=== PATIENT | male | born 1990 | race Caucasian/White ===

== ENCOUNTER → 2019-12-31 13:29 | Outpatient (BNVA) | payer OTHER, SELFPAY | PROVIDERS: PCP Internal Medicine; Visit Provider Urology | DX: R31.0 Gross hematuria (principal); R36.1 Hematospermia | CPT/HCPCS: 99214 ==

== ENCOUNTER → 2020-05-21 13:02 | Outpatient (REF) | payer OTHER, SELFPAY ==
--- NOTE | 2020-05-21 13:05 | HM_ITS ---
TEST PERFORMED: Cardiac event monitoring. ENROLLMENT PERIOD: 05/21/2020 to 06/20/2020-30 days. REQUESTING PHYSICIAN: Dr. Jones. REASON FOR TEST: Unspecified cardiac arrhythmias. FINDINGS: In the above monitoring period of 30 days, the underlying rhythm was sinus. The ventricular rates ranged from 64 beats per minute to 187 beats per minute. One isolated PVC noted. Very rare atrial ectopy. During times of the patient's symptoms including palpitations, dizziness, racing, fluttering, and shortness of breath, the underlying rhythm was sinus tachycardia. CONCLUSION: Study is positive for sinus tachycardia and very rare atrial ectopy/premature ventricular contraction, but otherwise unremarkable. Ganesh Baker MD HS/MODL / [id number]
== END ==
LOC: HO.CARD 13:02
PROVIDERS: PCP Internal Medicine; Visit Provider Internal Medicine Cardiovascular Disease
DX: I49.9 Cardiac arrhythmia, unspecified (principal); R00.2 Palpitations
CPT/HCPCS: 93270; 93272

== ENCOUNTER 2020-06-18 14:22 | Emergency (ER) | payer OTHER, SELFPAY ==
[2020-06-18 14:27] VITALS: BP 144/87; PULSE 98; O2SAT 100
--- NOTE | 2020-06-18 14:30 | PC.NURSE ---
All sx resolved upon EMS arrival to ED
[2020-06-18 14:41] VITALS: BP 137/86; PULSE 99; RESP 18; TEMP 36.8; O2SAT 98; BMI 40.4
== END 2020-06-18 15:28 | disposition left against medical advice (07) ==
PROVIDERS: Emergency Provider Emergency Medicine
DX: R42 Dizziness and giddiness (principal)
CPT/HCPCS: 99281; 99282

== ENCOUNTER → 2020-06-29 10:57 | Outpatient (BNVA) | payer OTHER, SELFPAY | PROVIDERS: PCP Internal Medicine; Visit Provider Nurse Practitioner Family | DX: R00.2 Palpitations (principal); R00.0 Tachycardia, unspecified; R07.89 Other chest pain | CPT/HCPCS: 99212 ==

== ENCOUNTER → 2020-08-25 10:35 | Outpatient (REF) | payer OTHER, SELFPAY ==
--- NOTE | 2020-08-25 10:41 | CA_ITS ---
Transthoracic Echocardiogram Patient (Last, First, Middle): Leif Tompkins N Gender: Male Date of : 1990 Age: 30 Procedure Date: 08/25/2020 Procedure Type: Transthoracic Echocardiogram Location: OP Height: 180.34 cm Weight: 136.08 kg BSA: 2.51 m2 Heart Rate: bpm BP: 120 / 80 mmHg Projection Printer: MORGAN Referring MD: Clara Cano SEED EXPERT-Perri Speech Therapy Teacher: Jun Jones MD Symptoms: R00.2 - Palpitations Study Quality: Good ECG Rhythm: Sinus Conclusions: - Normal study Findings Left Ventricle Normal left ventricular size, thickness, and systolic function. The visually estimated ejection fraction is between 55-60%. Diastolic function is normal for age. Right Ventricle Normal right ventricular cavity size and systolic function. Atria Both atria are normal in size. There is no evidence of interatrial shunt. Aortic Valve Normal aortic valve structure and function. There is no aortic valve stenosis. There is no aortic valve regurgitation. Mitral Valve Normal mitral valve structure and function. There is no mitral valve regurgitation. There is no mitral valve stenosis. Pulmonic Valve The pulmonic valve is likely normal. There is trace pulmonic valve regurgitation. Tricuspid Valve Normal tricuspid valve structure. There is trace tricuspid valve regurgitation. The right ventricular systolic pressure is normal. The right ventricular systolic pressure is 13 mmHg. There is no evidence of pulmonary hypertension. Great Vessels All visible segments of the aorta are normal in size. The pulmonary artery was not well visualized. Venous The inferior vena cava is normal in size and collapses greater than 50% with inspiration. Pericardium/Pleural There is no evidence of pericardial effusion. Prior Study Comparison No significant change compared to prior study dated: 06/03/2016. Measurements 2D Linear Measurements IVSd: 1.09 0.6-0.9/0.6-1.0 cm LVIDd: 5.19 3.9-5.3/4.2-5.9 cm LVIDd Index: 2.07 2.4-3.2/2.2-3.1 cm/m2 LVIDs: 3.62 2.0-3.6 cm LVPWd: 0.88 0.7-1.1 cm Ao Root: 3.20 2.1-3.5 cm LA Diam: 3.50 2.7-3.8/3.0-4.0 cm LAIDs Index: 1.39 1.5-2.3 cm/m2 LV Mass: 236.51 67-162/88-224 g LV Mass Index: 94.23 43-95/49-115 g/m2 LVOT Diam: 2.50 3.0+(-)1.3 cm 2D Systolic Function EF 4C: 51.30 >55% EF 2C: 56.90 >55% Mitral Valve MV Pk E: 0.89 MV PK A: 0.51 MV Decel Time: 177.00 E/A: 1.70 E'Lateral: 14.90 E'Medial: 9.46 E/E' Med: 9.40 E/E' Lat: 6.00 PHT: 52.00 MVA PHT: 4.23 Decel Beaver: 5.01 Aortic Valve AoV Pk Franki: 1.15 AoV Pk Grad: 5.00 LVOT LVOT Pk Franki: 0.91 LVOT Mn Franki: 0.60 LVOT VTI: 0.19 LVOT Pk Grad: 3.00 LVOT Mn Grad: 2.00 LVOT Diam: 2.50 LVOT Area: 4.91 Diastolic Function MV Pk E: 0.89 MV Pk A: 0.51 E/A: 1.70 E'Medial: 9.46 E/E' Med: 9.40 E' Laterial: 14.90 E/E' Lat: 6.00 Tricuspid Valve TR Pk Franki: 1.62 TR Pk Grad: 10.00 RA Press: 3.00 RVSP: 13.00 Great Vessels Aorta Ao Root-2D: 3.20 2.0-3.7 cm Ao Asc: 3.10 2.1-3.4 cm Ao Arch: 2.70 Updated in Other Vendor System with Status of Final Jun Jones MD electronically signed on 08/25/2020 5:24:44 PM with status of Final
== END ==
LOC: HO.CARD 10:35
PROVIDERS: PCP Internal Medicine; Visit Provider Nurse Practitioner Family
DX: R00.2 Palpitations (principal)
CPT/HCPCS: 93306

== ENCOUNTER 2020-11-13 12:22 | Outpatient (REF) | payer OTHER, SELFPAY ==
[2020-11-13 13:40] LABS: MANUAL DIFF FLAG NO
[2020-11-13 13:51] LABS: Basophils Absolute Auto 0.1 X10*3/uL (0.0-0.2); Basophils Percent Auto 0.9 % (0-2); Eosinophils Absolute Auto 0.3 X10*3/uL (0.0-0.4); Eosinophils Percent Auto 4.2 % (0-4); Hematocrit 46.4 % (42-52); Hemoglobin 15.4 g/dl (14.0-18.0); Imm Gran Pct Auto 1.3 % (0.0-0.4); Lymphocytes Percent Auto 26.2 % (20-40); Mean Corpuscular HGB Conc 33.2 g/dl (31.0-36.0); Mean Corpuscular Hemoglobin 28.4 pg (27.0-33.0); Mean Corpuscular Volume 85.5 fL (80-98); Mean Platelet Volume 11.2 fL (9.4-12.4); Monocytes Absolute Auto 0.6 X10*3/uL (0.1-1.2); Monocytes Percent Auto 7.3 % (2-11); Neutrophils Absolute Auto 4.6 X10*3/uL (2.0-8.3); Neutrophils Percent Auto 60.1 % (45-73); Platelet Count 279 X10*3/uL (160-400); Red Blood Count 5.43 X10*6/uL (4.60-5.80); Red Cell Distribution Width 12.9 % (11.0-16.0); White Blood Count 7.7 X10*3/uL (4.8-10.8)
[2020-11-13 14:26] LABS: Alanine Aminotransferase 45 U/L (0-40); Albumin Level 4.4 g/dL (3.5-5.0); Alkaline Phosphatase 116 U/L (39-117); Anion Gap 13 (12-20); Aspartate Amino Transferase 27 U/L (5-37); Bilirubin Total 0.6 mg/dL (0.0-1.0); Blood Urea Nitrogen 11 mg/dL (9-16); C Reactive Protein 0.65 mg/dL (< or = 0.50); Calcium 9.4 mg/dL (8.4-10.2); Carbon Dioxide 25 mmol/L (22-29); Chloride 106 mmol/L (96-108); Cholesterol 220 mg/dL; Estimated Glomerular Filt Rate > 60; Glucose Fasting 81 mg/dL (60-99); HDL Cholesterol 46 mg/dL; LDL Cholesterol Calculated 153 mg/dl; Potassium 4.3 mmol/L (3.3-5.1); Sodium 140 mmol/L (135-145); Total Protein 7.5 g/dL (6.5-8.0); Triglycerides 107 mg/dL
[2020-11-13 14:47] LABS: Erythrocyte Sedimentation Rate 7 MM/HR (0-15)
[2020-11-13 14:49] LABS: Free T4 (Free Thyroxine) 1.04 ng/dL (0.71-1.85); Thyroid Stimulating Hormone 1.23 uIU/mL (0.32-4.0); Vitamin D 25-OH Total 19.9 ng/mL (>30)
[2020-11-15 00:17] LABS: Triiodothyronine T3 Free 3.5 pg/mL (2.3-4.2)
[2020-11-16 07:43] LABS: ~HepC Num1 0.17 S/CO (0.00-0.79); ~Hepatitis C Antibody Nonreactive (Nonreactive)
== END 2020-11-13 12:23 | disposition home or self-care (01) ==
LOC: HO.HMGCLDS 12:22
PROVIDERS: PCP Internal Medicine; Visit Provider Internal Medicine
DX: Z11.59 Encounter for screening for other viral diseases (principal); H65.01 Acute serous otitis media, right ear; J45.20 Mild intermittent asthma, uncomplicated; E66.01 Morbid (severe) obesity due to excess calories
CPT/HCPCS: 36415; 80053; 80061; 82306; 84439; 84443; 84481; 85025; 85652; 86140; 86803

== ENCOUNTER 2022-11-14 13:00 | Outpatient (AMB) | payer OTHER, SELFPAY ==
--- NOTE | 2022-11-14 13:05 | A.OFFVIS_ITS ---
Intake Vital Signs 11/14/22 13:06 Height 5 ft 11 in Weight 350 lb 1.505 oz BMI 48.8 BP 136/74 Blood Pressure Location Lt brachial Position Sitting Pulse 92 Pulse Source Monitor Intake Visit Reasons: recent echo [facility] ef 40%/CMP Intake Note: Follow up with EKG after recent echo at [facility]. Die Keeper Required: No Accompanied by: Self / Same As Patient Allergies diphtheria, pertussis, tetanus vacc [Diphther,Pertuss,Tetanus Vac] Allergy (Unknown, Verified 11/14/22 13:16) UNKNOWN erythromycin base [ERYTHROMYCIN BASE] Allergy (Unknown, Verified 11/14/22 13:16) UNKNOWN DPT vac Allergy (Unknown, Uncoded 11/14/22 13:16) rash Erythromycin Allergy (Unknown, Uncoded 11/14/22 13:16) rash Medication List - Last Reconciled 11/14/22 by Jun Jones MD albuterol sulfate 90 mcg/actuation (Ventolin HFA) 1 puff inhalation Q4H PRN omeprazole 20 mg PO DAILY HPI HPI Comments History of Present Illness Details Leif comes for follow-up as he was recently told that he had LV systolic dysfunction. Review the echocardiogram which shows [id number] LV systolic dysfunction, although this was a difficult study as per the patient was a very short study. He was advised definity but he declined at that point time. He has had no valvular complaints. He has not had any symptoms related to the LV systolic dysfunction. Was advised beta-misbah and then he came here for a 2nd opinion. He has about a year ago he ended up going to [facility] because he started having skipped heartbeats followed by strong heartbeat very frequently. He was then told that he had PVCs. He continues to have symptoms of rapid heart rate which happens either after eating a when he changes position quickly. After eating his episodes can last for few hours. These are bothersome to him but he has learned to live with them. He also gets symptoms of lightheadedness when he gets up suddenly. He said all softer sudden strenuous activity he notices heart rate going rapid for few hours. He was again advised beta-misbah but he has declined and wants to get a 2nd opinion about it. He denies any exertional chest pain. No actual syncopal episodes. Denies any clear orthopnea, PND. As per his girlfriend he snores a lot and occasion is been told that he stops breathing at nighttime. He also has daytime somnolence. [facility] Medical History Palpitation Sinus tachycardia Surgical History No pertinent past surgical history Family History Father No problems noted. Mother No problems noted. Social History Alcohol intake: current Alcohol intake frequency: a few times a month Patient Tobacco Use Status: Former Tobacco user Quit Date: 2014 Years Smoked: 10 +/- Review of Systems Const Denies weakness ENT Denies dizziness Card Denies chest pain, Denies chest pain with activity, Denies syncope, Denies rapid heart rate, Denies pedal edema, Denies edema, Denies leg edema, Denies lightheadedness, Denies palpitations, Denies dyspnea, Denies dyspnea on exertion and Denies orthopnea Resp Denies cough, Denies dyspnea and Denies dyspnea on exertion GI Denies hematochezia and Denies change in stool character Musc Denies abnormal gait, Denies muscle cramps, Denies muscle weakness, Denies numbness, Denies radiating pain into limb and Denies tingling Neuro Denies abnormal gait, Denies dizziness, Denies syncope, Denies numbness, Denies tingling and Denies weakness Endo Denies palpitations Physical Exam Vital Signs: Last Vital Signs Pulse 92 11/14/22 13:06 BP 136/74 11/14/22 13:06 BMI result Body Mass Index 48.8 Const General: cooperative, healthy appearing, comfortable and no acute distress Orientation/consciousness: patient oriented x3 Neck Neck: Yes normal visual inspection and Yes no JVD Carotids: normal carotid upstroke Resp Effort & Inspection: normal respiratory effort Auscultation: clear to auscultation bilaterally, no crackles, no rales, no rhonchi and no wheezes Cardio Jugular venous distension: no JVD Rate: regular rate Rhythm: regular rhythm Heart sounds: S1 normal heart sound present, S2 normal heart sound present, no gallops, no murmurs and no rubs Peripheral pulses: Peripheral pulses 2+ throughout GI Inspection: Yes normal to inspection Neuro General: patient oriented x3 Extrem General: Yes normal to inspection, No no pedal edema and No calf tenderness Office Procedures EKG Details: EKG shows normal sinus rhythm with minimal voltage criteria for LVH otherwise normal EKG at 92 beats per minute [id number], Complete Assessment & Plan Assessment & Plan (1) Left ventricular systolic dysfunction (LVSD): Code(s): I51.9 - Heart disease, unspecified Plan: Reported LV systolic dysfunction at an outside practice with was limited study due to his body habitus. Would like to confirm the diagnosis of cardiomyopathy. Will suggest a limited echocardiogram with definity to assess for LV systolic function. If he definitely has underlying LV systolic dysfunction would benefit for him beta-misbah therapy and this was discussed with him. However he also require further workup for cardiomyopathy including ischemic workup to rule out ischemic cardiomyopathy and/or high likelihood of obstructive sleep apnea will probably need sleep study as well in the future. Treatment based on the finding of the echocardiogram. This was discussed with him. Signs and symptoms of heart failure were discussed with him. (2) Palpitation: Code(s): R00.2 - Palpitations Plan: Symptoms of palpitations, he has 2 different forms of palpitations. He has isolated and strong heartbeat suggestive PVCs as well as rapid heart rate in the past which was felt to be inappropriate sinus tachycardia. This suggestion of autonomic dysfunction with postprandial as well as minimal exercise related prolonged sinus tachycardia. This could be a variant of postural orthostatic tachycardia syndrome. Will obtain a 14 day Holter monitor to assess for frequency of sinus tachycardia and correlated with the symptoms including symptoms of PVCs. If he does have LV systolic dysfunction he will definitely benefit from beta-misbah therapy. This was discussed with him. (3) Lightheadedness: Code(s): R42 - Dizziness and giddiness Plan: Intermittent episodes of positional lightheadedness which are most likely suggestive of orthostatic lightheadedness. Advised to increase water intake. Advised to avoid caffeine and alcohol intake. Increase fluid intake was recommended. Will suggest head-up tilt-table test to assess for autonomic function. Will follow up in the clinic after above-mentioned test. Thank you for allowing me to partake in his care Orders: Orders CA echo limited Today I51.9 - Heart disease, unspecified ECG 14 day holter monitor Today R00.2 - Palpitations ECG Tilt Table Test Today R42 - Dizziness and giddiness Coding Level of Care Code Est Pt Level 4 (43168) Diagnoses Left ventricular systolic dysfunction (LVSD) I51.9 Palpitation R00.2 Lightheadedness R42 CPT Codes EKG - CPT: 86237-[id number], Complete ([id number])
[2022-11-14 13:06] VITALS: BP 136/74; PULSE 92; BMI 48.8
== END 2022-11-14 13:50 | disposition home or self-care (01) ==
PROVIDERS: PCP Internal Medicine; Referring Provider Internal Medicine; Visit Provider Internal Medicine Cardiovascular Disease
DX: I51.9 Heart disease, unspecified (principal); R00.2 Palpitations; R42 Dizziness and giddiness
CPT/HCPCS: 93010; 99214

== ENCOUNTER → 2022-11-14 13:00 | Outpatient (BNVA) | payer OTHER, SELFPAY | PROVIDERS: PCP Internal Medicine; Referring Provider Internal Medicine; Visit Provider Internal Medicine Cardiovascular Disease | DX: I51.9 Heart disease, unspecified (principal); R00.2 Palpitations; R42 Dizziness and giddiness | CPT/HCPCS: 93005; 99212 ==

== ENCOUNTER → 2022-12-09 13:10 | Outpatient (REF) | payer OTHER, SELFPAY ==
--- NOTE | 2022-12-09 13:14 | CA_ITS ---
Transthoracic Echocardiogram Patient (Last, First, Middle): Leif Tompkins N Gender: Male Date of : 1990 Age: 32 Procedure Date: 12/09/2022 Procedure Type: Transthoracic Echocardiogram Location: OP Height: 180.34 cm Weight: 154.22 kg BSA: 2.64 m2 Heart Rate: bpm BP: 128 / [address] Judge: TO Referring MD: Jun Jones MD Symptoms: I51.9 - Heart disease, unspecified Study Quality: Fair/Contrast/Limited Conclusions: - Limited study. - Normal left ventricular size, thickness, systolic function, and wall motion. The visually estimated ejection fraction is between 55-60%. Findings Procedure Information Contrast agent, definity, is being given per protocol without apparent complications. Left Ventricle Normal left ventricular size, thickness, systolic function, and wall motion. The visually estimated ejection fraction is between 55-60%. Pericardium/Pleural There is no evidence of pericardial effusion. Prior Study Comparison No change compared to prior study dated: 06/03/2016. Measurements 2D Linear Measurements IVSd: 0.98 0.6-0.9/0.6-1.0 cm LVIDd: 5.24 3.9-5.3/4.2-5.9 cm LVIDd Index: 1.98 2.4-3.2/2.2-3.1 cm/m2 LVIDs: 3.76 2.0-3.6 cm LVPWd: 0.92 0.7-1.1 cm LV Mass: 229.40 67-162/88-224 g LV Mass Index: 86.89 43-95/49-115 g/m2 LVOT Diam: 2.40 3.0+(-)1.3 cm 2D Systolic Function EF 4C: 55.10 >55% EF 2C: 47.80 >55% EF BiP: 51.10 >55% LVOT LVOT Pk Franki: 0.67 LVOT Mn Franki: 0.43 LVOT VTI: 0.12 LVOT Pk Grad: 2.00 LVOT Mn Grad: 1.00 LVOT Diam: 2.40 LVOT Area: 4.52 Tricuspid Valve RA Press: 8.00 Updated in Other Vendor System with Status of Final James Loya MD electronically signed on 12/11/2022 5:02:27 PM with status of Final
== END ==
LOC: HO.CARD 13:10
PROVIDERS: PCP Internal Medicine; Visit Provider Internal Medicine Cardiovascular Disease
DX: R00.2 Palpitations (principal); I51.9 Heart disease, unspecified
CPT/HCPCS: 93246; 93308; Q9957

== ENCOUNTER → 2022-12-09 13:14 | Outpatient (BNV) | payer OTHER, SELFPAY | PROVIDERS: PCP Internal Medicine; Visit Provider Internal Medicine Cardiovascular Disease | DX: I51.9 Heart disease, unspecified (principal) | CPT/HCPCS: 93308 ==

== ENCOUNTER 2023-01-16 15:22 | Outpatient (AMB) | payer OTHER, SELFPAY ==
[2023-01-16 15:24] VITALS: BP 124/80; PULSE 92; BMI 47.1
--- NOTE | 2023-01-16 15:24 | A.OFFVIS_ITS ---
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 Recent echocardiogram shows normal LV ejection fraction 55-60% in consistent with absence of cardiomyopathy. He had a Holter monitor which did not show any significant arrhythmias. However he says during 2 weeks of wearing the monitor he did not have any significant symptoms. Since then he has had recurrent symptoms of skipped heartbeats. He has gone back to clinic in since hospital and was noted to have isolated PVCs. He is very symptomatic with head with symptoms of skipped heartbeats, diaphoresis, gets anxious and occasionally gets lightheaded. He started exercising as lost about 16 lb. He denies any syncopal episodes. [facility] Medical History (Updated 01/16/23 @ 15:55 by Jun Jones MD) Sinus tachycardia Palpitation Surgical History No pertinent past surgical history Family History Father No problems noted. Mother No problems noted. Social History Alcohol intake: current Alcohol intake frequency: a few times a month Patient Tobacco Use Status: Former Tobacco user Quit Date: 2014 Years Smoked: 10 +/- Review of Systems Const Denies chills, Denies fatigue, Denies fever(s), Denies frequent falls, Denies weakness, Denies weight gain and Denies weight loss ENT Denies dizziness Card Denies chest pain, Denies leg edema, Denies lightheadedness, Denies palpitations, Denies dyspnea, Denies dyspnea on exertion, Denies orthopnea and Denies other (loss of consciousness) Resp Denies cough, Denies dyspnea and Denies dyspnea on exertion GI Denies hematochezia and Denies change in stool character Musc Denies abnormal gait, Denies muscle weakness, Denies numbness, Denies radiating pain into limb and Denies tingling Neuro Denies abnormal gait, Denies dizziness, Denies frequent falls, Denies numbness, Denies tingling and Denies weakness Endo Denies fatigue and Denies palpitations Physical Exam Const General: cooperative, healthy appearing, comfortable and no acute distress Orientation/consciousness: patient oriented x3 Neck Neck: Yes normal visual inspection and Yes no JVD Carotids: normal carotid upstroke Resp Effort & Inspection: normal respiratory effort Auscultation: clear to auscultation bilaterally, no crackles, no rales, no rhonchi and no wheezes Cardio Jugular venous distension: no JVD Rate: regular rate Rhythm: regular rhythm Heart sounds: S1 normal heart sound present, S2 normal heart sound present, no gallops, no murmurs and no rubs Peripheral pulses: Peripheral pulses 2+ throughout GI Inspection: Yes normal to inspection Neuro General: patient oriented x3 Extrem General: Yes normal to inspection, No no pedal edema and No calf tenderness Assessment & Plan Assessment & Plan (1) PVC (premature ventricular contraction): Code(s): I49.3 - Ventricular premature depolarization Plan: Highly symptomatic PVCs with normal LV systolic function by recent echocardiogram with definity contrast. Benign prognosis with Isolated PVCs was discussed in details. Potential triggers were discussed. Advised stress mitigation strategies. Advised to avoid stimulants. Advised to continue to participate in heart healthy lifestyle with weight reduction. If he persists with symptomatic PVCs can try metoprolol therapy to suppress is arrhythmias. Will follow up in the clinic in 1 year's time, sooner p.r.n.. Thank you for allowing me to partake in his care Coding Level of Care Code Est Pt Level 3 (51780) Diagnoses PVC (premature ventricular contraction) I49.3
== END 2023-01-16 16:05 | disposition home or self-care (01) ==
PROVIDERS: PCP Internal Medicine; Visit Provider Internal Medicine Cardiovascular Disease
DX: I49.3 Ventricular premature depolarization (principal)
CPT/HCPCS: 99213

== ENCOUNTER → 2023-01-16 15:22 | Outpatient (BNVA) | payer OTHER, SELFPAY | PROVIDERS: PCP Internal Medicine; Visit Provider Internal Medicine Cardiovascular Disease | DX: I49.3 Ventricular premature depolarization (principal) | CPT/HCPCS: 99212 ==

== ENCOUNTER 2023-04-25 08:58 | Outpatient (REF) | payer OTHER, SELFPAY ==
--- NOTE | ~2023-04-25 | FL_ITS ---
EXAMINATION: XR FLUOROSCOPY UPPER GI WITH AIR CLINICAL INFORMATION: Dyspepsia COMPARISON: 11/14/2016 barium swallow. TECHNIQUE: Fluoroscopic air contrast upper GI examination was performed utilizing standard techniques with thin and thick barium and effervescent granules. Numerous spot images were obtained. FINDINGS: Lateral cine images of the oropharynx and hypopharynx demonstrate normal swallow mechanism with normal epiglottic inversion and soft palate elevation. No tracheal penetration, glottic or subglottic aspiration identified. No nasopharyngeal reflux present. Hypopharyngeal structures appear normal without evidence of mass or diverticulum. There was no significant cricopharyngeal achalasia. Dual and single contrast images of the esophagus demonstrate normal caliber, contour, and mucosal pattern. No evidence of stricture, mass, or ulcerations identified. Esophageal peristalsis was normal. No evidence of hiatus hernia identified. Gastroesophageal reflux is seen up to the midesophagus. Dual contrast and single contrast images of the stomach demonstrated somewhat poor coating of the lesser curvature and superior wall. Otherwise stomach demonstrates normal contour and mucosal pattern without evidence of mass, ulceration, or other abnormality. Contrast freely passed into the gastric antrum and duodenal bulb without delay. Single and air-contrast images of the duodenal bulb demonstrate no abnormality. The duodenal sweep has a normal appearance, course, and mucosal fold appearance. No malrotation. The imaged proximal jejunum has a normal fold pattern and caliber. FLUOROSCOPY TIME: 3 minutes 39 seconds Number of Spot Images: 7 Number of Cine: 9 DOSE AREA PRODUCT: 3607 uGy-m2 (microgray-meter squared) FL/FL upper GI w air w Ba Swallow IMPRESSION: 1. Moderate gastroesophageal reflux. 2. Otherwise normal examination. This procedure was performed by Joshua Delgado PA-C, and supervised by Dr. Woo
== END 2023-04-25 08:59 | disposition home or self-care (01) ==
LOC: HO.XRAY 08:58
PROVIDERS: PCP Internal Medicine; Visit Provider Internal Medicine
DX: R10.13 Epigastric pain (principal)
CPT/HCPCS: 74246

== ENCOUNTER → 2023-04-25 09:15 | Outpatient (BNV) | payer OTHER, SELFPAY | PROVIDERS: PCP Internal Medicine; Visit Provider Radiology Diagnostic Radiology | DX: K30 Functional dyspepsia (principal) | CPT/HCPCS: 74246 ==

== ENCOUNTER → 2023-10-04 13:37 | Outpatient (BNVA) | payer SELFPAY | PROVIDERS: PCP Internal Medicine; Visit Provider Nurse Practitioner | DX: R42 Dizziness and giddiness (principal) ==

== ENCOUNTER 2023-11-03 12:21 | Outpatient (REF) | payer MEDICAID, SELFPAY ==
[2023-11-03 16:00] LABS: MANUAL DIFF FLAG NO
[2023-11-03 16:10] LABS: Basophils Percent Auto 0.5 % (0-2); Eosinophils Absolute Auto 0.1 X10*3/uL (0.0-0.4); Eosinophils Percent Auto 0.8 % (0-4); Hematocrit 45.9 % (42.0-52.0); Hemoglobin 15.5 g/dl (14.0-18.0); Imm Gran Abs Auto 0.06 X10*3/uL (0.00-0.03); Imm Gran Pct Auto 0.8 % (0.0-0.4); Lymphocytes Absolute Auto 1.4 X10*3/uL (1.2-4.9); Lymphocytes Percent Auto 18.6 % (20-40); Mean Corpuscular HGB Conc 33.8 g/dl (31.0-36.0); Mean Corpuscular Hemoglobin 28.6 pg (27.0-33.0); Mean Corpuscular Volume 84.7 fL (80.0-98.0); Mean Platelet Volume 12.5 fL (9.4-12.4); Monocytes Absolute Auto 0.5 X10*3/uL (0.1-1.2); Monocytes Percent Auto 6.9 % (2-11); Neutrophils Absolute Auto 5.5 x10*3/uL (2.0-8.3); Neutrophils Percent Auto 72.4 % (45-73); Platelet Count 279 X10*3/uL (160-400); Red Blood Count 5.42 X10*6/uL (4.60-5.80); Red Cell Distribution Width 12.9 % (11.0-16.0); White Blood Count 7.6 X10*3/uL (4.8-10.8)
[2023-11-03 16:17] LABS: Appearance Urine Clear; Color Urine Yellow; Glucose Urine UA Negative (Negative); Leukocyte Esterase Urine Negative (Negative); Nitrite Urine Negative (Negative); Specific Gravity - Urine 1.015 (1.005-1.025); Urine Blood Negative (Negative); Urine Ketones Negative (Negative); Urine Protein Negative (Neg-Trace)
[2023-11-03 16:23] LABS: Bacteria Urine None Seen (None Seen); Hyaline Casts Urine 0-2 /LPF (0-2); RBC Urine 0-2 /HPF (0-2); Squamous Epithelial Cell Urine 0-2 /HPF (0-2); WBC Urine 0-5 /HPF (0-5)
[2023-11-03 16:45] LABS: Alanine Aminotransferase 37 U/L (0-40); Albumin Level 4.1 g/dL (3.5-5.0); Alkaline Phosphatase 116 U/L (39-117); Anion Gap 12 (12-20); Aspartate Amino Transferase 21 U/L (5-37); Bilirubin Direct 0.2 mg/dL (0.0-0.5); Bilirubin Total 0.4 mg/dL (0.0-1.0); Blood Urea Nitrogen 9 mg/dL (9-16); Calcium 9.3 mg/dL (8.4-10.2); Carbon Dioxide 23 mmol/L (22-29); Chloride 109 mmol/L (96-108); Cholesterol 194 mg/dL (<200); Estimated Glomerular Filt Rate > 60; Glucose Fasting 86 mg/dL (60-99); HDL Cholesterol 47 mg/dL (>40); LDL Cholesterol Calculated 132 mg/dL (<100); Potassium 4.1 mmol/L (3.3-5.1); Sodium 140 mmol/L (135-145); Total Protein 7.4 g/dL (6.5-8.0); Triglycerides 76 mg/dL (<150)
[2023-11-03 16:48] LABS: Thyroid Stimulating Hormone 1.32 uIU/mL (0.32-4.0)
[2023-11-03 17:17] LABS: Erythrocyte Sedimentation Rate 9 MM/HR (0-15)
== END 2023-11-03 12:22 | disposition home or self-care (01) ==
LOC: HO.HMGCLDS 12:21
PROVIDERS: PCP Internal Medicine; Visit Provider Internal Medicine
DX: F41.8 Other specified anxiety disorders (principal); E78.00 Pure hypercholesterolemia, unspecified; K21.9 Gastro-esophageal reflux disease without esophagitis
CPT/HCPCS: 36415; 80048; 80061; 80076; 81001; 84443; 85025; 85652; 86140

== ENCOUNTER 2024-01-10 13:02 | Outpatient (AMB) | payer OTHER, SELFPAY ==
--- NOTE | 2024-01-10 13:06 | A.OFFVIS_ITS ---
Vital Signs 01/10/24 13:07 Height 5 ft 11 in Weight 352 lb BMI 49.1 BP 142/97 H Blood Pressure Location Rt brachial Position Sitting Pulse 106 H Pulse Source Doppler Pulse Oximetry (%) 98 Oxygen Delivery Method Room Air Intake Visit Reasons: snoring/obesity Allergies diphtheria, pertussis, tetanus vacc [Diphther,Pertuss,Tetanus Vac] Allergy (Unknown, Verified 01/10/24 13:12) UNKNOWN erythromycin base [ERYTHROMYCIN BASE] Allergy (Unknown, Verified 01/10/24 13:12) UNKNOWN DPT vac Allergy (Unknown, Uncoded 11/14/22 13:16) rash Erythromycin Allergy (Unknown, Uncoded 11/14/22 13:16) rash HPI HPI snoring/obesity: Details: 33-year-old gentleman, former paroxysmally 50 pack-year smoker, quit 2014 referred for evaluation of unrestful sleep, daytime somnolence, and snoring. Patient states that he has had prior sleep apnea workup in 2017 which was negative, however the time his weight was significantly lower. He is interested in further sleep apnea workup. [facility] Medical History (Updated 01/10/24 @ 13:29 by Martínez Garcia MD) Sinus tachycardia Palpitation Surgical History No pertinent past surgical history Family History Father No problems noted. Mother No problems noted. Social History (Updated 01/10/24 @ 13:11 by Cassy Rehman Kyle) Alcohol intake: current Alcohol intake frequency: a few times a month Patient Tobacco Use Status: Former Tobacco user Tobacco use type: Cigarette Years Smoked: 10 +/- , started at age 15, quit 2014, 2PPD Review of Systems Const Reports daytime sleepiness, Reports fatigue and Reports snoring Card Reports dyspnea on exertion Resp Denies cough, Reports dyspnea on exertion, Reports snoring and Denies wheezing Endo Reports fatigue Aller/Immun Denies wheezing Physical Exam Vital Signs: Last Vital Signs Pulse 106 H 01/10/24 13:07 BP 142/97 H 01/10/24 13:07 Pulse Ox 98 01/10/24 13:07 Oxygen Delivery Method Room Air 01/10/24 13:07 BMI result Body Mass Index 49.1 Const General: no acute distress and alert Nutritional Appearance: obese Orientation/consciousness: Other orientation findings ( oriented) HEENT Head: Yes atraumatic Eyes General: appearance normal, both eyes and all related structures Sclerae: sclerae normal EOM: EOMs intact bilaterally Neck Neck: Yes supple Lymphatic: no lymphadenopathy noted Resp Effort & Inspection: normal respiratory effort and no use of accessory muscles Auscultation: clear to auscultation bilaterally Cardio Rate: regular rate Rhythm: regular rhythm Heart sounds: no gallops, no murmurs and no rubs Skin General skin exam: other ( warm) Extrem General: No clubbing, No cyanosis and No edema Assessment & Plan Assessment & Plan (1) MAYCOL (obstructive sleep apnea): Code(s): G47.33 - Obstructive sleep apnea (adult) (pediatric) Category: Medical Plan: Unrestful sleep, daytime sleepiness, snoring. Sleepiness Scale score of 16. Will obtain home sleep study. Orders: Orders RT home sleep study Today G47.33 - Obstructive sleep apnea (adult) (pediatric) Coding Level of Care Code New Pt Level 3 (34409) Diagnoses MAYCOL (obstructive sleep apnea) G47.33
[2024-01-10 13:07] VITALS: BP 142/97; PULSE 106; O2SAT 98; BMI 49.1
== END 2024-01-10 13:28 | disposition home or self-care (01) ==
PROVIDERS: PCP Internal Medicine; Visit Provider Internal Medicine Pulmonary Disease
DX: G47.33 Obstructive sleep apnea (adult) (pediatric) (principal)
CPT/HCPCS: 99203

== ENCOUNTER → 2024-01-10 13:02 | Outpatient (BNVA) | payer MEDICAID, SELFPAY | PROVIDERS: PCP Internal Medicine; Visit Provider Internal Medicine Pulmonary Disease | DX: G47.33 Obstructive sleep apnea (adult) (pediatric) (principal) | CPT/HCPCS: 99202 ==

== ENCOUNTER → 2024-02-14 16:00 | Outpatient (REF) | payer OTHER, SELFPAY | LOC: HO.SL 16:00 | PROVIDERS: PCP Internal Medicine; Visit Provider Internal Medicine Pulmonary Disease | DX: G47.33 Obstructive sleep apnea (adult) (pediatric) (principal) | CPT/HCPCS: 95806 ==

== ENCOUNTER → 2024-02-15 08:45 | Outpatient (BNV) | payer OTHER, SELFPAY | PROVIDERS: PCP Internal Medicine; Visit Provider Internal Medicine | DX: G47.33 Obstructive sleep apnea (adult) (pediatric) (principal) | CPT/HCPCS: 95806 ==

== ENCOUNTER 2024-02-25 17:02 | Emergency (ER) | payer OTHER, SELFPAY ==
--- NOTE | ~2024-02-25 | XR_ITS ---
EXAMINATION: XR CHEST CLINICAL INFORMATION: palpitations COMPARISON: 02/04/2017 TECHNIQUE: 2 views of the chest were obtained. FINDINGS: There is marked biconvex thoracolumbar scoliosis, otherwise, no significant abnormality is noted involving the heart, lungs, mediastinum, bony thorax or soft tissues. No interval change when compared to 2017 XR/XR chest 2V IMPRESSION: No acute intrathoracic disease. Marked scoliosis. Electronically signed by: Hudson Vasquez MD 02/25/2024 07:02 PM EMILY REIS
--- NOTE | 2024-02-25 17:04 | ECG_ITS ---
Test Reason : tachycardia Blood Pressure : / mmHG Vent. Rate : 137 BPM Atrial Rate : 137 BPM P-R Int : 124 ms QRS Dur : 078 ms QT Int : 288 ms P-R-T Axes : 033 000 017 degrees QTc Int : 434 ms Sinus tachycardia Otherwise normal ECG When compared with ECG of 23-AUG-2019 16:04, No significant change was found Referred By: Verna Albright Electronically Signed By:JAMMIE SARMIENTO MD
--- NOTE | 2024-02-25 17:09 | ED_ITS ---
HPI - Arrhythmia/Palpitations General Chief Complaint: Arrhythmia/Palpitations Stated Complaint: High heart rate Time Seen by Provider: 02/25/24 18:52 Source: patient, RN notes reviewed and old records reviewed Mode of arrival: ambulatory Limitations: no limitations History of Present Illness ED Provider: Therese MIRANDA narrative: 33-year-old male with past medical history significant for sinus tachycardia, asthma, obesity presents for evaluation of tachycardia. Patient follows with Cardiology, Dr. Jones due to tachycardia He is not currently on any medications for his tachycardia. He has previously tried metoprolol and labetalol and did not tolerate either of them. His doctor did not want to try propranolol due to his history of asthma The patient reports that he gets episodes of tachycardia fairly frequently but they usually last about 10 minutes before resolving. Today his heart rate was as high as 180 while he was dropping his daughter off His symptoms did not resolve prompting him to come to the ER today He denies any pain or shortness of breath Related Data Home Medications ?Medication ?Instructions ?Recorded ?Confirmed albuterol sulfate 90 mcg/actuation 1 puff inhalation Q4H PRN 11/14/22 11/14/22 aerosol inhaler (Ventolin HFA) omeprazole 20 mg capsule,delayed 20 mg PO DAILY 11/14/22 11/14/22 release Previous Rx's ?Medication ?Instructions ?Recorded labetalol 100 mg tablet 50 mg (1/2 x 100 mg) PO BID #30 10/04/23 tabs Allergies Allergy/AdvReac Type Severity Reaction Status Date / Time diphtheria, pertussis, Allergy Unknown UNKNOWN Verified 02/25/24 17:12 tetanus vacc [Diphther,Pertuss,Tetanus Vac] erythromycin base Allergy Unknown UNKNOWN Verified 02/25/24 17:12 [ERYTHROMYCIN BASE] DPT vac Allergy Unknown rash Uncoded 11/14/22 13:16 Erythromycin Allergy Unknown rash Uncoded 11/14/22 13:16 Review of Systems 2 Constitutional: Constitutional: Denies body ache(s), Denies chills, Denies fever(s) and Denies headache(s) Eyes: Eyes: Denies blurry vision ENT: Denies dysphagia, Denies vertigo, Denies dizziness and Denies headache(s) Cardiovascular: Cardiovascular: Denies chest pain, Reports rapid heart rate, Reports palpitations and Denies dyspnea Respiratory: Respiratory: Denies cough and Denies dyspnea Gastrointestinal: Gastrointestinal: Denies abdominal pain, Denies dysphagia and Denies vomiting Musculoskeletal: Musculoskeletal: Denies back pain Integumentary/Breasts: Skin/Breast: Denies rash Neurologic: Denies vertigo, Denies dizziness and Denies headache(s) Endocrine: Endocrine: Reports palpitations PMFSH Past Medical History Medical History (Updated 02/25/24 @ 19:26 by Joshua Saleh) Sinus tachycardia Palpitation Surgical History No pertinent past surgical history Family History Family History Father No problems noted. Mother No problems noted. Social History Social History (Updated 01/10/24 @ 13:11 by MATHIEU Carney) Alcohol intake: current Alcohol intake frequency: a few times a month Patient Tobacco Use Status: Former Tobacco user Tobacco use type: Cigarette Years Smoked: 10 +/- , started at age 15, quit 2015, 2PPD Advance Directives: No Advance Directives Information Provided: Yes Physical Exam 2 Vital Signs: Vital Signs: Last Vital Signs Temp 98.2 F 02/25/24 19:01 Pulse 113 H 02/25/24 19:01 Resp 19 02/25/24 19:01 BP 133/89 02/25/24 19:01 Pulse Ox 99 02/25/24 19:01 O2 Del Method Room Air 02/25/24 19:01 BMI result Body Mass Index 47.4 Const: General: healthy appearing, comfortable, no acute distress, alert and awake Nutritional Appearance: well nourished Orientation/consciousness: p atient oriented x3 HEENT: Head: Yes normocephalic and Yes atraumatic Eyes: Eyelids: Yes eyelids normal Conjunctivae: conjunctivae normal S clerae: sclerae normal Corneas: corneas normal Pupils: Equal, round and reactive pupils present EOM: EOMs intact bilaterally Neck: Neck: Yes full ROM Resp: Effort & Inspection: normal respiratory effort, able to speak in complete sentences and not labored Cardio: Rate: tachycardic Rhythm: abnormal rhythm and regular rhythm GI: Inspection: No distended Palpation (GI): Soft to palpation, not firm, nontender, no guarding and not rigid Skin: General skin exam: elasticity normal Neuro: General: patient oriented x3 Cranial nerves: Yes Equal, round and reactive pupils present and Yes Bilaterally intact EOM present Cognition (Neuro): normal cognition Course Course Course Narrative: This is a rapid medical exam. Deferred additional HPI, ROS, PE to primary provider. 33 yo male with history anxiety, scoliosis, asthma, PVCs here with complaints of dizziness/palpitations x several hours after eating. Patient reports he has been having these episodes over the last few weeks usually after eating. Will obtain labs, EKG, CXR, orthos In triage HR 130's BP stable -A. Pascucci COVERAGE SPECIALIST RN Medications Administered Discontinued Medications Generic Name Dose Route Start Last Admin Trade Name Freq PRN Reason Stop Dose Admin Sodium Chloride 1,000 mls @ 999 mls/hr 02/25/24 17:12 02/25/24 18:07 Ns IV 02/25/24 18:12 999 mls/hr .Q1H1M STA Administration Medical Decision Making Medical Decision Making [facility] Narrative: 33-year-old male presents for evaluation of tachycardia. He had a workup that included labs, EKG chest x-ray. His EKG was sinus tachycardia with a rate of 137. In his labs have no significant abnormalities, he had a TSH that was normal, a D-dimer was also negative. There was no obvious source of infection, I doubt sepsis as a cause of his tachycardia. His chest x-ray was clear. His heart rate improved with IV fluids and he reports that he has a cardiology appointment in 2 days on Monday. I will not make any medication adjustments at this time given that he sees cardiology in 2 days and is currently asymptomatic he reports that his symptoms have resolved after receiving IV fluids Differential Diagnosis Differential Diagnoses: The differential diagnosis associated with the presentation includes Sinus tachycardia PE Hyperthyroidism Dehydration Admission/Observation Consideration of admission/observation: Escalation of care including admission/observation considered Consider admission due to tachycardia as high as 150 however this resolved with IV fluid Lab Data [facility] Lab Attestation statement: I reviewed the patient's lab results. No leukocytosis or anemia. Normal platelet count. No electrolyte abnormalities. TSH within normal limits. D-dimer negative 02/25/24 17:39 02/25/24 17:39 Labs: Lab Results 02/25/24 Range/Units 17:39 WBC 10.7 (4.8-10.8) X10*3/uL RBC 5.39 (4.60-5.80) X10*6/uL Hgb 15.5 (14.0-18.0) g/dl Hct 45.9 (42.0-52.0) % MCV 85.2 (80.0-98.0) fL MCH 28.8 (27.0-33.0) pg MCHC 33.8 (31.0-36.0) g/dl RDW 12.5 (11.0-16.0) % Plt Count 294 (160-400) X10*3/uL MPV 11.3 (9.4-12.4) fL Immature Gran % (Auto) 0.8 H (0.0-0.4) % Neut % (Auto) 66.7 (45-73) % Lymph % (Auto) 22.5 (20-40) % [place] % (Auto) 8.3 (2-11) % Eos % (Auto) 0.9 (0-4) % Baso % (Auto) 0.8 (0-2) % Lymph # (Auto) 2.4 (1.2-4.9) X10*3/uL [place] # (Auto) 0.9 (0.1-1.2) X10*3/uL Eos # (Auto) 0.1 (0.0-0.4) X10*3/uL Baso # (Auto) 0.1 (0.0-0.2) X10*3/uL Abs Immat Gran (auto) 0.08 H (0.00-0.03) X10*3/uL Absolute Neuts (auto) 7.1 (2.0-8.3) x10*3/uL Absolute Nucleated RBC 0.000 (0.0-0.012) X10*3/uL Nucleated RBC % (auto) 0.0 (0.0-0.2) /100WBC PT 10.9 (10.9-12.4) SEC INR 0.9 (0.9-1.1) D-Dimer High Sensitivty < 150 NG/ML Sodium 139 (135-145) mmol/L Potassium 3.8 (3.3-5.1) mmol/L Chloride 104 (96-108) mmol/L Carbon Dioxide 25 (22-29) mmol/L Anion Gap 14 (12-20) BUN 10 (9-16) mg/dL Creatinine 0.85 (0.5-1.4) mg/dL Estim Creat Clear Calc 188.5 Estimated GFR > 60 Random Glucose 87 (60-115) mg/dL Calcium 9.4 (8.4-10.2) mg/dL Magnesium 2.1 (1.6-2.6) mg/dL Total Bilirubin 0.3 (0.0-1.0) mg/dL Direct Bilirubin 0.1 (0.0-0.5) mg/dL AST 29 (5-37) U/L ALT 51 H (0-40) U/L Alkaline Phosphatase 112 (39-117) U/L Troponin I High Sens < 2.7 (<3.5-35.0) ng/L Total Protein 7.8 (6.5-8.0) g/dL Albumin 4.3 (3.5-5.0) g/dL TSH 2.18 (0.32-4.0) uIU/mL Discharge Plan Discharge Clinical Impression: Sinus tachycardia Patient Disposition: Home, Self-Care Instructions: Tachycardia (ED) Additional Instructions: Your workup in the ER today was reassuring You do ave sinus tachycardia but all your other testing was unremarkable. Follow-up with cardiology on Monday as planned Return for new or worsening symptoms Prescriptions: No Action labetalol 100 mg tablet 50 mg PO BID Qty: 30 5RF albuterol sulfate [Ventolin HFA] 90 mcg/actuation HFA aerosol inhaler 1 puff inhalation Q4H PRN omeprazole 20 mg capsule,delayed release(DR/EC) 20 mg PO DAILY Referrals: Jun Jones MD [Physician] - (sinus tachycardia) Print Language: Divehi
[2024-02-25 17:10] VITALS: BP 139/99; PULSE 135; RESP 18; TEMP 36.5; O2SAT 100; BMI 47.4
[2024-02-25 17:44] LABS: MANUAL DIFF FLAG NO
[2024-02-25 17:46] LABS: Basophils Absolute Auto 0.1 X10*3/uL (0.0-0.2); Basophils Percent Auto 0.8 % (0-2); Eosinophils Absolute Auto 0.1 X10*3/uL (0.0-0.4); Eosinophils Percent Auto 0.9 % (0-4); Hematocrit 45.9 % (42.0-52.0); Hemoglobin 15.5 g/dl (14.0-18.0); Imm Gran Abs Auto 0.08 X10*3/uL (0.00-0.03); Imm Gran Pct Auto 0.8 % (0.0-0.4); Lymphocytes Absolute Auto 2.4 X10*3/uL (1.2-4.9); Lymphocytes Percent Auto 22.5 % (20-40); Mean Corpuscular HGB Conc 33.8 g/dl (31.0-36.0); Mean Corpuscular Hemoglobin 28.8 pg (27.0-33.0); Mean Corpuscular Volume 85.2 fL (80.0-98.0); Mean Platelet Volume 11.3 fL (9.4-12.4); Monocytes Absolute Auto 0.9 X10*3/uL (0.1-1.2); Monocytes Percent Auto 8.3 % (2-11); Neutrophils Absolute Auto 7.1 x10*3/uL (2.0-8.3); Neutrophils Percent Auto 66.7 % (45-73); Platelet Count 294 X10*3/uL (160-400); Red Blood Count 5.39 X10*6/uL (4.60-5.80); Red Cell Distribution Width 12.5 % (11.0-16.0); White Blood Count 10.7 X10*3/uL (4.8-10.8)
[2024-02-25 17:48] VITALS: BP 148/81; PULSE 123
[2024-02-25 17:50] VITALS: BP 150/97; PULSE 149
[2024-02-25 17:52] LABS: INTERNATIONAL NORM RATIO 0.9 (0.9-1.1); Prothrombin Time 10.9 SEC (10.9-12.4)
[2024-02-25 17:53] VITALS: BP 160/95; PULSE 148
[2024-02-25 18:02] LABS: Alanine Aminotransferase 51 U/L (0-40); Albumin Level 4.3 g/dL (3.5-5.0); Alkaline Phosphatase 112 U/L (39-117); Anion Gap 14 (12-20); Aspartate Amino Transferase 29 U/L (5-37); Bilirubin Direct 0.1 mg/dL (0.0-0.5); Bilirubin Total 0.3 mg/dL (0.0-1.0); Blood Urea Nitrogen 10 mg/dL (9-16); Calcium 9.4 mg/dL (8.4-10.2); Carbon Dioxide 25 mmol/L (22-29); Chloride 104 mmol/L (96-108); Creatinine Clr Calc Pharmacy 188.5; Estimated Glomerular Filt Rate > 60; Glucose Random 87 mg/dL (60-115); Magnesium 2.1 mg/dL (1.6-2.6); Potassium 3.8 mmol/L (3.3-5.1); Sodium 139 mmol/L (135-145); Total Protein 7.8 g/dL (6.5-8.0)
[2024-02-25] MEDS: 0.9 % Sodium Chloride 1,000 ML 999 ML IV (18:07)
[2024-02-25 18:10] LABS: Troponin-I High Sensitivity < 2.7 ng/L (<3.5-35.0)
[2024-02-25 18:23] LABS: TSH reflex Free T4 2.18 uIU/mL (0.32-4.0)
[2024-02-25 19:01] VITALS: BP 133/89; PULSE 113; RESP 19; TEMP 36.8; O2SAT 99
[2024-02-25 19:19] LABS: D Dimer High Sensitivity < 150 NG/ML
[2024-02-25 20:01] VITALS: BP 127/78; PULSE 103; RESP 18; TEMP 36.6; O2SAT 99
--- OUTSIDE RECORDS SUMMARY | 2024-02-28 12:10 | XMS_ITS ---
Author Organization Mahendra Delacruz DO, FACP Address [address] [place] [address] [phone] Care Team Providers Care Lead Miner Blasting Name Role Phone Mahendra Delacruz Primary Care Provider [phone] REASON FOR VISIT 2 month f/u MEDICATIONS Medication SIG (Take, Route, Frequency, Duration) Notes Start Date End Date Status Omeprazole 20 MG 1 capsule 30 minutes before morning meal Orally Once a day Active Amoxicillin 500 MG [address] ee times a day for 10 days 01/22/2024 Active Ventolin HFA 108 (90 Base) MCG/ACT 1 puff as needed Inhalation every 4 hrs 02/04/2022 Active Encounters Encounter Location Date Provider Diagnosis Mahendra Delacruz DO, FACP [address] [place] [address] [phone] 01/26/2024 Mahendra Delacruz PLAN OF TREATMENT Next Appt Details Provider Name:Mahendra elizabeth, 04/02/2024 11:00:00 AM, [address] [place] [address], [phone],
--- OUTSIDE RECORDS SUMMARY | 2024-02-28 12:10 | XMS_ITS ---
Author Organization [facility] Address [address] [place] [address] [phone] Care Team Providers Care [employer] Vice Principal Name Role Phone Mahendra Delacruz Primary Care Provider REASON FOR VISIT Trouble Exercising Encounters Encounter Location Date Provider Diagnosis [facility]ac[facility] DO, [facility] [address] [place] [address] [phone] 02/23/2024 Mahendra Delacruz PLAN OF TREATMENT Next Appt Details Provider Name:Mahendra elizabeth, 04/02/2024 11:00:00 AM, [address] [place] [address], [phone],
--- OUTSIDE RECORDS SUMMARY | 2024-02-28 12:10 | XMS_ITS ---
Author Organization Mahendra Delacruz DO [facility] Address [address] [place] [address] [phone] Care Team Providers Care Mineral Ore Processing Labourer Name Role Phone Mahendra Delacruz Primary Care Provider REASON FOR VISIT Message MEDICATIONS Medication SIG (Take, Route, Fr equency, Duration) Notes Start Date End Date Status Amoxicillin 500 MG [address] ee times a day for 10 days 01/22/2024 Active Encounters Encounter Location Date Provider Diagnosis Mahendra Delacruz DO, [address] [phone] 01/22/2024 Mahendra Delacruz PLAN OF TREATMENT Medication Medication Name Sig Start Date Stop Date Notes Amoxicillin 500 MG [address] ee times a day for 10 days 01/22/2024 Next Appt Details Provider Name:Mahendra elizabeth, 04/02/2024 11:00:00 AM, [address] [place] [address], [phone],
--- OUTSIDE RECORDS SUMMARY | 2024-02-28 12:10 | XMS_ITS | Patient Health Record ---
Author Organization Mahendra Delacruz DO, [facility] Address [address] [place] [phone] Care Team Providers Care City Engineer Name Role Phone Mahendra Delacruz Primary Care Provider ALLERGIES Allergen (clinical drug ingredient) Drug/Non Drug Allergy documented on EMR Reaction Allergy Type Onset Date Status citalopram Citalopram Hydrobromide nausea, diarrhea, headache Drug Allergy Active bupropion BuPROPion HCl headache Drug Allergy Act enrrique Tetanus-Diphtheria Toxoids Td questionable reaction Drug Allergy Active erythromycin Erythromycin questionable reaction Drug Allergy Active RESULTS Component Value Reference Range Notes FL upper GI w air w Ba Swall ow Reviewed date:04/26/2023 11:10:37 AM Interpretation:Abnormal Performing Lab: Notes/Report: [address] [address] Fluoroscopy Report Signed Patient: Leif Tompkins MR#: [id number] 27 : 1990 Acct:[id number] Age/Sex: 32 / M ADM Date: 04/25/23 Loc: [facility].[place] Attending Dr: Mahendra Delacruz DO Ordering Physician: Mahendra Delacruz DO Date of Service: 04/25/23 Procedure(s): FL upper GI w air w Ba Swallow Accession Number(s): [id number] cc: Mahendra Delacruz DO EXAMINATION: XR FLUOROSCOPY UPPER GI WITH AIR CLINICAL INFORMATION: Dyspepsia COMPARISON: 11/14/2016 barium swallow. TECHNIQUE: Fluoroscopic air contrast upper GI examination was performed utilizing standard techniques with thin and thick barium and effervescent granules. Numerous spot images were obtained. FINDINGS: Lateral cine images of the oropharynx and hypopharynx demonstrate normal swallow mechanism with normal epiglottic inversion and soft palate elevation. No tracheal penetration, glottic or subglottic aspiration identified. No nasopharyngeal reflux present. Hypopharyngeal structures appear normal without evidence of mass or diverticulum. There was no significant cricopharyngeal achalasia. Dual and single contrast images of the esophagus demonstrate normal caliber, contour, and mucosal pattern. No evidence of stricture, mass, or ulcerations identified. Esophageal peristalsis was normal. No evidence of hiatus hernia identified. Gastroesophageal reflux is seen up to the midesophagus. Dual contrast and single contrast images of the stomach demonstrated somewhat poor coating of the lesser curvature and superior wall. Otherwise stomach demonstrates normal contour and mucosal pattern without evidence of mass, ulceration, or other abnormality. Contrast freely passed into the gastric antrum and duodenal bulb without delay. Single and air-contrast images of the duodenal bulb demonstrate no abnormality. The duodenal sweep has a normal appearance, course, and mucosal fold appearance. No malrotation. The imaged proximal jejunum has a normal fold pattern and caliber. FLUOROSCOPY TIME: 3 minutes 39 seconds Number of Spot Images: 7 Number of Cine: 9 DOSE AREA PRODUCT: 3607 uGy-m2 (microgray-meter squared) FL/FL upper GI w air w Ba Swallow IMPRESSION: 1. Moderate gastroesophageal reflux. 2. Otherwise normal examination. This procedure was performed by Joshua Delgado PA-C, and supervised by Dr. Woo Dictated By: Beto Woo MD Signed By: <Electronically signed by Beto Woo MD in OV> 04/26/23 0818 DD/ 0945 TD/TT: Foot Piece Assembler: Urinalysis and Microscopic Reviewed date:11/03/2023 04:27:31 PM Interpretation:Negative Performing Lab:[facility], [address] [place] [phone] Notes/Report: Color Urine Yellow Appearance Urine Clear PH 7.0 5.0-9.0 Glucose Urine UA Negative Negative mg/dL Urine Blood Negative Negative Specific [place] - Urine 1.015 1.005-1.025 Urine Protein Negative Neg-Trace mg/dL Urine Ketones Negative Negative mg/dL Nitrite Urine Negative Negative Leukocyte Esterase Urine Negative Negative RBC Urine 0-2 0-2 /HPF WBC Urine 0-5 0-5 /HPF Squamous Epithelial Cell Urine 0-2 0-2 /HPF Bacteria Urine None Seen None Seen Hyaline Casts Urine 0-2 0-2 /LPF Liver Panel Reviewed date:11/03/2023 11:28:01 PM Interpretation:Normal Performing Lab:[facility], [address] [place] [phone] Notes/Report: Bilirubin Total 0.4 0.0-1.0 mg/dL Bilirubin Direct 0.2 0.0-0.5 mg/dL Aspartate Amino Transferase 21 5-37 U/L Alanine Aminotransferase 37 0-40 U/L Total Protein 7.4 6.5-8.0 g/dL Albumin Level 4.1 3.5-5.0 g/dL Alkaline Phosphatase 116 39-117 U/L Basic Metabolic Panel Fastin g Reviewed date:11/03/2023 11:28:01 PM Interpretation:Normal Performing Lab:[facility], [address] [place] [phone] Notes/Report: Sodium 140 135-145 mmol/L Potassium 4.1 3.3-5.1 mmol/L Chloride 109 96-108 mmol/L Carbon Dioxide 23 22-29 mmol/L Anion Gap 12 12-20 Blood Urea Nitrogen 9 9-16 mg/dL Creatinine 0.82 0.5-1.4 mg/dL Estimated Glomerular Filt Rate > 60 NOTE: For -Algerian individuals, multiply the result by 1.210. Chronic Kidney Disease: Estimated GFR < 60 mL/min/1.73m2 Severe Kidney Disease: Estimated GFR < 15 mL/min/1.73m2 Glucose Fasting 86 60-99 mg/dL Calcium 9.3 8.4-10.2 mg/dL C Reactive Protein Reviewed date:11/03/2023 11:28:01 PM Interpretation:Abnormal Performing Lab:[facility], [address] [place] [phone] Notes/Report: C Reactive Protein 0.70 < or = 0.50 mg/dL Lipid Panel Reviewed date:11/03/2023 11:28:01 PM Interpretation:Abnormal Performing Lab:[address] [address] Notes/Report: Triglycerides 76 <150 mg/dL Desirable Triglyceride: less than 150 mg/dL Borderline High Triglyceride 150-199 mg/dL High Triglyceride: 200-499 mg/dL Very High Triglyceride: greater than or equal to 5OO mg/dL Cholesterol 194 <200 mg/dL Desirable Cholesterol: less than 200 mg/dL Borderline High Cholesterol: 200-239 mg/dL High Cholesterol: greater than 239 mg/dL LDL Cholesterol Calculated 132 <100 mg/dL Desirable LDL: less than 100 mg/dL Near Optimal/Above Optimal LDL: 110-129 mg/dL Borderline High LDL: 130-159 mg/dL High LDL: 160-189 mg/dL Very High LDL: greater than or equal to 190 mg/dL HDL Cholesterol 47 >40 mg/dL Desirable HDL: greater than 40 mg/dL Note: This HDL assay may give artificially low results in patients with liver disease. Complete Blood Count Auto Di ff Reviewed date:11/03/2023 04:18:50 PM Interpretation:Normal Performing Lab:[facility], [address] [place] [phone] Notes/Report: White Blood Count 7.6 4.8-10.8 X10*3/uL Red Blood Count 5.42 4.60-5.80 X10*6/uL Hemoglobin 15.5 14.0-18.0 g/dl Hematocrit 45.9 42.0-52.0 % Mean Corpuscular Volume 84.7 80.0-98.0 fL Mean Corpuscular Hemoglobin 28.6 27.0-33.0 pg Mean Corpuscular HGB Conc 33.8 31.0-36.0 g/dl Red Cell Distribution Width 12.9 11.0-16.0 % Platelet Count 279 160-400 X10*3/uL Mean Platelet Volume 12.5 9.4-12.4 fL Neutrophils Percent Auto 72.4 45-73 % Imm Gran Pct Auto 0.8 0.0-0.4 % Lymphocytes Percent Auto 18.6 20-40 % Monocytes Percent Auto 6.9 2-11 % Eosinophils Percent Auto 0.8 0-4 % Basophils Percent Auto 0.5 0-2 % NRBC Pct Auto 0.0 0.0-0.2 /100WBC Neutrophils Absolute Auto 5.5 2.0-8.3 x10*3/u L Imm Gran Abs Auto 0.06 0.00-0.03 X10*3/uL Lymphocytes Absolute Auto 1.4 1.2-4.9 X10*3/u L Monocytes Absolute Auto 0.5 0.1-1.2 X10*3/uL Eosinophils Absolute Auto 0.1 0.0-0.4 X10*3/u L Basophils Absolute Auto 0.0 0.0-0.2 X10*3/uL NRBC Abs Auto 0.000 0.0-0.012 X10*3/uL Erythrocyte Sedimentation Ra te Reviewed date:11/03/2023 11:28:01 PM Interpretation:Normal Performing Lab:[facility], [address] [place] [phone] Notes/Report: Erythrocyte Sedimentation Rate 9 0-15 MM/HR Patients with polycythemia and many hemoglobin abnormalities may have depressed sed rates whereas patients with anemia may have elevated sed rates. Thyroid Stimulating Hormone Reviewed date:11/03/2023 11:28:01 PM Interpretation:Normal Performing Lab:[facility], [address] [place] [phone] Notes/Report: Thyroid Stimulating Hormone 1.32 0.32-4.0 uIU/ mL TSH 3rd Generation ([facility]) Complete Blood Count Auto Di ff Reviewed date:02/25/2024 06:42:03 PM Interpretation:Normal Performing Lab:[facility], [address] [place] [phone] Notes/Report: White Blood Count 10.7 4.8-10.8 X10*3/uL Red Blood Count 5.39 4.60-5.80 X10*6/uL Hemoglobin 15.5 14.0-18.0 g/dl Hematocrit 45.9 42.0-52.0 % Mean Corpuscular Volume 85.2 80.0-98.0 fL Mean Corpuscular Hemoglobin 28.8 27.0-33.0 pg Mean Corpuscular HGB Conc 33.8 31.0-36.0 g/dl Red Cell Distribution Width 12.5 11.0-16.0 % Platelet Count 294 160-400 X10*3/uL Mean Platelet Volume 11.3 9.4-12.4 fL Neutrophils Percent Auto 66.7 45-73 % Imm Gran Pct Auto 0.8 0.0-0.4 % Lymphocytes Percent Auto 22.5 20-40 % Monocytes Percent Auto 8.3 2-11 % Eosinophils Percent Auto 0.9 0-4 % Basophils Percent Auto 0.8 0-2 % NRBC Pct Auto 0.0 0.0-0.2 /100WBC Neutrophils Absolute Auto 7.1 2.0-8.3 x10*3/u L Imm Gran Abs Auto 0.08 0.00-0.03 X10*3/uL Lymphocytes Absolute Auto 2.4 1.2-4.9 X10*3/u L Monocytes Absolute Auto 0.9 0.1-1.2 X10*3/uL Eosinophils Absolute Auto 0.1 0.0-0.4 X10*3/u L Basophils Absolute Auto 0.1 0.0-0.2 X10*3/uL NRBC Abs Auto 0.000 0.0-0.012 X10*3/uL Prothrombin Time INR Reviewed date:02/25/2024 06:42:03 PM Interpretation:Normal Performing Lab:[address] [phone] Notes/Report: Prothrombin Time 10.9 10.9-12.4 SEC INTERNATIONAL NORM RATIO 0.9 0.9-1.1 INTERNATIONAL NORMALIZED RATIO (INR) REFERENCE RANGES Reference Range For patients not on anticoagulant therapy: 0.9 - 1.1 INR ranges for oral anticoagulant therapy: For prevention and treatment of venous thrombosis and pulmonary embolism: 2.0 - 3.0 For acute myocardial infarction with aspirin therapy: 2.0 - 3.0 For acute myocardial infarction without aspirin therapy: 3.0 - 4.0 For patients with mechanical prosthetic heart valves: 2.5 - 3.5 Liver Panel Reviewed date:02/25/2024 06:42:53 PM Interpretation:Abnormal Performing Lab:[facility], [address] [place] [phone] Notes/Report: Bilirubin Total 0.3 0.0-1.0 mg/dL Bilirubin Direct 0.1 0.0-0.5 mg/dL Aspartate Amino Transferase 29 5-37 U/L Alanine Aminotransferase 51 0-40 U/L Total Protein 7.8 6.5-8.0 g/dL Albumin Level 4.3 3.5-5.0 g/dL Alkaline Phosphatase 112 39-117 U/L Basic Metabolic Panel Reviewed date:02/25/2024 06:42:03 PM Interpretation:Normal Performing Lab:[address] [address] Notes/Report: Sodium 139 135-145 mmol/L Potassium 3.8 3.3-5.1 mmol/L Chloride 104 96-108 mmol/L Carbon Dioxide 25 22-29 mmol/L Anion Gap 14 12-20 Blood Urea Nitrogen 10 9-16 mg/dL Creatinine 0.85 0.5-1.4 mg/dL Creatinine Clr Calc Pharmacy 188.5 eGFR (calculated from the MDRD study equation) and eCrCl (calculated from the Cockcroft-Gault equation) are based on different parameters and may not yield comparable results. If eCrCl result is absurd, please check patient's height/weight. Estimated Glomerular Filt Rate > 60 Chronic Kidney Disease: Estimated GFR < 60 mL/min/1.73m2 Severe Kidney Disease: Estimated GFR < 15 mL/min/1.73m2 Glucose Random 87 60-115 mg/dL Calcium 9.4 8.4-10.2 mg/dL Magnesium Reviewed date:02/25/2024 06:42:03 PM Interpretation:Normal Performing Lab:[address] [phone] Notes/Report: Magnesium 2.1 1.6-2.6 mg/dL Troponin-I High Sensitivity Reviewed date:02/25/2024 06:42:03 PM Interpretation:Normal Performing Lab:[address] [address] Notes/Report: Troponin-I High Sensitivity < 2.7 <3.5-35.0 ng/ L [facility] high sensitivity Troponin-I results should be used in conjunction with other diagnostic information such as ECG, clinical observations and information, and patient symptoms to aid in the diagnosis of WI. TSH reflex Free T4 Reviewed date:02/25/2024 06:42:03 PM Interpretation:Normal Performing Lab:[address] [address] Notes/Report: TSH reflex Free T4 2.18 0.32-4.0 uIU/mL D Dimer High Sensitivity Reviewed date:02/25/2024 07:51:44 PM Interpretation:Normal Performing Lab:[address] [address] Notes/Report: D Dimer High Sensitivity < 150 D-DIMER HS REFERENCE RANGE Note: Our assay reports D-Dimer Units (D-DU). The cut-off value for venous thromboembolic (VTE) disease is 230 ng/mL. This value has a very high negative predictive value when the patient has a low to moderate clinical probability of VTE. The upper limit of normal is 243 ng/mL. XR chest 2V Reviewed date:02/25/2024 07:52:35 PM Interpretation:Nonacute Performing Lab: Notes/Report: [address] [address] XRay Report Signed Patient: Leif Tompkins MR#: [id number] [birth year] : 1990 Acct:[id number] Age/Sex: 33 / M ADM Date: 02/25/24 Loc: .ED Attending Dr: Ordering Physician: Verna Albright NP Date of Service: 02/25/24 Procedure(s): XR chest 2V Accession Number(s): [id number] cc: Mahendra Delacruz DO; Verna Albright NP EXAMINATION: XR CHEST CLINICAL INFORMATION: palpitations COMPARISON: 02/04/2017 TECHNIQUE: 2 views of the chest were obtained. FINDINGS: There is marked biconvex thoracolumbar scoliosis, otherwise, no significant abnormality is noted involving the heart, lungs, mediastinum, bony thorax or soft tissues. No interval change when compared to 2017 XR/XR chest 2V IMPRESSION: No acute intrathoracic disease. Marked scoliosis. Electronically signed by: Hudson Vasquez MD 02/25/2024 07:02 PM [facility] Dictated By: Hudson Vasquez MD Signed By: <Electronically signed by Hudson Vasquez MD in OV> 02/25/24 1902 DD/ 1816 TD/TT: 02/25/24 1821 Foot Piece Assembler: KAI REASON FOR REFERRAL Reason GERD Abdominal bloat ing Diagnosis 1 Gastroesophageal ref lux disease, esophagitis presence not specified (K21.9) Referral Organization Mahendra Hughes, FACP Referring Provider First Name Mahendra Referring Provider Last Name Nubia Referring Provider Speciality Internal M edicine Referred Provider Mahendra Montoya Referred Provider Specialty Gastroentero logy General Notes Noy Tsai 024 03:19:06 PM EST > PLEASE REVIEW FOR EXPEDITED APPOINTMENT. THANKS VERY MUCH!, Noy Tsai 05/05/2023 03:48:39 PM EST > referral faxed; patient notified. Referral Priority Routine Referral Appointment Date 08/25/2023 Reason Morbid obesity/snori ng/apneic episodes Diagnosis 1 Morbid obesity (E66. 01) Referral Organization Mahendra Hughes FACOpal Referring Provider First Name Mahendra Referring Provider Last Name Nubia Referring Provider Speciality Internal M edicine Referred Provider Martínez Garcia Referred Provider Specialty Pulmonary Di seases General Notes Fara Sailnas 02:23:35 PM EDT > Referral sent prior to scheduling that office will call patient. Referral Priority Routine Referral Appointment Date 01/10/2024 MEDICATIONS Medication SIG (Take, Route, Frequency, Duration) Notes Start Date End Date Status Omeprazole 20 MG 1 capsule 30 minutes before morning meal Orally Once a day Active Ventolin HFA 108 (90 Base) MCG/ACT INHALE ONE PUFF BY MOUTH EVERY 4 HOURS NEEDED for 30 Active Amoxicillin 500 MG [address] ee times a day for 10 days 01/22/2024 Active IMMUNIZATIONS Vaccine Route Administration Date Status Comme nts Hepatitis B (11-19) Unknown 08/01/1995 Administered DT Unknown 03/03/1992 Administered DT Unknown 1991 Administered Varicella Unknown 06/28/1995 Administered Hib 4 dose schedule Unknown 1991 Administered DT Unknown 1991 Administered MMR Unknown 06/28/1995 Administered Hepatitis B (11-19) Unknown 06/28/1995 Administered Hib 4 dose schedule Unknown 1991 Administered Hib 4 dose schedule Unknown 03/03/1992 Administered Hib 4 dose schedule Unknown 09/29/1992 Administered DT Unknown 07/05/1996 Administered DT Unknown 02/09/1993 Administered MMR Unknown 09/29/1992 Administered Hepatitis B (-) Unknown 01/03/1996 Administered Influenza Unknown 03/03/2015 Refused Influenza Quad Unknown 11/29/2016 Refused SOCIAL HISTORY Tobacco Use: Social History Observation Description Date Details (start date - stop date) Former Smoker NA - NA Sex Assigned At : Social History Observation Description Sex Assigned At Unknown Tobacco Use/Smoking Question Answer Notes Patient is a former smoker How long has it been since y ou last smoked? 5-10 years Additional Findings: Tobacco Non-User Fo rmer smoker, currently using no form of tobacco Alcohol Screen Question Answer Notes Did you have a drink contain ing alcohol in the past year? Yes How often did you have a dri nk containing alcohol in the past year? 2 to 4 times a month (2 points) How many drinks did you have on a typical day when you were drinking in the past year? 1 or 2 drinks (0 point) How often did you have 6 or more drinks on one occasion in the past year? Never (0 point) Points 2 Interpretation Negative PROBLEMS Problem Type ICD Code Onset Dates Problem Status W/U Status Risk SNOMED Code Notes Problem Vitamin D deficiency (E55.9) Active confirmed 40140206 Problem Sternal pain (R07.89) Active confirmed 392490325 Problem Candidal esophagitis (B37.81) Active confirmed 00323961 Problem Chronic tension-type headache, not intractable (G44.229) Active confirmed 104561261 Problem Acute prostatitis (N41.0) Active confirmed 50897510 Problem Gross hematuria (R31.0) Active confirmed 810394630 Problem Mild intermittent asthma without complication (J45.20) Active confirmed 532967612 Problem Mild persistent asth ma without complication (J45.30) Active confirmed 295580407 Problem Laceration (T14.8) Active confirmed 312 087661 Problem Obstructive sleep ap cely (G47.33) Active confirmed 13761605 Problem Anxiety associated w ith depression (F41.8) Active confirmed 996498214 Problem Posterior vitreous detachment of both eyes (H43.813) Active confirmed 401515975 Problem Gastroesophageal ref lux disease, esophagitis presence not specified (K21.9) Active confirmed 627289457 Problem Seasonal allergic rhinitis due to pollen (J30.1) Active confirmed 41607878 Problem Hypercholesterolemia (E78.00) Active confirmed 19821484 Problem Chest pain, unspecif ied type (R07.9) Active confirmed 53789964 Problem Near syncope (R55) Active confirmed 427 688066 Problem Morbid obesity (E66.01) Active confirmed 193600165 Problem PVCs (premature ventricular contractions) (I49.3) Active confirmed 48369302 VITAL SIGNS Blood pressure diastolic 74 mm Hg 11/21/2023 Height 69.25 in 11/21/2023 Blood pressure systolic 136 mm Hg 11/21/2023 Weight 347 lbs 11/21/2023 BMI 50.87 kg/m2 11/21/2023 Encounters Encounter Location Date Provider Diagnosis Mahendra Delacruz DO, [address] [id number] 08/02/2023 Mahendra Delacruz DO, [address] [id number] 11/15/2023 Mahendra Delacruz DO, [address] [id number] 11/21/2023 Mahendra Delacruz Morbid obesity E66.0 1 and Gastroesophageal reflux disease, esophagitis presence not specified K21.9 Mahendra Delacruz DO, [address] [id number] 03/10/2023 Mahendra Delacruz DO, [address] [id number] 06/12/2023 Mahendra Delacruz DO, [address] [id number] 07/31/2023 Mahendra Delacruz DO, [address] [id number] 09/26/2023 Mahendra Delacruz Gastroesophageal ref lux disease, esophagitis presence not specified K21.9 Mahendra Delacruz DO, [address] [id number] 10/30/2023 Mahendra Delacruz Anxiety associated w ith depression F41.8 ; Hypercholesterolemia E78.00 and Gastroesophageal reflux disease, esophagitis presence not specified K21.9 Mahendra Delacruz DO, [address] [id number] 01/22/2024 Mahendra Delacruz DO, [address] [id number] 03/24/2023 Mahendra Delacruz Dyspepsia R10.13 Mahendra Delacruz DO, [address] [id number] 05/05/2023 Mahendra Delacruz Gastroesophageal ref lux disease, esophagitis presence not specified K21.9 Mahendra Delacruz DO, [address] [id number] 01/26/2024 Mahendra Delacruz DO, [address] [id number] 02/23/2024 Mahendra Delacruz ASSESSMENTS Encounter Date Diagnosis Assessment Notes Treatment Notes Treatment Clinical Notes 11/21/2023 Gastroesophageal ref lux disease, esophagitis presence not specified (ICD-10 - K21.9) 11/21/2023 Morbid obesity (ICD- 10 - E66.01) 09/26/2023 Gastroesophageal ref lux disease, esophagitis presence not specified (ICD-10 - K21.9) 10/30/2023 Anxiety associated w ith depression (ICD-10 - F41.8) 10/30/2023 Hypercholesterolemia (ICD-10 - E78.00) 03/24/2023 Dyspepsia (ICD-10 - R10.13) 05/05/2023 Gastroesophageal ref lux disease, esophagitis presence not specified (ICD-10 - K21.9) 10/30/2023 Gastroesophageal ref lux disease, esophagitis presence not specified (ICD-10 - K21.9) PLAN OF TREATMENT Pending Test Test Name Order Date VITAMIN D 25-OH TOTAL 10/22/2021 Next Appt Details Provider Name:Mahendra elizabeth, 04/02/2024 11:00:00 AM, [address] [place] [address], [place], [place], [phone], Insurance Providers Payer Name Payer Address Payer Phone Subscriber Number Group Number Insured Name Patient Relationship to Insured Coverage Start Date Coverage End Date [facility] [employer]/ANATOLIY EGAN [address] [address] [place] [address] [id number] Leif Tompkins Self - patient is the insured [facility] [address] [place], [place] [id number] Leif Tompkins Self - patient is the insured MEDICAL (GENERAL) HISTORY Medical History History ICD Code anxiety depression scoliosis Chest pain, unspecified type Mild persistent asthma without complicat ion Seasonal allergic rhinitis due to pollen J30.1 Candidal esophagitis Non-recurrent acute serous otitis media of right ear H65.01 PVCs (premature ventricular contractions ) I49.3 Surgical History Surgery Date(Month/Year) myringotomy AU
--- OUTSIDE RECORDS SUMMARY | 2024-02-28 12:11 | XMS_ITS | Patient Health Record ---
Author Organization [facility] Address [address] [place] [phone] Care Team Providers Care Maintenance Worker Swimming Pool Name Role Phone Mahendra Delacruz DO Primary Care Provider Unavail able Mahendra Montoya Unavailable [phone] REASON FOR REFERRAL No Information SOCIAL HISTORY Sex Assigned At : Social History Observation Description Sex Assigned At Unknown Encounters Encounter Location Date Provider Diagnosis [facility] [address] [place] [phone] 08/25/2023 Mahendra Montoya [facility] [address] [place] [phone] 07/25/2023 Mahendra Montoya [facility] [address] [place] [phone] 07/25/2023 Mahendra Montoya PLAN OF TREATMENT No Information
--- OUTSIDE RECORDS SUMMARY | 2024-02-28 12:11 | XMS_ITS ---
Author Organization [facility] Address [address] [place] [phone] Care Team Providers Care Cardiovascular Sonographer Name Role Phone Mahendra Delacruz DO Primary Care Provider Unavail able Mahendra Montoya Unavailable [phone] REASON FOR VISIT Patient presents today for GERD,BLOATING Encounters Encounter Location Date Provider Diagnosis [facility] [address] [place] [phone] 08/25/2023 Mahendra Montoya PLAN OF TREATMENT No Information
--- OUTSIDE RECORDS SUMMARY | 2024-02-28 12:11 | XMS_ITS ---
Author Organization [facility] Address [address] [place] [address] Care Team Providers Care Window Air Conditioner Installer Name Role Phone Mahendra Delacruz DO Primary Care Provider Unavail able Mahendra Montoya Unavailable [phone] REASON FOR VISIT new insurance? Encounters Encounter Location Date Provider Diagnosis [facility] [address] [place] [phone] 07/25/2023 Mahendra Montoya PLAN OF TREATMENT No Information
--- OUTSIDE RECORDS SUMMARY | 2024-02-28 12:11 | XMS_ITS ---
Author Organization [facility] Address [address] [place] [phone] Care Team Providers Care Research Biologist Name Role Phone Mahendra Delacruz DO Primary Care Provider Unavail able Mahendra Montoya Unavailable [phone] REASON FOR VISIT cancel appt Encounters Encounter Location Date Provider Diagnosis [facility] [address] [place] [phone] 07/25/2023 Mahendra Montoya PLAN OF TREATMENT No Information
== END 2024-02-25 20:04 | disposition home or self-care (01) ==
PROVIDERS: Nurse Practitioner Family; Physician Assistant; Emergency Provider Emergency Medicine; PCP Internal Medicine
DX: R00.0 Tachycardia, unspecified (principal); I49.9 Cardiac arrhythmia, unspecified; R00.2 Palpitations; Z87.891 Personal history of nicotine dependence; Z79.899 Other long term (current) drug therapy
CPT/HCPCS: 36415; 71046; 80048; 80076; 83735; 84443; 84484; 85025; 85379; 85610; 93005; 96360; 96361; 99284

== ENCOUNTER → 2024-02-25 17:04 | Outpatient (BNV) | payer OTHER, SELFPAY | PROVIDERS: Emergency Provider Emergency Medicine; PCP Internal Medicine; Visit Provider Internal Medicine Cardiovascular Disease | DX: R00.0 Tachycardia, unspecified (principal) | CPT/HCPCS: 93010 ==

== ENCOUNTER 2024-02-27 10:35 | Outpatient (AMB) | payer OTHER, SELFPAY ==
--- NOTE | 2024-02-27 10:39 | AM.OFFVISNUR ---
Intake Visit Reasons: ekg, rapid HR Allergies diphtheria, pertussis, tetanus vacc [Diphther,Pertuss,Tetanus Vac] Allergy (Unknown, Verified 02/25/24 17:12) UNKNOWN erythromycin base [ERYTHROMYCIN BASE] Allergy (Unknown, Verified 02/25/24 17:12) UNKNOWN DPT vac Allergy (Unknown, Uncoded 11/14/22 13:16) rash Erythromycin Allergy (Unknown, Uncoded 11/14/22 13:16) rash Nursing Note pt is here for nurse visit with ekg pt complains of frequent palpitations ekg reviewed by provider ordering 2 day holter monitor Office Procedures EKG [id number], Complete
== END 2024-02-27 10:55 | disposition home or self-care (01) ==
PROVIDERS: PCP Internal Medicine; Visit Provider Internal Medicine Cardiovascular Disease
DX: R00.0 Tachycardia, unspecified (principal)
CPT/HCPCS: 93010

== ENCOUNTER → 2024-02-27 10:35 | Outpatient (BNVA) | payer OTHER, SELFPAY | PROVIDERS: PCP Internal Medicine; Visit Provider Internal Medicine Cardiovascular Disease | DX: R00.2 Palpitations (principal) | CPT/HCPCS: 93005 ==

== ENCOUNTER → 2024-03-04 11:26 | Outpatient (REF) | payer OTHER, SELFPAY | LOC: HO.CARD 11:26 | PROVIDERS: PCP Internal Medicine; Visit Provider Internal Medicine Cardiovascular Disease | DX: I49.3 Ventricular premature depolarization (principal); R00.2 Palpitations | CPT/HCPCS: 93225 ==

== ENCOUNTER → 2024-03-04 11:29 | Outpatient (BNV) | payer OTHER, SELFPAY | PROVIDERS: PCP Internal Medicine; Visit Provider Internal Medicine Cardiovascular Disease | DX: R00.0 Tachycardia, unspecified (principal) | CPT/HCPCS: 93227 ==

== ENCOUNTER 2024-04-18 13:11 | Outpatient (AMB) | payer OTHER, SELFPAY ==
[2024-04-18 13:17] VITALS: BP 142/92; PULSE 93; O2SAT 96; BMI 48.7
--- NOTE | 2024-04-18 13:17 | MHC.OFFVIS ---
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 Patient states that he has had prior sleep apnea workup in 2017 which was negative, however the time his weight was significantly lower. He is interested in further sleep apnea workup. After the last office visit patient had sleep study that showed sleep apnea with AHI of 25. He has not received his CPAP machine yet. Patient does have underlying asthma for which he is albuterol MDI, he can not tolerate inhaled or systemic steroids secondary to them causing significant tachycardia with resting rate up to 130s-140s. [facility] Medical History (Updated 04/18/24 @ 13:40 by Martínez Garcia MD) Sinus tachycardia Palpitation Surgical History No pertinent past surgical history Family History Father No problems noted. Mother No problems noted. Social History Alcohol intake: current Alcohol intake frequency: a few times a month Patient Tobacco Use Status: Former Tobacco user Tobacco use type: Cigarette Years Smoked: 10 +/- , started at age 15, quit 2014, 2PPD Review of Systems Const Denies daytime sleepiness, Denies excessive sweating, Denies fatigue, Denies fever(s), Denies lethargy, Denies malaise, Denies night sweats, Denies snoring and Denies weight loss Eyes Denies blurry vision and Denies itchy eyes ENT Denies nasal congestion, Denies post nasal drip, Denies sinus pain, Denies sinus pressure and Denies other ( Thrush) Card Denies chest pain, Denies pedal edema, Denies dyspnea, Denies orthopnea and Denies paroxysmal nocturnal dyspnea Resp Denies cough, Denies hemoptysis, Denies excessive phlegm production, Denies dyspnea, Denies snoring and Denies wheezing GI Denies abdominal pain and Denies heartburn Musc Denies myalgias, Denies arthralgias and Denies joint swelling Skin/Breast Denies rash Neuro Denies memory loss and Denies seizure-like activity Psych Denies abnormal sleep pattern, Denies anxiety and Denies memory loss Endo Denies excessive sweating, Denies fatigue and Denies heat intolerance Neel/Lymph Denies easy bruising Aller/Immun Denies itchy eyes, Denies seasonal rhinorrhea and Denies wheezing Physical Exam Vital Signs: Last Vital Signs Pulse 93 04/18/24 13:17 BP 142/92 H 04/18/24 13:17 Pulse Ox 96 04/18/24 13:17 Oxygen Delivery Method Room Air 04/18/24 13:17 BMI result Body Mass Index 48.7 Const General: no acute distress and alert Nutritional Appearance: not obese Orientation/consciousness: Other orientation findings ( oriented) HEENT Head: Yes atraumatic Eyes General: appearance normal, both eyes and all related structures Sclerae: sclerae normal EOM: EOMs intact bilaterally Neck Neck: Yes supple Lymphatic: no lymphadenopathy noted Resp Effort & Inspection: normal respiratory effort and no use of accessory muscles Auscultation: rales bilateral Cardio Rate: regular rate Rhythm: regular rhythm Heart sounds: no gallops, no murmurs and no rubs Skin General skin exam: other ( warm) Extrem General: No clubbing, No cyanosis and No edema Assessment & Plan Assessment & Plan (1) MAYCOL (obstructive sleep apnea): Code(s): G47.33 - Obstructive sleep apnea (adult) (pediatric) Category: Medical Plan: Results of sleep study reviewed, underlying moderate obstructive sleep apnea with AHI of 25. APAP of 6-16 cm of water ordered. (2) Asthma: Code(s): J45.909 - Unspecified asthma, uncomplicated Category: Medical Plan: Patient unable to tolerate systemic or inhaled glucocorticoid secondary to significant tachycardia. Continue as needed albuterol MDI. Coding Level of Care Code Est Pt Level 4 (77935) Diagnoses MAYCOL (obstructive sleep apnea) G47.33 Asthma J45.909
--- OUTSIDE RECORDS SUMMARY | 2024-04-18 17:01 | XMS_ITS ---
Author Organization Mahendra Delacruz DO, FACP Address [address] [place] [phone] Care Team Providers Care Servicer Travel Trailers Name Role Phone Mahnedra Delacruz Primary Care Provider [phone] Encounters Encounter Location Date Provider Diagnosis Mahendra Delacruz DO, [facility] [address] [place] [phone] 04/02/2024 Mahendra Delacruz PLAN OF TREATMENT No Information
--- OUTSIDE RECORDS SUMMARY | 2024-04-18 17:01 | XMS_ITS ---
Author Organization [facility] Address [address] [place] [phone] Care Team Providers Care Mason Tender Restoration Labor Name Role Phone Nubia (RETIRED) Mahendra REY Primary Care Provid er Unavailable Mahendra Montoya Unavailable [phone] REASON FOR VISIT new insurance? Encounters Encounter Location Date Provider Diagnosis [facility] [address] [place] [phone] 07/25/2023 Mahendra Montoya PLAN OF TREATMENT No Information
--- OUTSIDE RECORDS SUMMARY | 2024-04-18 17:01 | XMS_ITS | Patient Health Record ---
Author Organization [facility] Address [address] [place] [address] Care Team Providers Care Chain Mortiser Operator Name Role Phone Nubia (RETIRED) Mahendra REY Primary Care Provid er Unavailable Mahendra Montoya Unavailable [phone] REASON FOR REFERRAL No Information SOCIAL HISTORY Sex Assigned At : Social History Observation Description Sex Assigned At Unknown Encounters Encounter Location Date Provider Diagnosis [facility] [address] [place] [phone] 08/25/2023 Mahendra Montoya [facility] [address] [place] [phone] 07/25/2023 Mahendra Montoya [facility] [address] [place] [phone] 07/25/2023 Mahendra Montoya PLAN OF TREATMENT No Information
--- OUTSIDE RECORDS SUMMARY | 2024-04-18 17:01 | XMS_ITS ---
Author Organization Mahendra Delacruz DO, FACP Address [address] [place] [phone] Care Team Providers Care Book Jacket Cover Machine Operator Name Role Phone Mahendra Delacruz Primary Care Provider REASON FOR VISIT Trouble Exercising Encounters Encounter Location Date Provider Diagnosis Mahendra Delacruz DO, FACP [address] [place] [phone] 02/23/2024 Mahendra Delacruz PLAN OF TREATMENT No Information
--- OUTSIDE RECORDS SUMMARY | 2024-04-18 17:01 | XMS_ITS ---
Author Organization [facility] Address [address] [place] [phone] Care Team Providers Care Oriental Medicine Practitioner Name Role Phone Nubia (RETIRED) Mahendra REY Primary Care Provid er Unavailable Mahendra Montoya Unavailable [phone] REASON FOR VISIT cancel appt Encounters Encounter Location Date Provider Diagnosis [facility] [address] [place] [phone] 07/25/2023 Mahendra Montoya PLAN OF TREATMENT No Information
--- OUTSIDE RECORDS SUMMARY | 2024-04-18 17:02 | XMS_ITS ---
Author Organization Mahendra Delacruz DO, FACP Address [address] [place] [phone] Care Team Providers Care Rubber Goods Assembler Name Role Phone Mahendra Delacruz Primary Care Provider REASON FOR VISIT 2 month f/u MEDICATIONS [...] Date Provider Diagnosis Mahendra Delacruz DO, FACP [address] [place] [phone] 01/26/2024 Mahendra Delacruz PLAN OF TREATMENT No Information
--- OUTSIDE RECORDS SUMMARY | 2024-04-18 17:02 | XMS_ITS ---
Author Organization [facility] Address [address] [place] [phone] Care Team Providers Care Forensic Psychiatrist Name Role Phone Nubia (RETIRED) Mahendra RYE Primary Care Provid er Unavailable Mahendra Montoya Unavailable [phone] REASON FOR VISIT Patient presents today for GERD,BLOATING Encounters Encounter Location Date Provider Diagnosis [facility] [address] [place] [phone] 08/25/2023 Mahendra Montoya PLAN OF TREATMENT No Information
== END 2024-04-18 13:41 | disposition home or self-care (01) ==
PROVIDERS: PCP Internal Medicine; Visit Provider Internal Medicine Pulmonary Disease
DX: G47.33 Obstructive sleep apnea (adult) (pediatric) (principal); J45.909 Unspecified asthma, uncomplicated
CPT/HCPCS: 99214

== ENCOUNTER → 2024-04-18 13:11 | Outpatient (BNVA) | payer OTHER, SELFPAY | PROVIDERS: PCP Internal Medicine; Visit Provider Internal Medicine Pulmonary Disease | DX: I49.3 Ventricular premature depolarization (principal); J45.909 Unspecified asthma, uncomplicated; R00.2 Palpitations; G47.33 Obstructive sleep apnea (adult) (pediatric); R00.0 Tachycardia, unspecified; Z87.891 Personal history of nicotine dependence | CPT/HCPCS: 93005; 99212 ==

== ENCOUNTER 2024-04-18 14:12 | Outpatient (AMB) | payer OTHER, SELFPAY ==
[2024-04-18 14:32] VITALS: BP 130/90; PULSE 121; BMI 47.4
--- NOTE | 2024-04-18 14:32 | A.OFFVIS_ITS ---
Vital Signs 04/18/24 14:32 Height 5 ft 11 in Weight 340 lb BMI 47.4 BP 130/90 H Blood Pressure Location Lt brachial Position Sitting Pulse 121 H Pulse Source Monitor Intake Visit Reasons: follow-up holterc/o mult skipped beats increased Ticker Installer Required: No Accompanied by: Self / Same As Patient Allergies diphtheria, pertussis, tetanus vacc [Diphther,Pertuss,Tetanus Vac] Allergy (Unknown, Verified 04/18/24 13:20) UNKNOWN erythromycin base [ERYTHROMYCIN BASE] Allergy (Unknown, Verified 04/18/24 13:20) UNKNOWN DPT vac Allergy (Unknown, Uncoded 04/18/24 13:20) rash Erythromycin Allergy (Unknown, Uncoded 04/18/24 13:20) rash Medication List - Last Reconciled 04/18/24 by Daniel Cervantes NP albuterol sulfate 90 mcg/actuation (Ventolin HFA) 1 puff inhalation Q4H PRN albuterol sulfate 90 mcg/actuation 1 inh inhalation QID PRN dextromethorphan-guaifenesin 5-50 mg/5 mL (Robitussin Cough-Chest Congestion DM) 20 mL PO Q6H omeprazole 20 mg PO DAILY 90 days HPI Comments Details: This is a 33-year-old male patient presenting for a follow-up visit. He has a history of asthma, PVCs, sinus tachycardia, obesity, and obstructive sleep apnea. The patient was previously seen in the office for palpitations and underwent multiple Holter monitors, which showed isolated PVCs with mostly sinus rhythm and sinus tachycardia. Recently he has reported worsening symptoms of palpitations, prompting a new Holter monitor to be ordered. The patient describes being able to recognize when his heart rate is high, but notes that this sensation of his heart skipping or missed beats feels different now. He states that sometimes he feels like there is a fluttering feeling during these episodes. He reports that these episodes are more intense. States that they are not associated with squeezing chest pain sometimes before sometimes after the sensation, and he feels the need to jump out of his seat when they do occur. These episodes he notes can happen during exertion as well as at rest. He has observed that they occur both when his heart rate is in the normal range of 70s and when it is elevated in the 120s. The patient otherwise denies any associated symptoms of exertional chest pain, shortness of breath, dizziness, orthopnea, PND, leg edema, presyncope, or syncope. PFSH Medical History Sinus tachycardia Palpitation Surgical History No pertinent past surgical history Family History Father No problems noted. Mother No problems noted. Social History Alcohol intake: current Alcohol intake frequency: a few times a month Patient Tobacco Use Status: Former Tobacco user Tobacco use type: Cigarette Years Smoked: 10 +/- , started at age 15, quit 2014, 2PPD Review of Systems Const Denies chills, Denies fatigue, Denies fever(s), Denies frequent falls, Denies weakness, Denies weight gain and Denies weight loss ENT Denies dizziness Card Denies chest pain, Denies leg edema, Denies lightheadedness, Denies palpitations, Denies dyspnea and Denies dyspnea on exertion Resp Denies cough, Denies dyspnea and Denies dyspnea on exertion GI Denies hematochezia Musc Denies abnormal gait, Denies muscle weakness, Denies numbness, Denies radiating pain into limb and Denies tingling Neuro Denies abnormal gait, Denies dizziness, Denies frequent falls, Denies numbness, Denies tingling and Denies weakness Endo Denies fatigue and Denies palpitations Physical Exam Vital Signs: Last Vital Signs Pulse 121 H 04/18/24 14:32 BP 130/90 H 04/18/24 14:32 BMI result Body Mass Index 47.4 Const General: cooperative, healthy appearing, comfortable and no acute distress Orientation/consciousness: patient oriented x3 HEENT Head: Yes normal to inspection Neck Neck: Yes normal visual inspection, Yes trachea midline and Yes supple Chest Chest palpation & inspection: normal inspection of the chest Resp Effort & Inspection: normal respiratory effort Auscultation: clear to auscultation bilaterally, no crackles, no rales, no rhonchi and no wheezes Cardio Jugular venous distension: no JVD Palpation: normal PMI Rate: regular rate Rhythm: regular rhythm Heart sounds: S1 normal heart sound present, S2 normal heart sound present, no click, no gallops, no murmurs and no rubs Peripheral pulses: Peripheral pulses 2+ throughout GI Inspection: Yes normal to inspection Palpation (GI): Soft to palpation Auscultation: normal bowel sounds Skin General skin exam: no rashes or lesions noted Neuro General: patient oriented x3 Extrem General: Yes normal to inspection, No no pedal edema and No calf tenderness Psych Appearance: grossly normal Mental Status: mental status grossly normal Speech and movement: Normal speech and movement present Office Procedures EKG Details: EKG today showed underlying sinus tachycardia, rate 121 beats per minute, possible inferior infarct, [place], [place]. [id number]-[id number], Complete Assessment & Plan Assessment & Plan (1) PVC (premature ventricular contraction): Code(s): I49.3 - Ventricular premature depolarization Category: Medical (2) Palpitation: Code(s): R00.2 - Palpitations Category: Medical (3) Sinus tachycardia: Code(s): R00.0 - Tachycardia, unspecified Category: Medical (4) MAYCOL (obstructive sleep apnea): Code(s): G47.33 - Obstructive sleep apnea (adult) (pediatric) Category: Medical Plan 03/04/2024- Holter showed baseline normal sinus rhythm, frequent sinus tachycardia burden of 26 %. Patient reports that while wearing the Holter monitor, he did not experience intense sensation of missed or fluttering heartbeats that he described today. He expresses fear of engaging in any physical activity due to the sensations. Told him this symptoms could be related to PACs or PVCs. To further assess for potential life-threatening arrhythmias, we will order another Holter for 14 days. The patient was previously trialed on labetalol and metoprolol but experienced adverse reactions including diaphoresis and elevated heart rate into 150s, which led to discontinuation of these medications immediately. Given his history of asthma, we will try verapamil as an alternative treatment. Additionally, we will proceed with a stress test to assess for ischemic changes and order an echocardiogram to evaluate for any structural abnormalities. Patient unable to complete a tilt-table test due to his weight. Patient had his pulmonology visit today her he was prescribed his CPAP machine. Emphasized on the importance of being compliant with the CPAP therapy. Emphasized importance of weight loss and encouraged patient to stay hydrated. Avoid caffeinated beverages and limit regular Gatorade consumption. Advised to on stress medication techniques, recommended the use of compression stockings, and emphasized the need for regular exercise aiming for 20-30 minutes per session 3 to 4 times a week. Follow-up after completion of these tests. In the interim, patient will call us with any concerns. This note was generated using voice recognition software. While every effort has been made to ensure accuracy and proper benefits manager, there may be occasional errors that could affect the content or meaning of the described symptoms. Orders: Orders ECG 14 day holter monitor Today R00.2 - Palpitations CA echo transthoracic complete Today R00.2 - Palpitations CA stress test Today R00.2 - Palpitations AMB EKG-In Office Today R00.2 - Palpitations Medications: New verapamil ER 120 mg PO DAILY 90 caps 1RF Coding Level of Care Code Est Pt Level 4 (56429) Diagnoses PVC (premature ventricular contraction) I49.3 Palpitation R00.2 Sinus tachycardia R00.0 MAYCOL (obstructive sleep apnea) G47.33 CPT Codes EKG - CPT: 49926-[id number], Complete ([id number]) Time Spent (min) 34 Comment Time spent in reviewing the chart, test results, assessment, counseling and documentation.
--- OUTSIDE RECORDS SUMMARY | 2024-04-18 17:59 | XMS_ITS | Patient Health Record ---
Author Organization Mahendra Delacruz DO, [facility] Address [address] [place] [phone] Care Team Providers Care Medical File Clerk Name Role Phone Mahendra Delacruz Primary Care [...] date:04/26/2023 11:10:37 AM Interpretation:Abnormal Performing Lab: Notes/Report: [address] [address] Fluoroscopy Report Signed Patient: Leif Tompkins MR#: [id number] [birth year] : 1990 Acct:[id number] Age/Sex: 32 / M ADM Date: 04/25/23 Loc: HO.[facility] Attending Dr: Mahendra Delacruz DO Ordering Physician: Mahendra Delacruz DO Date of Service: 04/25/23 Procedure(s): FL upper GI w air w Ba Swallow Accession Number(s): [id number] cc: Mahendra Delacruz DO EXAMINATION: XR FLUOROSCOPY [...] in OV> 04/26/23 0818 DD/ 0945 TD/TT: Brim Presser: Urinalysis and Microscopic Reviewed date:11/03/2023 04:27:31 PM Interpretation:Negative Performing Lab:[facility], [address] [place] [phone] Notes/Report: Color Urine Yellow Appearance Urine Clear PH 7.0 5.0-9.0 Glucose Urine UA Negative Negative mg/dL Urine Blood Negative Negative Specific [employer] - Urine 1.015 1.005-1.025 Urine Protein Negative Neg-Trace mg/dL Urine Ketones Negative Negative mg/dL Nitrite Urine Negative Negative Leukocyte Esterase Urine Negative Negative RBC Urine 0-2 0-2 /HPF WBC Urine 0-5 0-5 /HPF Squamous Epithelial Cell Urine 0-2 0-2 /HPF Bacteria Urine None Seen None Seen Hyaline Casts Urine 0-2 0-2 /LPF Liver Panel Reviewed date:11/03/2023 11:28:01 PM Interpretation:Normal Performing Lab:[facility], [address] [place] [phone] Notes/Report: Bilirubin Total 0.4 0.0-1.0 mg/dL Bilirubin Direct 0.2 0.0-0.5 mg/dL Aspartate Amino Transferase 21 5-37 U/L Alanine Aminotransferase 37 0-40 U/L Total Protein 7.4 6.5-8.0 g/dL Albumin Level 4.1 3.5-5.0 g/dL Alkaline Phosphatase 116 39-117 U/L Basic Metabolic Panel Fastin g Reviewed date:11/03/2023 11:28:01 PM Interpretation:Normal Performing Lab:[facility], [address] [place] [phone] Notes/Report: Sodium 140 135-145 mmol/L Potassium 4.1 3.3-5.1 mmol/L Chloride 109 96-108 mmol/L Carbon Dioxide 23 22-29 mmol/L Anion Gap 12 12-20 Blood Urea Nitrogen 9 9-16 mg/dL Creatinine 0.82 0.5-1.4 mg/dL Estimated Glomerular Filt Rate > 60 NOTE: For -[place] Zealander individuals, multiply the result by 1.210. Chronic Kidney Disease: Estimated GFR < 60 mL/min/1.73m2 Severe Kidney Disease: Estimated GFR < 15 mL/min/1.73m2 Glucose Fasting 86 60-99 mg/dL Calcium 9.3 8.4-10.2 mg/dL C Reactive Protein Reviewed date:11/03/2023 11:28:01 PM Interpretation:Abnormal Performing Lab:[facility], [address] [place] [phone] Notes/Report: C Reactive Protein 0.70 < or = 0.50 mg/dL Lipid Panel Reviewed date:11/03/2023 11:28:01 PM Interpretation:Abnormal Performing Lab:[address] [address] Notes/Report: Triglycerides 76 <150 mg/dL Desirable Triglyceride: [...] ff Reviewed date:11/03/2023 04:18:50 PM Interpretation:Normal Performing Lab:[facility], [address] [place] [phone] Notes/Report: White Blood Count 7.6 4.8-10.8 X10*3/uL [...] te Reviewed date:11/03/2023 11:28:01 PM Interpretation:Normal Performing Lab:[facility], [address] [place] [phone] Notes/Report: Erythrocyte Sedimentation Rate 9 0-15 MM/HR Patients with polycythemia and many hemoglobin abnormalities may have depressed sed rates whereas patients with anemia may have elevated sed rates. Thyroid Stimulating Hormone Reviewed date:11/03/2023 11:28:01 PM Interpretation:Normal Performing Lab:[facility], [address] [place] [phone] Notes/Report: Thyroid Stimulating Hormone 1.32 0.32-4.0 uIU/ mL TSH 3rd Generation ([facility] [facility]) Complete Blood Count Auto Di ff Reviewed date:02/25/2024 06:42:03 PM Interpretation:Normal Performing Lab:[facility], [address] [place] [phone] Notes/Report: White Blood Count 10.7 4.8-10.8 X10*3/uL [...] INR Reviewed date:02/25/2024 06:42:03 PM Interpretation:Normal Performing Lab:[address] [phone] Notes/Report: Prothrombin Time 10.9 10.9-12.4 [employer] [...] Panel Reviewed date:02/25/2024 06:42:53 PM Interpretation:Abnormal Performing Lab:[facility], [address] [place] [phone] Notes/Report: Bilirubin Total 0.3 0.0-1.0 mg/dL Bilirubin Direct 0.1 0.0-0.5 mg/dL Aspartate Amino Transferase 29 5-37 U/L Alanine Aminotransferase 51 0-40 U/L Total Protein 7.8 6.5-8.0 g/dL Albumin Level 4.3 3.5-5.0 g/dL Alkaline Phosphatase 112 39-117 U/L Basic Metabolic Panel Reviewed date:02/25/2024 06:42:03 PM Interpretation:Normal Performing Lab:[address] [address] Notes/Report: Sodium 139 135-145 mmol/L Potassium 3.8 [...] Magnesium Reviewed date:02/25/2024 06:42:03 PM Interpretation:Normal Performing Lab:[address] [address] Notes/Report: Magnesium 2.1 1.6-2.6 mg/dL Troponin-I High Sensitivity Reviewed date:02/25/2024 06:42:03 PM Interpretation:Normal Performing Lab:[address] [address] Notes/Report: Troponin-I High Sensitivity < 2.7 <3.5-35.0 ng/ L [employer] high sensitivity Troponin-I results should be used in conjunction with other diagnostic information such as ECG, clinical observations and information, and patient symptoms to aid in the diagnosis of MD. TSH reflex Free T4 Reviewed date:02/25/2024 06:42:03 PM Interpretation:Normal Performing Lab:[address] [address] Notes/Report: TSH reflex Free T4 2.18 0.32-4.0 uIU/mL D Dimer High Sensitivity Reviewed date:02/25/2024 07:51:44 PM Interpretation:Normal Performing Lab:[address] [address] Notes/Report: D Dimer High Sensitivity < 150 [...] date:02/25/2024 07:52:35 PM Interpretation:Nonacute Performing Lab: Notes/Report: [address] [address] XRay Report Signed Patient: Leif Tompkins MR#: [id number] [birth year] : 1990 Acct:[id number] Age/Sex: 33 / M ADM Date: 02/25/24 Loc: .ED Attending Dr: Ordering Physician: Verna Albright NP Date of Service: 02/25/24 Procedure(s): XR chest 2V Accession Number(s): [id number] cc: Mahendra Delacruz DO; Verna Albright NP [...] by: Hudson Vasquez MD 02/25/2024 07:02 PM [facility] Dictated By: Hudson Vasquez MD Signed By: <Electronically signed by Hudson Vasquez MD in OV> 02/25/24 1902 DD/ 1816 TD/TT: 02/25/24 1821 Brim Presser: KAI REASON FOR REFERRAL Reason GERD Abdominal [...] Specialty Pulmonary Di seases General Notes Fara Salinas 02:23:35 PM EDT > Referral sent prior [...] Problem Vitamin D deficiency (E55.9) Active confirmed 79397321 Problem Sternal pain (R07.89) Active confirmed 148554683 Problem Candidal esophagitis (B37.81) Active confirmed 91877376 Problem Chronic tension-type headache, not intractable (G44.229) Active confirmed 292459268 Problem Acute prostatitis (N41.0) Active confirmed 71947243 Problem Gross hematuria (R31.0) Active confirmed 287530452 Problem Mild intermittent asthma without complication (J45.20) Active confirmed 814858686 Problem Mild persistent asth ma without complication (J45.30) Active confirmed 052020367 Problem Laceration (T14.8) Active confirmed 312 638611 Problem Obstructive sleep ap cely (G47.33) Active confirmed 06772783 Problem Anxiety associated w ith depression (F41.8) Active confirmed 565211010 Problem Posterior vitreous detachment of both eyes (H43.813) Active confirmed 345111700 Problem Gastroesophageal ref lux disease, esophagitis presence not specified (K21.9) Active confirmed 188397591 Problem Seasonal allergic rhinitis due to pollen (J30.1) Active confirmed 59525828 Problem Hypercholesterolemia (E78.00) Active confirmed 68840743 Problem Chest pain, unspecif ied type (R07.9) Active confirmed 41695997 Problem Near syncope (R55) Active confirmed 427 134302 Problem Morbid obesity (E66.01) Active confirmed 850755325 Problem PVCs (premature ventricular contractions) (I49.3) Active confirmed 03751324 VITAL SIGNS Blood pressure diastolic 74 mm Hg 11/21/2023 Height 69.25 in 11/21/2023 Blood pressure systolic 136 mm Hg 11/21/2023 Weight 347 lbs 11/21/2023 BMI 50.87 kg/m2 11/21/2023 Encounters Encounter Location Date Provider Diagnosis Mahendra Delacruz DO, [address] [phone] 08/02/2023 Mahendra Delacruz DO, [address] [id number] 11/15/2023 Mahendra Delacruz DO, [address] [id number] 11/21/2023 Mahendra Delacruz Morbid obesity E66.0 1 and Gastroesophageal reflux disease, esophagitis presence not specified K21.9 Mahendra Delacruz DO, [address] [id number] 04/02/2024 Mahendra Delacruz DO, [address] [id number] 06/12/2023 Mahendra Delacruz DO, [address] [phone] 07/31/2023 Mahendra Delacruz DO, [address] [phone] 09/26/2023 Mahendra Delacruz Gastroesophageal ref lux disease, esophagitis presence not specified K21.9 Mahendra Delacruz DO, [address] [id number] 10/30/2023 Mahendra Delacruz Anxiety associated w ith depression F41.8 ; Hypercholesterolemia E78.00 and Gastroesophageal reflux disease, esophagitis presence not specified K21.9 Mahendra Delacruz DO, [address] [id number] 01/22/2024 Mahendra Delacruz DO, [address] [id number] 05/05/2023 Mahendra Delacruz Gastroesophageal ref lux disease, esophagitis presence not specified K21.9 Mahendra Delacruz DO, [address] [id number] 01/26/2024 Mahendra Delacruz DO, [address] [id number] 02/23/2024 Mahendra Delacruz ASSESSMENTS Encounter Date Diagnosis Assessment Notes Treatment Notes Treatment Clinical Notes 11/21/2023 Gastroesophageal ref lux disease, esophagitis presence not specified (ICD-10 - K21.9) 11/21/2023 Morbid obesity (ICD- 10 - E66.01) 09/26/2023 Gastroesophageal ref lux disease, esophagitis presence not specified (ICD-10 - K21.9) 10/30/2023 Anxiety associated w ith depression (ICD-10 - F41.8) 10/30/2023 Hypercholesterolemia (ICD-10 - E78.00) 05/05/2023 Gastroesophageal ref lux disease, esophagitis presence not specified (ICD-10 - K21.9) 10/30/2023 Gastroesophageal ref lux disease, esophagitis presence not specified (ICD-10 - K21.9) PLAN OF TREATMENT Pending Test Test Name Order Date VITAMIN D 25-OH TOTAL 10/22/2021 Insurance Providers Payer Name Payer Address Payer Phone Subscriber Number Group Number Insured Name Patient Relationship to Insured Coverage Start Date Coverage End Date [facility] [address] [address] [place] [address] [id number] Leif Tompkins Self - patient is the insured [facility] [address] [place], [place] [phone] [id number] Leif Tompkins Self - patient is the [...]
== END 2024-04-18 15:18 | disposition home or self-care (01) ==
PROVIDERS: PCP Internal Medicine
DX: I49.3 Ventricular premature depolarization (principal); R00.2 Palpitations; R00.0 Tachycardia, unspecified; G47.33 Obstructive sleep apnea (adult) (pediatric)
CPT/HCPCS: 93010; 99214

== ENCOUNTER 2024-05-14 11:33 | Outpatient (AMB) | payer OTHER, SELFPAY ==
--- NOTE | 2024-05-14 11:34 | A.OFFPC_ITS ---
Vital Signs 05/14/24 11:46 Height 5 ft 9.75 in Weight 347 lb BMI 50.1 BP 140/72 H Blood Pressure Location Lt brachial Pulse 84 Pulse Source Pulse Oximeter Temp 97.4 F Pulse Oximetry (%) 99 Intake Visit Reasons: follow up Intake Note: would like to discuss heart but is seeing cardiology, for the last month every time he stands up he gets a pressure in the back of the head, also has fluid leaking out of right ear, anxiety Allergies diphtheria, pertussis, tetanus vacc [Diphther,Pertuss,Tetanus Vac] Allergy (Unknown, Verified 05/14/24 17:02) UNKNOWN erythromycin base [ERYTHROMYCIN BASE] Allergy (Unknown, Verified 05/14/24 17:02) UNKNOWN DPT vac Allergy (Unknown, Uncoded 05/14/24 17:02) rash Erythromycin Allergy (Unknown, Uncoded 05/14/24 17:02) rash Medication List - Last Reconciled 05/14/24 by Ricki Staples MD albuterol sulfate 90 mcg/actuation 1 inh inhalation QID PRN albuterol sulfate 90 mcg/actuation (Ventolin HFA) 1 puff inhalation Q4H PRN omeprazole 20 mg PO DAILY 90 days verapamil ER 120 mg PO DAILY PFSH Medical History Sinus tachycardia Palpitation Surgical History No pertinent past surgical history Family History Father No problems noted. Mother No problems noted. Social History Alcohol intake: current Alcohol intake frequency: a few times a month Patient Tobacco Use Status: Former Tobacco user Tobacco use type: Cigarette Years Smoked: 10 +/- , started at age 15, quit 2014, 2PPD Physical exam (Primary Care) Vital Signs: Last Vital Signs Temp 97.4 F 05/14/24 11:46 Pulse 84 05/14/24 11:46 BP 140/72 H 05/14/24 11:46 Pulse Ox 99 05/14/24 11:46 BMI result Body Mass Index 50.1 Tobacco/Smoking Status: Tobacco use Status Patient Tobacco Use Status Former Tobacco user 05/14/24 11:35 Tobacco use type Cigarette 05/14/24 11:35 Coding Level of Care Code New Pt Level 4 (95551) Complex EM visit Add On G2211 Diagnoses PVC (premature ventricular contraction) I49.3 Assessment & Plan Assessment & Plan (1) PVC (premature ventricular contraction): Code(s): I49.3 - Ventricular premature depolarization Category: Medical Plan: Patient has a scheduled stress test and echocardiogram. [facility] History of Present Illness The patient is a 33 year old male presenting with concerns stemming primarily from cardiac arrhythmia. The patient originally scheduled the follow-up with Dr. Delacruz due to ongoing issues which now will be managed under my care, alongside my associate. The patient reports having been diagnosed with arrhythmia and is currently under the care of a cardiology team at [facility]. He has not started taking the prescribed verapamil, preferring to complete a stress test and echocardiogram before beginning medication to assess his condition without pharmaceutical influence. The stress test was delayed due to a severe cold, described as a respiratory infection that is still resolving. The tests are now rescheduled for the upcoming week. Additionally, the history includes complaints of a chronic and unaddressed right ear tympanic membrane rupture with increased secretion in recent weeks, notably described as weird fluid with copious exudate requiring manual removal. Episodes of positional headaches, described as pressure-like when standing, that partially resolve while sitting or lying down were also reported. These are not related to orthostatic hypotension as his blood pressure has remained stable on previous tests. The patient has started using a CPAP machine for sleep apnea recently but is still acclimating, leading to limited nightly use. His sleep disruptions are compounded by anxiety triggered by his health conditions, impacting his quality of life. Despite the anxiety, he denies depression and attributes these experiences to health-related fears which have intensified over the past year as his cardiac symptoms worsened. 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 - Recently started an exercise regimen, including walking and has lost 10 pounds. - Implements intermittent fasting and has improved nutritional habits, focusing on more healthful eating such as salads, grilled chicken, and vegetables. Review of Systems - Cardiovascular: Reports episodes of heart palpitations, exacerbated while lying on the left side. - Neurological: Reports pressure headaches upon standing. - Ear, Nose, Throat: Reports a ruptured tympanic membrane with fluid discharge from the right ear. Physical Exam General: Appearance normal, both eyes and all related structures Nutritional Appearance: Well nourished Orientation/consciousness: Patient oriented x3 Limitations: No limitations Head: Normal to inspection Neck: Normal visual inspection Chest: Normal palpation of entire chest wall Respiratory: Abnormal respiratory effort noted due to ongoing respiratory issues Neurology: Patient oriented x3 Results Plan - Begin verapamil for arrhythmia post stress test and echocardiogram. - Continue to manage health anxiety with lifestyle modifications; consider further psychological evaluation if symptoms persist. - Conduct re-assessment and potential surgical consult for right tympanic membrane rupture if symptoms continue. - Encourage continued use and adjustment to CPAP for sleep apnea management. - Advise completion of rescheduled stress test and echocardiogram to evaluate cardiac condition thoroughly. Patient was informed and verbally consented to the use of an ambient scribe for clinic note documentation during this visit. Discussion Notes I reassured the patient that preliminary reports suggest the heart is likely to be fine and encouraged proceeding with the verapamil post-testing. We agreed to monitor the tympanic membrane condition and continue current conservative management unless changes dictate the need for intervention. I stressed the importance of the scheduled cardiac diagnostics to put the patient?s concerns at ease. The patient?s efforts to improve diet and exercise, as well as adaptation to the CPAP machine, were acknowledged and encouraged as contributory steps to mitigating symptoms and improving health outcomes. Patient Instructions - Start taking verapamil after completing the stress test and echocardiogram. - Note any changes in ear symptoms and report back as necessary. - Continue CPAP usage and report any significant difficulties adjusting. - Maintain current dietary and exercise routines to support overall health and weight management. - Attend the upcoming stress test and echocardiogram appointments. - Be aware of severe headache persistence or any new symptoms, and seek care if needed.
[2024-05-14 11:46] VITALS: BP 140/72; PULSE 84; TEMP 36.3; O2SAT 99; BMI 50.1
--- OUTSIDE RECORDS SUMMARY | 2024-05-14 14:11 | XMS_ITS ---
Author Organization Mahendra Delacruz DO, FACP Address [address] [place] [phone] Care Team Providers Care Baker Pie Name Role Phone Mahendra Delacruz Primary Care Provider Encounters Encounter Location Date Provider Diagnosis Mahendra Delacruz DO, FACP [address] [place] [phone] 04/02/2024 Mahendra Delacruz PLAN OF TREATMENT No Information
--- OUTSIDE RECORDS SUMMARY | 2024-05-14 14:11 | XMS_ITS ---
Author Organization Mahendra Delacruz DO, FACP Address [address] [place] [phone] Care Team Providers Care Layout Artist Name Role Phone Mahendra Delacruz Primary Care Provider [phone] REASON FOR VISIT Trouble Exercising Encounters Encounter Location Date Provider Diagnosis Mahendra Delacruz DO, FACP [address] [place] [phone] 02/23/2024 Mahendra Delacruz PLAN OF TREATMENT No Information
--- OUTSIDE RECORDS SUMMARY | 2024-05-14 14:11 | XMS_ITS ---
Author Organization Mahendra Delacruz DO, FACP Address [address] [place] [phone] Care Team Providers Care Sales And Leasing Agent Name Role Phone Mahendra Delacruz Primary Care [...] Date Provider Diagnosis Mahendra Delacruz DO, FACP [address] [place] [phone] 01/26/2024 Mahendra Delacruz PLAN OF TREATMENT No Information
== END 2024-05-14 12:03 | disposition home or self-care (01) ==
LOC: HO.HMCSH 11:33
PROVIDERS: PCP Internal Medicine; Visit Provider Internal Medicine
DX: I49.3 Ventricular premature depolarization (principal)

== ENCOUNTER → 2024-05-14 11:33 | Outpatient (BNVA) | payer OTHER, SELFPAY | PROVIDERS: PCP Internal Medicine; Visit Provider Internal Medicine | DX: I49.3 Ventricular premature depolarization (principal) | CPT/HCPCS: 99202 ==

== ENCOUNTER → 2024-05-21 09:04 | Outpatient (REF) | payer OTHER, SELFPAY ==
--- NOTE | 2024-05-21 09:08 | CA_ITS ---
Transthoracic Echocardiogram Patient (Last, First, Middle): Leif Tompkins N Gender: Male Date of : 1990 Age: 33 Procedure Date: 05/21/2024 Procedure Type: Transthoracic Echocardiogram Location: OP Height: 180. cm Weight: 154.22 kg BSA: 2.64 m2 Heart Rate: 90 bpm BP: 122 / 85 mmHg Postal Carrier: YONATHAN Rudd MD: Daniel Cervantes COMPRESS TRUCKER Shoe Reconditioner: Jun Jones MD Symptoms: R00.2 - Palpitations Study Quality: Fair ECG Rhythm: Sinus Conclusions: - 1. Low normal LV ejection fraction 50-55% 2. Normal cardiac valvular Dopplers 3. Normal RV systolic pressure 4. No gross pericardial effusion Findings Left Ventricle Normal left ventricular cavity size. There is normal left ventricular wall thickness. The left ventricular systolic function is low normal. The visually estimated ejection fraction is between 50-55%. Spectral Doppler is indicative of a normal filling pattern. Peak GLS is -14.8%, which is moderately reduced. Right Ventricle Normal right ventricular cavity size and systolic function. Atria The left atrium is normal in size. There is no evidence of interatrial shunt. The right atrium is normal in size. Aortic Valve The aortic valve structure and function is likely normal. There is no aortic valve stenosis. There is no aortic valve regurgitation. Mitral Valve Normal mitral valve structure and function. There is trace mitral valve regurgitation. There is no mitral valve stenosis. Pulmonic Valve The pulmonic valve is likely normal. Tricuspid Valve Likely normal tricuspid valve structure and function. There is trace tricuspid valve regurgitation. Tricuspid regurgitation envelope is inadequate for calculation of right ventricular systolic pressure. Normal right atrial pressure. There is no evidence of pulmonary hypertension. Great Vessels All visible segments of the aorta are normal in size. The pulmonary artery was not well visualized. Venous The inferior vena cava is normal in size and collapses greater than 50% with inspiration. Pericardium/Pleural There is no evidence of pericardial effusion. Measurements 2D Linear Measurements IVSd: 1.09 0.6-0.9/0.6-1.0 cm LVIDd: 4.64 3.9-5.3/4.2-5.9 cm LVIDd Index: 1.76 2.4-3.2/2.2-3.1 cm/m2 LVIDs: 3.54 2.0-3.6 cm LVPWd: 1.11 0.7-1.1 cm LA Diam: 3.50 2.7-3.8/3.0-4.0 cm LAIDs Index: 1.33 1.5-2.3 cm/m2 LV Mass: 228.92 67-162/88-224 g LV Mass Index: 86.71 43-95/49-115 g/m2 LVOT Diam: 2.60 3.0+(-)1.3 cm 2D Systolic Function EF 4C: 51.40 >55% EF 2C: 56.10 >55% EF BiP: 52.20 >55% Mitral Valve MV Pk E: 0.76 MV PK A: 0.68 MV Decel Time: 261.00 E/A: 1.10 E'Lateral: 14.70 E'Medial: 8.81 E/E' Med: 8.60 E/E' Lat: 5.20 PHT: 76.00 MVA PHT: 2.89 Decel Erie: 2.91 Aortic Valve AoV Pk Franki: 1.13 AoV Mn Franki: 0.81 AoV VTI: 0.21 AoV Pk Grad: 5.00 Aov Mn Grad: 3.00 LEOBARDO Cont.VTI: 3.95 LVOT LVOT Pk Franki: 0.83 LVOT Mn Franki: 0.59 LVOT VTI: 0.16 LVOT Pk Grad: 3.00 LVOT Mn Grad: 2.00 LVOT Diam: 2.60 LVOT Area: 5.31 Diastolic Function MV Pk E: 0.76 MV Pk A: 0.68 E/A: 1.10 E'Medial: 8.81 E/E' Med: 8.60 E' Laterial: 14.70 E/E' Lat: 5.20 Right Ventricle TAPSE (mm): 18.80 TVS' Franki: 10.20 Tricuspid Valve RA Press: 3.00 Great Vessels Aorta Sinus of Valsalva: 3.70 2.0-3.5 cm Ao Asc: 3.50 2.1-3.4 cm Ao Arch: 2.70 Pulmonary Valve PV Pk Franki: 1.00 Peak PV Grad: 4.00 Updated in Other Vendor System with Status of Final Jun Jones MD electronically signed on 05/22/2024 3:23:18 PM with status of Final
--- NOTE | 2024-05-21 09:08 | CA_ITS ---
Acquisition Time: 2024-05-21 10:45:00 Total Exercise Time: 00:01:26 Test Indications: cp Medications: see h&p Protocol: TATI Max HR: 139 BPM 73% of Pred: 188 BPM Max BP: 148/94 mmHG Max Work Load: 3.5 METS Exercise Stress Test with exercise 1 min 26 secs of Tati Protocol, achieving 70% MPHR, requesting to stop due to SOB (has been sick with cold for the past 2 months, limiting with exercise), without any arrythmias, with normotensive response to exercise. Nondiagnostic EKG for ischemia due to suboptimal HR. In recovery, breathing returned to baseline. Test reviewed with Dr. Jones. May need to reschedule again for an ETT once recovered from cold. If worsening symptoms, then will get a nuclear study. Referred By: Daniel Cervantes Electronically Signed By: Daniel Cervantes
--- OUTSIDE RECORDS SUMMARY | 2024-05-21 10:00 | XMS_ITS ---
Author Organization [facility] Address [address] [place] [phone] Care Team Providers Care Air Brake Man Name Role Phone Nubia (RETIRED) Mahendra REY Primary Care Provid er Unavailable Mahendra Montoya Unavailable [phone] REASON FOR VISIT new insurance? Encounters Encounter Location Date Provider Diagnosis [facility] [address] [place] [phone] 07/25/2023 Mhaendra Montoya PLAN OF TREATMENT No Information
--- OUTSIDE RECORDS SUMMARY | 2024-05-21 10:00 | XMS_ITS | Patient Health Record ---
Author Organization [facility] Address [address] [place] [address] Care Team Providers Care Barkeeper Name Role Phone Nubia (RETIRED) Mahendra REY Primary Care Provid er Unavailable Mahendra Montoya Unavailable [phone] REASON FOR REFERRAL No Information SOCIAL HISTORY Sex Assigned At : Social History Observation Description Sex Assigned At Unknown Encounters Encounter Location Date Provider Diagnosis [facility] [address] [place] [phone] 08/25/2023 Mahendra Montoya [facility] [address] [place] [phone] 07/25/2023 Mahendra Montoya [facility] [address] [place] [address] 07/25/2023 Mahendra Montoya PLAN OF TREATMENT No Information
--- OUTSIDE RECORDS SUMMARY | 2024-05-21 10:00 | XMS_ITS ---
Author Organization [facility] Address [address] [place] [phone] Care Team Providers Care Garden Equipment Mechanic Name Role Phone Nubia (RETIRED) Mahendra REY Primary Care Provid er Unavailable Mahendra Montoya Unavailable [phone] REASON FOR VISIT cancel appt Encounters Encounter Location Date Provider Diagnosis [facility] [address] [place] [phone] 07/25/2023 Mahendra Montoya PLAN OF TREATMENT No Information
--- OUTSIDE RECORDS SUMMARY | 2024-05-21 10:00 | XMS_ITS ---
Author Organization [facility] Address [address] [place] [phone] Care Team Providers Care Call Specialist Name Role Phone Nubia (RETIRED) Mahendra ERY Primary Care Provid er Unavailable Mahendra Montoya Unavailable [phone] REASON FOR VISIT Patient presents today for GERD,BLOATING Encounters Encounter Location Date Provider Diagnosis [facility] [address] [place] [phone] 08/25/2023 Mahendra Montoya PLAN OF TREATMENT No Information
== END ==
LOC: HO.CARD 09:04
DX: R00.2 Palpitations (principal); G47.33 Obstructive sleep apnea (adult) (pediatric)
CPT/HCPCS: 93017; 93246; 93306; 99212

== ENCOUNTER → 2024-05-21 09:08 | Outpatient (BNV) | payer OTHER, SELFPAY | DX: R94.31 Abnormal electrocardiogram [ECG] [EKG] (principal) | CPT/HCPCS: 93016; 93018; 93320; 93350; 93356 ==

== ENCOUNTER 2024-05-21 13:00 | Outpatient (AMB) | payer OTHER, SELFPAY ==
--- NOTE | 2024-05-21 13:03 | A.OFFVIS_ITS ---
Vital Signs 05/21/24 13:04 Height 5 ft 9.75 in Weight 349 lb BMI 50.4 BP 144/97 H Blood Pressure Location Rt brachial Position Sitting Pulse 100 Pulse Source Doppler Pulse Oximetry (%) 99 Oxygen Delivery Method Room Air Intake Visit Reasons: Snoring Allergies diphtheria, pertussis, tetanus vacc [Diphther,Pertuss,Tetanus Vac] Allergy (Unknown, Verified 05/21/24 13:11) UNKNOWN erythromycin base [ERYTHROMYCIN BASE] Allergy (Unknown, Verified 05/21/24 13:11) UNKNOWN DPT vac Allergy (Unknown, Uncoded 05/14/24 17:02) rash Erythromycin Allergy (Unknown, Uncoded 05/14/24 17:02) rash HPI HPI Snoring: Details: 33-year-old gentleman, former approximately 50 pack-year smoker, quit 2014 followed for moderate obstructive sleep apnea and asthma. Patient had received his CPAP machine has been trying to use it, however has been having difficulty secondary to bronchitic symptoms over the last month. Patient continues on albuterol MDI as needed for his underlying asthma. He is intolerant of inhaled or systemic glucocorticoids. [facility] Medical History Sinus tachycardia Palpitation Surgical History No pertinent past surgical history Family History Father No problems noted. Mother No problems noted. Social History Alcohol intake: current Alcohol intake frequency: a few times a month Patient Tobacco Use Status: Former Tobacco user Tobacco use type: Cigarette Years Smoked: 10 +/- , started at age 15, quit 2014, 2PPD Review of Systems Const Denies daytime sleepiness, Denies excessive sweating, Denies fatigue, Denies fever(s), Denies lethargy, Denies malaise, Denies night sweats, Denies snoring and Denies weight loss Eyes Denies blurry vision and Denies itchy eyes ENT Denies nasal congestion, Denies post nasal drip, Denies sinus pain, Denies sinus pressure and Denies other ( Thrush) Card Denies chest pain, Denies pedal edema, Denies dyspnea, Denies orthopnea and Denies paroxysmal nocturnal dyspnea Resp Reports cough, Denies hemoptysis, Reports excessive phlegm production, Denies dyspnea, Denies snoring and Denies wheezing GI Denies abdominal pain and Denies heartburn Musc Denies myalgias, Denies arthralgias and Denies joint swelling Skin/Breast Denies rash Neuro Denies memory loss and Denies seizure-like activity Psych Denies abnormal sleep pattern, Denies anxiety and Denies memory loss Endo Denies excessive sweating, Denies fatigue and Denies heat intolerance Neel/Lymph Denies easy bruising Aller/Immun Denies itchy eyes, Denies seasonal rhinorrhea and Denies wheezing Physical Exam Vital Signs: Last Vital Signs Pulse 100 05/21/24 13:04 BP 144/97 H 05/21/24 13:04 Pulse Ox 99 05/21/24 13:04 Oxygen Delivery Method Room Air 05/21/24 13:04 BMI result Body Mass Index 50.4 Const General: no acute distress and alert Nutritional Appearance: obese Orientation/consciousness: Other orientation findings ( oriented) HEENT Head: Yes atraumatic Eyes General: appearance normal, both eyes and all related structures Sclerae: sclerae normal EOM: EOMs intact bilaterally Neck Neck: Yes supple Lymphatic: no lymphadenopathy noted Resp Effort & Inspection: normal respiratory effort and no use of accessory muscles Auscultation: clear to auscultation bilaterally Cardio Rate: regular rate Rhythm: regular rhythm Heart sounds: no gallops, no murmurs and no rubs Skin General skin exam: other ( warm) Extrem General: No clubbing, No cyanosis and No edema Assessment & Plan Assessment & Plan (1) Asthma: Code(s): J45.909 - Unspecified asthma, uncomplicated Category: Medical Plan: Reasonably well controlled on current regimen of as needed albuterol MDI. Continue current regimen. (2) MAYCOL (obstructive sleep apnea): Code(s): G47.33 - Obstructive sleep apnea (adult) (pediatric) Category: Medical Plan: Patient currently suboptimally compliant secondary to underlying bronchitic symptoms and inability to tolerate mask at night for the last several weeks. Will treat bronchitic symptoms with a course of Levaquin. Medications: New levofloxacin 750 mg PO DAILY 7 tabs 0RF Coding Level of Care Code Est Pt Level 4 (42461) Diagnoses Asthma J45.909 MAYCOL (obstructive sleep apnea) G47.33
[2024-05-21 13:04] VITALS: BP 144/97; PULSE 100; O2SAT 99; BMI 50.4
== END 2024-05-21 13:20 | disposition home or self-care (01) ==
PROVIDERS: PCP Internal Medicine; Visit Provider Internal Medicine Pulmonary Disease
DX: J45.909 Unspecified asthma, uncomplicated (principal); G47.33 Obstructive sleep apnea (adult) (pediatric)
CPT/HCPCS: 99214

== ENCOUNTER 2024-06-18 11:26 | Outpatient (AMB) | payer OTHER, SELFPAY ==
--- NOTE | 2024-06-18 11:13 | A.OFFPC_ITS ---
Vital Signs 06/18/24 11:20 Height 5 ft 9.75 in Weight 349 lb BMI 50.4 BP 162/82 H Blood Pressure Location Rt brachial Pulse 83 Temp 98.6 F Pulse Oximetry (%) 97 Intake Visit Reasons: Ear discharge, headaches Intake Note: mole on right side of face that keeps growing, leaving for [place] was wondering if he could get some ativan Allergies diphtheria, pertussis, tetanus vacc [Diphther,Pertuss,Tetanus Vac] Allergy (Unknown, Verified 06/18/24 15:05) UNKNOWN erythromycin base [ERYTHROMYCIN BASE] Allergy (Unknown, Verified 06/18/24 15:05) UNKNOWN DPT vac Allergy (Unknown, Uncoded 06/18/24 15:05) rash Erythromycin Allergy (Unknown, Uncoded 06/18/24 15:05) rash Medication List - Last Reconciled 06/18/24 by Urvashi Milan PA-C albuterol sulfate 90 mcg/actuation (Ventolin HFA) 1 puff inhalation Q4H PRN aspirin (Adult Aspirin Regimen) 81 mg PO DAILY lisinopril 10 mg PO DAILY lorazepam (Ativan) 1 mg PO DAILY PRN omeprazole 20 mg PO DAILY 90 days rosuvastatin (Crestor) 10 mg PO DAILY PFSH Medical History (Updated 06/18/24 @ 15:10 by Urvashi Milan PA-C) Morbid obesity with BMI of 50.0-59.9, adult Atypical mole Perforated right tympanic membrane on examination Frequent headaches Hypertension Sinus tachycardia Palpitation Surgical History No pertinent past surgical history Family History Father No problems noted. Mother No problems noted. Social History Alcohol intake: current Alcohol intake frequency: a few times a month Patient Tobacco Use Status: Former Tobacco user Tobacco use type: Cigarette Years Smoked: 10 +/- , started at age 15, quit 2014, 2PPD Questionnaire PHQ-9 Over the last 2 weeks, how often have you been bothered by any of the following problems? 1. Little interest or pleasure in doing things: not at all 2. Feeling down, depressed, or hopeless: not at all 3. Trouble falling or staying asleep, or sleeping too much: not at all 4. Feeling tired or having little energy: not at all 5. Poor appetite or overeating: not at all 6. Feeling bad about yourself - or that you are a failure or have let yourself or your family down: not at all 7. Trouble concentrating on things, such as reading the newspaper or watching television: not at all 8. Moving or speaking so slowly that other people could have noticed. Or the opposite - being so fidgety or restless that you have been moving around a lot more than usual: not at all 9. Thoughts that you would be better off or of hurting yourself in some way: not at all Total score: 0 Depression Screening Interpretation: Negative Depression Screening Done: Yes 76569 - PHQ-9 Billing: Yes Source: Developed by Drs. Mahendra Laughlin, Sheryl Montalvo, Lizandro Su and colleagues, with an educational sonali from [employer]. Thrive Questionnaire Date Thrive assessed: 06/18/24 I am a: Patient What is your living situation today?: I have a steady place to live Within the past 12 months, did the food you bought not last and you didn't have the money to get more?: Never true Within the past 12 months, did you worry whether your food would run out before you got money to buy more?: Never true Do you have trouble paying for medicines?: No Do you have trouble getting transportation to medical appointments?: No Do you have trouble paying your heating and electricity bill?: No Do you have trouble taking care of your child, family member or friend?: No Do you have trouble with day-to-day activities such as bathing, preparing meals, shopping, managing finances, etc.?: No Are you currently unemployed and looking for a job?: No Are you interested in more education?: No THRIVE Score: 0 AUDIT C Alcohol Use Questionnaire (AUDIT-C) 1. How often do you have a drink containing alcohol?: Monthly or less 2. How many drinks containing alcohol do you have on a typical day when you are drinking?: 1 or 2 3. How often do you have six or more drinks on one occasion?: Never Total Score: 1 Score Reviewed/Action Taken: No RICH-7 AMB Questionnaire RICH-7 Date RICH - 7 assessed: 06/18/24 Feeling nervous, anxious, or on edge: 1 = Several days Not being able to stop or control worryin = Several days Worrying too much about different things: 0 = Not at all Trouble relaxin = Not at all Being so restless that it is hard to sit still: 0 = Not at all Becoming easily annoyed or irritable: 0 = Not at all Feeling afraid as if something awful might happen: 0 = Not at all Total RICH-7 score (0-4 normal; 5-9 mild; 10-14 moderate; 15-21 severe): 2 Source: Developed by Drs. Mahendra Laughlin, Sheryl Montalvo, Lizandro Su and colleagues, with an educational sonali from [employer]. RICH-7 Assessment Billing RICH-7 Assessment Tool: RICH-7 Assessment 19784 Physical exam (Primary Care) Vital Signs: Last Vital Signs Temp 98.6 F 06/18/24 11:20 Pulse 83 06/18/24 11:20 BP 162/82 H 06/18/24 11:20 Pulse Ox 97 06/18/24 11:20 Care Plan Goal for BP management: <130/80 BMI result Body Mass Index 50.4 BMI Assessment/Plan discussion: High BMI High, discussed plan: lifestyle, weight reduction, dietary, physical activity and alcohol moderation Tobacco/Smoking Status: Tobacco use Status Patient Tobacco Use Status Former Tobacco user 06/18/24 11:14 Tobacco use type Cigarette 06/18/24 11:14 PHQ-9: PHQ-9 Score PHQ-9: Total score 0 06/18/24 14:53 Depression Screening Interpretation: Negative Thrive Assessment: Date of Thrive Assessment Date Thrive assessed 06/18/24 06/18/24 11:26 Coding Level of Care Code Est Pt Level 4 (01660) Complex EM visit Add On G2211 Diagnoses Hypertension I10 Frequent headaches R51.9 Perforated right tympanic membrane on examination H72.91 Atypical mole D22.9 MAYCOL (obstructive sleep apnea) G47.33 Morbid obesity with BMI of 50.0-59.9, adult E66.01; Z68.43 Additional Codes PHQ-9 - 03333 - PHQ-9 Billing: Yes ([id number]) RICH-7 Assessment Billing - RICH-7 Assessment Tool: RICH-7 Assessment 09401 ([id number]) Assessment & Plan Assessment & Plan (1) Hypertension: Code(s): I10 - Essential (primary) hypertension Category: Medical Plan: Initiate Lisinopril and encourage lifestyle modifications. Monitor blood pressure. Return in 1 month for blood pressure recheck. (2) Frequent headaches: Code(s): R51.9 - Headache, unspecified Category: Medical Plan: Address related hypertension, assess ear issues, and continue symptomatic management. Then reassess. (3) Perforated right tympanic membrane on examination: Code(s): H72.91 - Unspecified perforation of tympanic membrane, right ear Category: Medical Plan: ENT consultation for assessment and potential intervention. (4) Atypical mole: Code(s): D22.9 - Melanocytic nevi, unspecified Category: Medical Plan: Dermatology referral for mole evaluation and potential biopsy. (5) MAYCOL (obstructive sleep apnea): Code(s): G47.33 - Obstructive sleep apnea (adult) (pediatric) Category: Medical Plan: Continue CPAP use, address high blood pressure to see if symptoms improve. (6) Morbid obesity with BMI of 50.0-59.9, adult: Code(s): E66.01 - Morbid (severe) obesity due to excess calories; Z68.43 - Body mass index [BMI] 50.0-59.9, adult Category: Medical Plan: Patient to improve his diet and exercise regimen. Condition is chronic and stable continue to monitor. Plan Plan Patient was informed and verbally consented to the use of an ambient scribe for clinic note documentation during this visit. 1. Obstructive Sleep Apnea Continue CPAP use, address high blood pressure to see if symptoms improve. 2. Enlarging Facial Mole Dermatology referral for mole evaluation and potential biopsy. 3. Essential Hypertension Initiate Lisinopril and encourage lifestyle modifications. Monitor blood pressure. 4. Dizziness and giddiness ENT referral, monitor symptoms and consider vestibular exercises. 5. Chronic Headaches Address related hypertension, assess ear issues, and continue symptomatic management. 6. Ruptured Tympanic Membrane ENT consultation for assessment and potential intervention. 7. Chronic Ear Drainage Manage hygiene, ENT evaluation for persistent drainage. Discussion Notes I discussed with the patient the diagnosis of essential hypertension and the need for antihypertensive treatment with Lisinopril. Benefits and risks were addressed, including the most common side effects. I emphasized the importance of adhering to the medication and lifestyle changes to decrease future cardiovascular risks. The rationale for referring the patient to ENT for further evaluation of chronic ear drainage related to a perforated tympanic membrane and vertigo was thoroughly explained. Additionally, the patient understood the necessity for a dermatological evaluation of an enlarging mole for potential malignancy. Anticipatory guidance was given including arranging for follow-up to assess the response to hypertension treatment and further diagnostic testing outcomes, including a CT scan to rule out other potential causes of headaches. Orders: Orders C Reactive Protein Today Z00.00 - Encounter for general adult medical examination without abnormal findings Complete Blood Count Auto Diff Today Z00.00 - Encounter for general adult medical examination without abnormal findings Lipid Panel Today Z00.00 - Encounter for general adult medical examination without abnormal findings Liver Panel Today Z00.00 - Encounter for general adult medical examination without abnormal findings Hemoglobin A1c Today Z00.00 - Encounter for general adult medical examination without abnormal findings Magnesium Today Z00.00 - Encounter for general adult medical examination without abnormal findings TSH reflex Free T4 Today Z00.00 - Encounter for general adult medical examination without abnormal findings CT head/brain wo IV con Today I10 - Essential (primary) hypertension, R51.9 - Headache, unspecified Comprehensive [place]. Panel Fast Today Z00.00 - Encounter for general adult medical examination without abnormal findings Erythrocyte Sedimentation Rate Today Z00.00 - Encounter for general adult medical examination without abnormal findings PSA,Total (Free>4and<10) Today Z00.00 - Encounter for general adult medical examination without abnormal findings Vitamin D 25-OH Total Today Z00.00 - Encounter for general adult medical examination without abnormal findings Vitamin B12 and Folate Today Z00.00 - Encounter for general adult medical examination without abnormal findings Referrals Ear/Nose/Throat Referral H72.91 - Unspecified perforation of tympanic membrane, right ear, R51.9 - Headache, unspecified Dermatology Referral D22.9 - Melanocytic nevi, unspecified Medications: New lisinopril 10 mg PO DAILY 30 tabs 0RF I10 - Essential (primary) hypertension rosuvastatin (Crestor) 10 mg PO DAILY 90 tabs 1RF aspirin (Adult Aspirin Regimen) 81 mg PO DAILY 90 tabs 1RF lorazepam (Ativan) 1 mg PO DAILY PRN 5 tabs 0RF anxiety Patient Instructions: Patient Instructions - Take Lisinopril as prescribed, monitor blood pressure regularly. - Use CPAP machine consistently every night for sleep apnea. - Adhere to a healthy diet and continue daily walking for lifestyle improvement. - Monitor headaches and report any changes. - Await ENT scheduling to assess ear condition and its role in symptoms. - Schedule and attend dermatology appointment for mole evaluation. - Seek emergency medical care if any headache persists or there is severely elevated blood pressure. Scribe Plan - Not visible on output: History of Present Illness The patient is a 33-year-old male presenting with persistent headaches, vertigo, and ear drainage. The dull, all-day headaches, which become throbbing when standing, have worsened over time. This was initially attributed to sleep apnea, yet the introduction of CPAP therapy has not alleviated the condition. The patient continues to experience vertigo and worsening symptoms, described as feelings of dizziness and lightheadedness. In addition, ear drainage has been observed, notably worsened with headaches. Reports high blood pressure and unease with medication due to previous intolerance related to beta blockers for tachycardia management. The patient mentions a ruptured eardrum causing drainage for several years, with recent significant changes. Also mentioned is a mole on the face that has grown noticeably. Social History - Exercise: Recently began walking 0.5 miles daily. - Past Smoking History: Quit smoking approximately 10 years ago. - Alcohol Use: Denies current alcohol consumption. Review of Systems - Nervous System: Reports dizziness, vertigo, and persistent headaches with worsening symptoms over time. - Sensory: Reports no changes in vision. - Respiratory: Denies current cough or wheeze, but has asthma diagnosis. - Cardiovascular: Denies chest pain but mentions consistently high blood pressure readings. - Neurological: Reports lightheadedness upon standing. - Dermatological: Reports notable increase in size of facial mole over the past year. - Otological: Reports chronic ear drainage, especially when headaches occur. Physical Exam Appearance: Alert. Oriented X3. No acute distress. Head: Normal external exam. Normocephalic. Atraumatic. Reports frequent headaches and dizziness. Eyes: Pupils are equal, round, and reactive to light. Extraocular movements intact. Conjunctiva and sclera normal. Eyelids normal. Ears: External auditory canal normal. Tympanic membranes normal. Reports ear leakage and chronic perforation in the right ear. Throat: Pharynx normal. Uvula midline. Moist mucous membranes. Neck: Normal inspection. Neck supple. Full range of motion. No adenopathy. Thyroid Normal. No meningeal signs. No neck mass noted. Cardiovascular: Normal heart rate and rhythm. Heart sound normal. No murmurs noted. Pulses normal throughout. Blood pressure recorded at 162/82. Respiratory: No respiratory distress. Painless inspiration. Breath sounds normal. No wheezes/rales/rhonchi noted. Chest nontender. No accessory muscle usage noted or decreased air movement noted. Abdomen: Soft and nontender. Bowel sounds normal in all 4 quadrants. No distention noted. No organomegaly noted. No visible injury noted. Back: No costovertebral angle tenderness. Full range of motion noted. Skin: Skin warm and dry. Normal skin color. Normal skin turgor. No rashes/lesions/lacerations noted. Reports a mole on the face that has grown significantly. Extremities: No lower extremity edema. Extremities exhibit normal range of motion. Extremities nontender. Neuro: Oriented X 3. No motor deficit. No sensory deficit. Reflexes normal. Reports vertigo and lightheadedness upon standing. Results - Labs: Previous high cholesterol readings noted, otherwise no recent labs discussed. - Tests: None recently completed, but a referral for a CT scan discussed. - Screening: Previous echocardiograms noted with ejection fraction 50-55%.
[2024-06-18 11:20] VITALS: BP 162/82; PULSE 83; TEMP 37; O2SAT 97; BMI 50.4
--- OUTSIDE RECORDS SUMMARY | 2024-06-18 13:54 | XMS_ITS ---
Author Organization [facility] Address [address] [place] [address] Care Team Providers Care Crane Assembler Name Role Phone Nubia (RETIRED) Mahendra REY Primary Care Provid er Unavailable Mahendra Montoya Unavailable [phone] REASON FOR VISIT new insurance? Encounters Encounter Location Date Provider Diagnosis [facility] [address] [place] [phone] 07/25/2023 Mahendra Montoya Plan Of Treatment No Information Progress Notes * BARAK LEESDOB:1990 (33 yo M)Acc No.[id number]:07/25/2023 Patient:?BARAK LEES :1990???Age:33 Y???Sex:Male Address: [address], [place], [address] * true * Date:? Generated for Tawanna payne/Teddy/eTransmitting on:?06/18/2024 01:53 PM EDT
--- OUTSIDE RECORDS SUMMARY | 2024-06-18 13:54 | XMS_ITS ---
Author Organization [facility] Address [address] [place] [phone] Care Team Providers Care Cafe Worker Name Role Phone Nubia (RETIRED) Mahendra REY Primary Care Provid er Unavailable Mahendra Montoya Unavailable [phone] REASON FOR VISIT Patient presents today for GERD,BLOATING Encounters Encounter Location Date Provider Diagnosis [facility] [address] [place] [phone] 08/25/2023 Mahendra Montoya Plan Of Treatment No Information Progress Notes * MARQUEZBARAK RUSSODOB:1990 (33 yo M)Acc No.[id number]:08/25/2023 Progress Notes Patient:?BARAK LEES Provider:?Mahendra Montoya MD :1990???Age:33 Y???Sex:Male [place] e:08/25/2023 Address:[facility] [place] [id number] Pcp:Mahendra Delacruz (RETIRE D), DO Subjective: * Chief Complaints: * ???1. Patient presents today for GERD,BLOATING. * Medical History:? Objective: * Vitals:? Assessment: Plan: * Treatment: * * The named appointment provid er may or may not be the originator of this progress note, and it is not deemed complete until electronically signed by the appointment provider. Sign off status: Pending * Provider:?Mahendra Montoya MD Date:? 024 Generated for Tawanna payne/Teddy/eTransmitting on:?06/18/2024 01:54 PM EDT
--- OUTSIDE RECORDS SUMMARY | 2024-06-18 13:54 | XMS_ITS | Patient Health Record ---
Author Organization [facility] Address [address] [place] [phone] Care Team Providers Care Yarn Bleaching Machine Operator Name Role Phone Nubia (RETIRED) Mahendra REY Primary Care Provid er Unavailable Mahendra Montoya Unavailable [phone] Reason For Referral No Information Encounters Encounter Location Date Provider Diagnosis [facility] [address] [place] [phone] 07/25/2023 Mahendra Montoya [facility] [address] [place] [phone] 07/25/2023 Mahendra Montoya Plan Of Treatment No Information
--- OUTSIDE RECORDS SUMMARY | 2024-06-18 13:54 | XMS_ITS ---
Author Organization [facility] Address [address] [place] [phone] Care Team Providers Care Maintenance Shop Laborer Name Role Phone Nubia (RETIRED) Mahendra REY Primary Care Provid er Unavailable Mahendra Montoya Unavailable [phone] REASON FOR VISIT cancel appt Encounters Encounter Location Date Provider Diagnosis [facility] [address] [place] [phone] 07/25/2023 Mahendra Montoya Plan Of Treatment No Information Progress Notes * BARAK LEESDOB:1990 (33 yo M)Acc No.[id number]:07/25/2023 Patient:?BARAK LEES :1990???Age:33 Y???Sex:Male Address: [address], [place], [address] * true * Date:? Generated for Tawanna payne/Teddy/eTransmitting on:?06/18/2024 01:53 PM EDT
== END 2024-06-18 12:03 | disposition home or self-care (01) ==
LOC: HO.HMCSH 11:26
PROVIDERS: PCP Internal Medicine; Visit Provider Physician Assistant Medical
DX: I10 Essential (primary) hypertension (principal); R51.9 Headache, unspecified; H72.91 Unspecified perforation of tympanic membrane, right ear; D22.9 Melanocytic nevi, unspecified; G47.33 Obstructive sleep apnea (adult) (pediatric); E66.01 Morbid (severe) obesity due to excess calories; Z68.43 Body mass index [BMI] 50.0-59.9, adult

== ENCOUNTER → 2024-06-18 11:26 | Outpatient (BNVA) | payer OTHER, SELFPAY | PROVIDERS: PCP Internal Medicine; Visit Provider Physician Assistant Medical | DX: I10 Essential (primary) hypertension (principal); R51.9 Headache, unspecified; H72.91 Unspecified perforation of tympanic membrane, right ear; D22.9 Melanocytic nevi, unspecified; G47.33 Obstructive sleep apnea (adult) (pediatric); E66.01 Morbid (severe) obesity due to excess calories; Z68.43 Body mass index [BMI] 50.0-59.9, adult; Z71.3 Dietary counseling and surveillance | CPT/HCPCS: 96127; 99212 ==

== ENCOUNTER 2024-07-02 15:35 | Outpatient (REF) | payer OTHER, SELFPAY ==
--- NOTE | ~2024-07-02 | CT_ITS ---
CLINICAL HISTORY: I10 - Essential (primary) hypertension CT head without contrast Comparison: None Findings: No intra-axial mass, midline shift, hydrocephalus, or acute hemorrhage. No significant atrophy-like change or white matter disease. Right mastoid and middle ear effusion, nonspecific. No erosive changes. This may be further evaluated clinically as well with the ENT consult. The orbits are unremarkable. There is no acute fracture. IMPRESSION: 1. No acute intracranial findings. This document has been electronically signed by: Gino Oleary MD on 07/03/2024 19:59:46
== END 2024-07-02 15:36 | disposition home or self-care (01) ==
LOC: HO.CT 15:35
PROVIDERS: PCP Internal Medicine; Visit Provider Physician Assistant Medical
DX: I10 Essential (primary) hypertension (principal); R51.9 Headache, unspecified
CPT/HCPCS: 70450

== ENCOUNTER → 2024-07-02 15:36 | Outpatient (BNV) | payer OTHER, SELFPAY | PROVIDERS: PCP Internal Medicine; Visit Provider Radiology Diagnostic Radiology | DX: I10 Essential (primary) hypertension (principal) | CPT/HCPCS: 70450 ==

== ENCOUNTER 2024-07-09 13:00 | Outpatient (AMB) | payer OTHER, SELFPAY ==
[2024-07-09 13:24] VITALS: BP 130/80; PULSE 78; BMI 50.8
--- NOTE | 2024-07-09 13:24 | A.OFFVIS_ITS ---
Vital Signs 07/09/24 13:24 Height 5 ft 9 in Weight 343 lb 14.738 oz BMI 50.8 BP 130/80 Blood Pressure Location Lt brachial Position Sitting Pulse 78 Pulse Source Pulse Oximeter Intake Visit Reasons: follow up after testing Allergies diphtheria, pertussis, tetanus vacc [Diphther,Pertuss,Tetanus Vac] Allergy (Unknown, Verified 06/18/24 15:05) UNKNOWN erythromycin base [ERYTHROMYCIN BASE] Allergy (Unknown, Verified 06/18/24 15:05) UNKNOWN DPT vac Allergy (Unknown, Uncoded 06/18/24 15:05) rash Erythromycin Allergy (Unknown, Uncoded 06/18/24 15:05) rash Medication List - Last Reconciled 07/09/24 by Daniel Cervantes NP albuterol sulfate 90 mcg/actuation (Ventolin HFA) 1 puff inhalation Q4H PRN aspirin (Adult Aspirin Regimen) 81 mg PO DAILY lisinopril 10 mg PO DAILY lorazepam (Ativan) 1 mg PO DAILY PRN omeprazole 20 mg PO DAILY 90 days rosuvastatin (Crestor) 10 mg PO DAILY HPI Comments Details: This is a 34-year-old male patient presenting for a follow-up visit. His medical history includes asthma, PVC, sinus tachycardia, obesity, and sleep apnea. Patient has been evaluated in the office multiple times for palpitations and prior Holter monitoring that revealed PVCs with normal sinus rhythm and sinus tachycardia. He was recently seen for worsening palpitations and chest discomfort for which he underwent a stress test, echocardiogram, and Holter monitor. Since that time the patient has begun exercising regularly and using his CPAP machine consistently. He reports some improvement in his symptoms, noting that his palpitations are now less frequent. However, he continues to experience occasional episodes of squeezing chest pain with no pattern. Patient is otherwise denying any dizziness, fatigue, orthopnea, PND, leg edema, presyncope, or syncope. Patient reports that his primary care recently prescribed new medications and would like to review them before initiating them. [facility] Medical History Morbid obesity with BMI of 50.0-59.9, adult Atypical mole Perforated right tympanic membrane on examination Frequent headaches Hypertension Sinus tachycardia Palpitation Surgical History No pertinent past surgical history Family History Father No problems noted. Mother No problems noted. Social History Alcohol intake: current Alcohol intake frequency: a few times a month Patient Tobacco Use Status: Former Tobacco user Tobacco use type: Cigarette Years Smoked: 10 +/- , started at age 15, quit 2015, 2PPD Review of Systems Const Denies weakness ENT Denies dizziness Card Denies chest pain, Denies chest pain with activity, Denies syncope, Denies rapid heart rate, Denies pedal edema, Denies edema, Denies leg edema, Denies lightheadedness, Denies palpitations, Denies dyspnea, Denies dyspnea on exertion and Denies orthopnea Resp Denies cough, Denies dyspnea and Denies dyspnea on exertion GI Denies hematochezia and Denies change in stool character Musc Denies abnormal gait, Denies muscle cramps, Denies muscle weakness, Denies numbness, Denies radiating pain into limb and Denies tingling Neuro Denies abnormal gait, Denies dizziness, Denies syncope, Denies numbness, Denies tingling and Denies weakness Endo Denies palpitations Physical Exam Vital Signs: Last Vital Signs Pulse 78 07/09/24 13:24 BP 130/80 07/09/24 13:24 BMI result Body Mass Index 50.8 Const General: cooperative, healthy appearing, comfortable and no acute distress Orientation/consciousness: patient oriented x3 HEENT Head: Yes normal to inspection Neck Neck: Yes normal visual inspection, Yes trachea midline and Yes supple Chest Chest palpation & inspection: normal inspection of the chest Resp Effort & Inspection: normal respiratory effort Auscultation: clear to auscultation bilaterally, no crackles, no rales, no rhonchi and no wheezes Cardio Jugular venous distension: no JVD Palpation: normal PMI Rate: regular rate Rhythm: regular rhythm Heart sounds: S1 normal heart sound present, S2 normal heart sound present, no click, no gallops, no murmurs and no rubs Peripheral pulses: Peripheral pulses 2+ throughout GI Inspection: Yes normal to inspection Palpation (GI): Soft to palpation Auscultation: normal bowel sounds Skin General skin exam: no rashes or lesions noted Neuro General: patient oriented x3 Extrem General: Yes normal to inspection, No no pedal edema and No calf tenderness Psych Appearance: grossly normal Mental Status: mental status grossly normal Speech and movement: Normal speech and movement present Assessment & Plan Assessment & Plan (1) Atypical chest pain: Code(s): R07.89 - Other chest pain Category: Medical (2) Sinus tachycardia: Code(s): R00.0 - Tachycardia, unspecified Category: Medical (3) MAYCOL (obstructive sleep apnea): Code(s): G47.33 - Obstructive sleep apnea (adult) (pediatric) Category: Medical Plan 05/21/2024-echo study showed a low-normal EF between 50-55%, with no wall motion or valvular abnormality. 05/21/2024-patient underwent stress test which he was unable to complete due to shortness of breath. Patient attributes this to his recent viral illness which has been limiting his exercise. Given his ongoing squeezing chest pain, we will try to repeat another treadmill stress test. 05/21/2024-Holter study showed normal sinus rhythm with average heart rate at 88 beats per minute, with maximum heart rate 184 beats per minute. Previously for this, we plan to start on verapamil. However, patient never started this. Since there was some improvement in his symptoms, no med changes at this time. Patient states that recently when he went to his PCP's office visit, he had high blood pressure and was started on lisinopril. Patient states that his blood pressures has been with a normal limits at home and he checks this daily. His blood pressure today is within normal limits. Patient is hesitant on starting this. Have advised patient to start taking the medication if his blood pressures are over 130 over 80. Patient understands this. His recent LDL was elevated. Patient was started on Crestor and have recommended starting this. Have emphasized importance of CPAP therapy, heart healthy diet, regular exercise, losing weight, management of vascular risk factors, med compliance, and adequate hydration. We will follow-up in 1 year's time, sooner if needed. In the interim, patient will call us with any concerns or change in symptoms. This note was generated using voice recognition software. While every effort has been made to ensure accuracy and proper bisque kiln drawer, there may be occasional errors that could affect the content or meaning of the described symptoms. Orders: Orders CA stress test Today R07.89 - Other chest pain Coding Level of Care Code Est Pt Level 4 (05821) Complex EM visit Add On G2211 Diagnoses Atypical chest pain R07.89 Sinus tachycardia R00.0 MAYCOL (obstructive sleep apnea) G47.33 Time Spent (min) 34 Comment Time spent in reviewing the chart, test results, assessment, counseling and documentation.
== END 2024-07-09 14:21 | disposition home or self-care (01) ==
PROVIDERS: PCP Internal Medicine
DX: R07.89 Other chest pain (principal); R00.0 Tachycardia, unspecified; G47.33 Obstructive sleep apnea (adult) (pediatric)
CPT/HCPCS: 99214; G2211

== ENCOUNTER → 2024-07-09 13:00 | Outpatient (BNVA) | payer OTHER, SELFPAY | PROVIDERS: PCP Internal Medicine | DX: R07.89 Other chest pain (principal); R00.0 Tachycardia, unspecified; G47.33 Obstructive sleep apnea (adult) (pediatric) | CPT/HCPCS: 99212 ==

== ENCOUNTER → 2024-08-19 10:28 | Outpatient (REF) | payer OTHER, SELFPAY ==
--- NOTE | 2024-08-19 10:30 | CA_ITS ---
Acquisition Time: 2024-08-19 10:38:52 Total Exercise Time: 00:04:21 Test Indications: CP, ST, PVCS Medications: SEE H&P Protocol: TATI Max HR: 181 BPM 96% of Pred: 187 BPM Max BP: 160/100 mmHG Max Work Load: 4.6 METS Exercise stress test with exercise 4 mins 21 secs of Tati Protocol requesting to hold at Stage 1 due to SOB, achieving 95% MPHR, with reports of sevre SOB, without any arrythmias, with normotensive response to exercise. Without EKG changes meeting criteria for ischemia. In recovery, pt's breathing returned to baseline. Test reviewed with Dr. Baker. Referred By: Daniel Cervantes Electronically Signed By: Daniel Cervantes
== END ==
LOC: HO.CARD 10:28
PROVIDERS: PCP Internal Medicine
DX: R07.89 Other chest pain (principal)
CPT/HCPCS: 93017

== ENCOUNTER → 2024-08-19 10:30 | Outpatient (BNV) | payer OTHER, SELFPAY | PROVIDERS: PCP Internal Medicine | DX: R06.02 Shortness of breath (principal) | CPT/HCPCS: 93016; 93018 ==

== ENCOUNTER 2024-08-21 11:12 | Outpatient (AMB) | payer OTHER, SELFPAY ==
[2024-08-21 11:12] VITALS: BP 133/76; PULSE 82; RESP 16; TEMP 36.8; O2SAT 97; BMI 50.6
--- NOTE | 2024-08-21 11:12 | A.OFFPC_ITS ---
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 Required: No Accompanied by: Self / Same As Patient Allergies diphtheria, pertussis, tetanus vacc [Diphther,Pertuss,Tetanus Vac] Allergy (Unknown, Verified 08/21/24 13:17) UNKNOWN erythromycin base [ERYTHROMYCIN BASE] Allergy (Unknown, Verified 08/21/24 13:17) UNKNOWN DPT vac Allergy (Unknown, Uncoded 08/21/24 13:17) rash Erythromycin Allergy (Unknown, Uncoded 08/21/24 13:17) rash Medication List - Last Reconciled 08/21/24 by Urvashi Milan PA-C albuterol sulfate 90 mcg/actuation (Ventolin HFA) 1 puff inhalation Q4H PRN omeprazole 20 mg PO DAILY 90 days rosuvastatin (Crestor) 10 mg PO DAILY Tobacco use date assessed: 08/21/24 Dental Screening Dental Screen Date: 08/21/24 Did you have a dental visit in the last 12 months?: Yes Did you have a dental problem in the last 6 months where you did not have access to dental care?: No Was dental information given to patient?: Patient has dentist HPI follow up HPI Details The patient is a 34-year-old male presenting for follow-up on hypertension and assessment of new gastrointestinal and neurological symptoms. Hypertension was noted at a previous visit, and lisinopril was prescribed. However, home monitoring has shown blood pressure readings within the normal range, leading the patient to refrain from taking the medication. The patient mentions elevated readings during stressful occasions, but these are infrequent. The patient reports persistent headaches occurring upon standing, characterized by pressure in the back of the head, which resolves within a minute. This symptom occurs approximately 75% of the time upon standing. A prior head CT scan was normal. The patient suffers from GERD, which is being treated with omeprazole, and recently added concerns about episodes of tachycardia and severe abdominal bloating after meals within the past 1-1.5 months. Symptoms include a postprandial heart rate increase and considerable bloating, persisting for one to three hours post-ingestion. Regarding lifestyle modifications, the patient has recently adjusted dietary h abits to include healthier choices without symptom improvement. The patient denies new dietary triggers or significant stressors exacerbating GERD. Previous cardiac evaluations, such as a stress test and echocardiogram, were normal, although statin therapy was now deemed necessary for hyperlipidemia. Pending blood work and a planned abdominal ultrasound, alongside an H. pylori stool test, are expected to provide further information on the abdominal symptoms. Social History - Regular exercise: The patient has [place] exercising and dieting recently. - Nutrition/Diet: Patient eats salads, g rilled chicken, rice, and vegetables, with recent dietary adjustments not improving symptoms. - No history of familial colon cancer. - Denies any blood in stools. - Hydration: Drinks ample water daily. [facility] Medical History (Updated 08/21/24 @ 13:19 by Urvashi Milan PA-C) Obesity, morbid, BMI 50 or higher Hyperlipidemia LDL goal <100 GERD (gastroesophageal reflux disease) Abdominal discomfort Pressure in head Morbid obesity with BMI of 50.0-59.9, adult Atypical mole Perforated right tympanic membrane on examination Frequent headaches Hypertension Sinus tachycardia Palpitation Surgical History No pertinent past surgical history Family History Father No problems noted. Mother No problems noted. Social History Alcohol intake: current Alcohol intake frequency: a few times a month Patient Tobacco Use Status: Former Tobacco user Tobacco use type: Cigarette Years Smoked: 10 +/- , started at age 15, quit 2014, 2PPD service: No Current occupational status: employed Cognitive needs: No Hearing needs: No Vision needs: No Questionnaire PHQ-9 Over the last 2 weeks, how often have you been bothered by any of the following problems? 1. Little interest or pleasure in doing things: not at all 2. Feeling down, depressed, or hopeless: not at all 3. Trouble falling or staying asleep, or sleeping too much: not at all 4. Feeling tired or having little energy: not at all 5. Poor appetite or overeating: not at all 6. Feeling bad about yourself - or that you are a failure or have let yourself or your family down: not at all 7. Trouble concentrating on things, such as reading the newspaper or watching television: not at all 8. Moving or speaking so slowly that other people could have noticed. Or the opposite - being so fidgety or restless that you have been moving around a lot more than usual: not at all 9. Thoughts that you would be better off or of hurting yourself in some way: not at all Total score: 0 Depression Screening Interpretation: Negative Depression Screening Done: Yes 92245 - PHQ-9 Billing: Yes Source: Developed by Drs. Mahendra Laughlin, Sheryl Montalvo, Lizandro Su and colleagues, with an educational sonali from [employer]. Thrive Questionnaire Date Thrive assessed: 06/18/24 I am a: Patient What is your living situation today?: I have a steady place to live Within the past 12 months, did the food you bought not last and you didn't have the money to get more?: Never true Within the past 12 months, did you worry whether your food would run out before you got money to buy more?: Never true Do you have trouble paying for medicines?: No Do you have trouble getting transportation to medical appointments?: No Do you have trouble paying your heating and electricity bill?: No Do you have trouble taking care of your child, family member or friend?: No Do you have trouble with day-to-day activities such as bathing, preparing meals, shopping, managing finances, etc.?: No Are you currently unemployed and looking for a job?: No Are you interested in more education?: No THRIVE Score: 0 AUDIT C Alcohol Use Questionnaire (AUDIT-C) 1. How often do you have a drink containing alcohol?: Monthly or less 2. How many drinks containing alcohol do you have on a typical day when you are drinking?: 1 or 2 3. How often do you have six or more drinks on one occasion?: Never Total Score: 1 Score Reviewed/Action Taken: No RICH-7 AMB Questionnaire RICH-7 Date RICH - 7 assessed: 06/18/24 Feeling nervous, anxious, or on edge: 1 = Several days Not being able to stop or control worryin = Several days Worrying too much about different things: 0 = Not at all Trouble relaxin = Not at all Being so restless that it is hard to sit still: 0 = Not at all Becoming easily annoyed or irritable: 0 = Not at all Feeling afraid as if something awful might happen: 0 = Not at all Total RICH-7 score (0-4 normal; 5-9 mild; 10-14 moderate; 15-21 severe): 2 Source: Developed by Drs. Mahendra Laughlin, Sheryl Montalvo, Lizandro Su and colleagues, with an educational sonali from [employer]. RICH-7 Assessment Billing RICH-7 Assessment Tool: RICH-7 Assessment 41474 Review of Systems Const Details: - Cardiovascular: Reports postprandial tachycardia. - Gastrointestinal: Reports significant bloating and discomfort post meals, denies any blood in stools. - Neurological: Reports headaches associated with standing. - General: Reports good adherence to hydration. Physical exam (Primary Care) Vital Signs: Last Vital Signs Temp 98.2 F 08/21/24 11:12 Pulse 82 08/21/24 11:12 Resp 16 08/21/24 11:12 BP 133/76 08/21/24 11:12 Pulse Ox 97 08/21/24 11:12 Oxygen Delivery Method Room Air 08/21/24 11:12 Care Plan Goal for BP management: <140/90 at Goal BMI result Body Mass Index 50.6 BMI Assessment/Plan discussion: High BMI High, discussed plan: lifestyle, weight reduction, dietary, physical activity and alcohol moderation Tobacco/Smoking Status: Tobacco use Status Tobacco use date assessed 08/21/24 08/21/24 11:14 Patient Tobacco Use Status Former Tobacco user 08/21/24 11:14 Tobacco use type Cigarette 08/21/24 11:14 PHQ-9: PHQ-9 Score PHQ-9: Total score 0 08/21/24 11:22 Depression Screening Interpretation: Negative Thrive Assessment: Date of Thrive Assessment Date Thrive assessed 06/18/24 08/21/24 11:14 Const Other: Appearance: Alert. Oriented X3. No acute distress. Head: Normal external exam. Normocephalic. Atraumatic. Eyes: Pupils are equal, round, and reactive to light. Extraocular movements intact. Conjunctiva and sclera normal. Eyelids normal. Ears: External auditory canal normal. Tympanic membranes normal. Throat: Pharynx normal. Uvula midline. Moist mucous membranes. Neck: Normal inspection. Neck supple. Full range of motion. No adenopathy. Thyroid Normal. No meningeal signs. No neck mass noted. Cardiovascular: Normal heart rate and rhythm. Heart sound normal. No murmurs noted. Pulses normal throughout. Respiratory: No respiratory distress. Painless inspiration. Breath sounds normal. No wheezes/rales/rhonchi noted. Chest nontender. No accessory muscle usage noted or decreased air movement noted. Abdomen: Soft and nontender. Bowel sounds normal in all 4 quadrants. No distention noted. No organomegaly noted. No visible injury noted. No pain upon palpation. Back: No costovertebral angle tenderness. Full range of motion noted. No pain upon percussion of kidneys. Skin: Skin warm and dry. Normal skin color. Normal skin turgor. No rashes/lesions/lacerations noted. Extremities: No lower extremity edema. Extremities exhibit normal range of motion. Extremities nontender. Neuro: Oriented X 3. No motor deficit. No sensory deficit. Reflexes normal. Results Reviewed Results Reviewed: - Stress Test: Normal - Echocardiogram (May): Normal; ejection fraction at 50-55% - Head CT: Normal Coding Level of Care Code Est Pt Level 4 (70516) Complex EM visit Add On G2211 Diagnoses Hypertension I10 GERD (gastroesophageal reflux disease) K21.9 Pressure in head R51.9 Hyperlipidemia LDL goal <100 E78.5 Abdominal discomfort R10.9 Obesity, morbid, BMI 50 or higher E66.01 Additional Codes RICH-7 Assessment Billing - RICH-7 Assessment Tool: RICH-7 Assessment 41091 ([id number]) PHQ-9 - 77263 - PHQ-9 Billing: Yes ([id number]) Assessment & Plan Assessment & Plan (1) Hypertension: Code(s): I10 - Essential (primary) hypertension Category: Medical Plan: Monitoring of home blood pressure is ongoing, and lisinopril usage is currently paused due to normal readings. Stress-induced hypertension should still be watched carefully. Condition is chronic and stable continue to monitor. (2) GERD (gastroesophageal reflux disease): Code(s): K21.9 - Gastro-esophageal reflux disease without esophagitis Category: Medical Plan: Omeprazole continues for GERD symptoms. Upcoming tests include an abdominal ultrasound and H. pylori stool test for further evaluation of symptoms. Condition is chronic and stable continue to monitor. (3) Pressure in head: Code(s): R51.9 - Headache, unspecified Category: Medical Plan: Neurology referral is made for further assessment of headaches upon standing. Follow-up with neurology will be scheduled by the patient. Condition is chronic and stable continue to monitor. (4) Hyperlipidemia LDL goal <100: Code(s): E78.5 - Hyperlipidemia, unspecified Category: Medical Plan: Crestor (statin) therapy to be taken at night. Patient provided guidance on potential side effects and advised to increase water intake. Condition is chronic and stable continue to monitor. (5) Abdominal discomfort: Code(s): R10.9 - Unspecified abdominal pain Category: Medical Plan: Further evaluation with abdominal ultrasound and H. pylori stool test scheduled to investigate symptoms. Blood work is advised pending completion. Condition is chronic and stable continue to monitor. (6) Obesity, morbid, BMI 50 or higher: Code(s): E66.01 - Morbid (severe) obesity due to excess calories Category: Medical Plan: Patient to continue exercising improving diet and exercise regimen. Condition is chronic and stable continue to monitor Plan Plan Patient was informed and verbally consented to the use of an ambient scribe for clinic note documentation during this visit. 1. Hypertension Monitoring of home blood pressure is ongoing, and lisinopril usage is currently paused due to normal readings. Stress-induced hypertension should still be watched carefully. 2. Gastroesophageal Reflux Disease Omeprazole continues for GERD symptoms. Upcoming tests include an abdominal ultrasound and H. pylori stool test for further evaluation of symptoms. 3. Headaches, Unspecified Neurology referral is made for further assessment of headaches upon standing. Follow-up with neurology will be scheduled by the patient. 4. Hyperlipidemia Crestor (statin) therapy to be taken at night. Patient provided guidance on potential side effects and advised to increase water intake. 5. Abdominal Bloating And Tachycardia Postprandially Further evaluation with abdominal ultrasound and H. pylori stool test scheduled to investigate symptoms. Blood work is advised pending completion. During this visit, I reviewed with the patient the importance of consistent monitoring and potential triggers of hypertension, opting to forego lisinopril for now based on home readings. We discussed effective GERD management strategies with existing omeprazole therapy, scheduling further testing (abdominal ultrasound, H. pylori stool test) to explore gastrointestinal symptoms more thoroughly. I referred the patient to neurology for a specialized assessment of headaches experienced upon standing. We examined the patient's lipid profile, and I initiated Crestor therapy, advising it be taken at night. Potential side effects and hydration were elaborated upon to ensure patient understanding and adherence. Finally, we addressed the need for routine blood work and stool tests to rule out bacterial or other chronic causes of abdominal distress, with a GI consultation set pending results. I clarified follow-up timelines, diagnostic results expectations, and when to seek medical advice promptly, ensuring the patient left with clear care instructions. Orders: Orders H pylori Ag Stool Today R10.9 - Unspecified abdominal pain US abdomen complete Today R10.9 - Unspecified abdominal pain Referrals Gastroenterology Referral R10.9 - Unspecified abdominal pain Neurology Referral R51.9 - Headache, unspecified Medications: Refilled albuterol sulfate 90 mcg/actuation (Ventolin HFA) 1 puff inhalation Q4H PRN 8.5 grams 1RF bronchospasm Patient Instructions: - Continue measuring blood pressure at home; take lisinopril only if advised based on consistent high readings. - Follow your GERD regimen with omeprazole; note and avoid dietary triggers. - Complete the recommended abdominal ultrasound and H. pylori stool test. - Schedule a neurology appointment to evaluate headaches following standing. - Begin taking Crestor at night while drinking plenty of water daily. - Attempt to complete the outstanding blood work and refrain from eating 12 hours prior for accurate fasting results. - Follow up with GI if advised after completing initial tests and blood work. - Maintain healthy dietary choices and exercise; track changes in symptoms. - Six-month follow-up unless lab abnormalities or other issues arise. - Contact physician if experiencing severe symptoms or further concerns regarding overall health.
== END 2024-08-21 11:50 | disposition home or self-care (01) ==
LOC: HO.HMCSH 11:12
PROVIDERS: PCP Internal Medicine; Visit Provider Physician Assistant Medical
DX: I10 Essential (primary) hypertension (principal); K21.9 Gastro-esophageal reflux disease without esophagitis; R51.9 Headache, unspecified; E78.5 Hyperlipidemia, unspecified; R10.9 Unspecified abdominal pain; E66.01 Morbid (severe) obesity due to excess calories

== ENCOUNTER → 2024-08-21 11:12 | Outpatient (BNVA) | payer OTHER, SELFPAY | PROVIDERS: PCP Internal Medicine; Visit Provider Physician Assistant Medical | DX: I10 Essential (primary) hypertension (principal); R51.9 Headache, unspecified; K21.9 Gastro-esophageal reflux disease without esophagitis; E78.5 Hyperlipidemia, unspecified; R10.9 Unspecified abdominal pain; E66.01 Morbid (severe) obesity due to excess calories; Z68.43 Body mass index [BMI] 50.0-59.9, adult; Z79.899 Other long term (current) drug therapy | CPT/HCPCS: 96127; 99212 ==

== ENCOUNTER 2024-10-10 11:02 | Outpatient (REF) | payer OTHER, SELFPAY ==
--- NOTE | ~2024-10-10 | US_ITS ---
EXAMINATION: US ABDOMEN COMPLETE CLINICAL INFORMATION: Unspecified abdominal pain.. COMPARISON: Correlated to CT dated December 16, 2019. TECHNIQUE: Real-time ultrasound of the abdomen using grayscale technique. FINDINGS: Limited by patient's body habitus. PANCREAS: No gross peripancreatic fluid collections. ABDOMINAL AORTA: Limited examination demonstrated no gross abnormal diameter. INFERIOR VENA CAVA: Visualized portions are normal. LIVER: Liver measures 18 cm. The liver contour is normal. Increased echotexture. No solid or cystic lesion detected by the technologist. No intrahepatic biliary ductal dilatation. GALLBLADDER: Fluid-filled. No pericholecystic fluid collection or gallbladder wall thickening. No distention. COMMON BILE DUCT: 3 mm. RIGHT KIDNEY: 11 cm. Normal echotexture. Normal renal cortical thickness. No hydronephrosis. No gross solid or cystic lesion. . LEFT KIDNEY: 11 cm. Normal echotexture. Normal renal cortical thickness. No hydronephrosis. No gross solid or cystic lesion. . SPLEEN: 12 cm. No focal lesion.. FREE FLUID: None. US/US abdomen complete IMPRESSION: Hepatomegaly and steatosis. No cholelithiasis. No gross choledocholithiasis. No hydronephrosis. Up to normal spleen size. No ascites. Electronically signed by: Anderson Pan MD 10/10/2024 11:51 AM EDT
--- OUTSIDE RECORDS SUMMARY | 2024-10-10 11:53 | XMS_ITS | Encounter Summary ---
Author Organization [facility] Address [address] [place] [id number] Phone Care Team Providers Care Overedge Machine Operator Name Role Phone Mahendra Delacruz DO Primary Care Provider Pcp, Unknown Primary Care Provider Unavailabl e Encounter Details Date Type Department Care Team (Latest Contact Info) Description 03/22/2017 Ancillary Orders Virtual Department [address] [place] [id number] Mitchel Brooks MD [address] [facility] [address] [place] [address] [email or web address] Uncomplicated asthma, unspecified asthma severity, unspecified whether persistent Social History Tobacco Use Types Packs/Day Years Used Date Smoking Tobacco: Former Smokeless Tobacco: Former Alcohol Use Standard Drinks/Week Comments No 0 (1 standard drink = 0.6 oz pur e alcohol) Sex and Gender Information Value Date Recorded Sex Assigned at Male 03/27/2017 9:38 AM EST Legal Sex Male 9:00 PM EDT Gender Identity Male 03/27/2017 9:38 AM EST Sexual Orientation Straight 03/27/2017 9: 38 AM EST documented as of this encounter Plan of Treatment Not on file documented as of this encounter Visit Diagnoses Diagnosis Uncomplicated asthma, unspecified asthma severity, unspecified whether persistent documented in this encounter Additional Health Concerns Infection Onset Date Last Indicated Resolved Time CoV-Risk 04/08/2024 04/08/2024 04/19/2024 1:22 AM EST documented as of this encounter Care Teams Overedge Machine Operator Relationship Specialty Start Date End Date Mahendra Delacruz DO [address] [place] [id number] PCP - General Internal Medicine 02/19/17 06/19/24 Pcp, Unknown PCP - General 06/20/24 documented as of this encounter Additional Source Comments The information contained in this document represents components of the legal health record. It is not the complete legal health record.[facility]
== END 2024-10-10 11:03 | disposition home or self-care (01) ==
LOC: HO.US 11:02
PROVIDERS: PCP Internal Medicine; Visit Provider Physician Assistant Medical
DX: R10.9 Unspecified abdominal pain (principal)
CPT/HCPCS: 76700

== ENCOUNTER → 2024-10-10 11:04 | Outpatient (BNV) | payer OTHER, SELFPAY | PROVIDERS: PCP Internal Medicine; Visit Provider Radiology Diagnostic Radiology | DX: R16.0 Hepatomegaly, not elsewhere classified (principal) | CPT/HCPCS: 76700 ==

== ENCOUNTER 2024-11-05 11:17 | Outpatient (AMB) | payer OTHER, SELFPAY ==
--- NOTE | 2024-11-05 11:19 | A.OFFVIS_ITS ---
Vital Signs 11/05/24 11:20 Height 5 ft 9.5 in Weight 340 lb BMI 49.5 BP 146/85 H Blood Pressure Location Lt brachial Position Sitting Pulse 105 H Oxygen Delivery Method Room Air Intake Visit Reasons: Abd pain Intake Note: Patient new consult for abdominal pain. Patient cc: abdominal pain with bloating, heartburn, dizziness with fatigue. Denies any other GI issues for today visit. Global Category Manager Required: No Accompanied by: Self / Same As Patient Allergies diphtheria, pertussis, tetanus vacc (Diphther,Pertuss,Tetanus Vac) Allergy (Unknown, Verified 11/05/24 11:19) UNKNOWN erythromycin base (ERYTHROMYCIN BASE) Allergy (Unknown, Verified 11/05/24 11:19) UNKNOWN DPT vac Allergy (Unknown, Uncoded 08/21/24 13:17) rash Erythromycin Allergy (Unknown, Uncoded 08/21/24 13:17) rash Medication List - Last Reconciled 11/05/24 by Neida Carpenter, KARTHIK albuterol sulfate 90 mcg/actuation (Ventolin HFA) 1 puff inhalation Q4H PRN cetirizine (Zyrtec) 10 mg PO DAILY PRN omeprazole 20 mg PO DAILY HPI HPI Abd pain: Details: Patient is a 34-year-old male with PMH of obesity, hyperlipidemia, hypertension and GERD. Referred by PCP for further evaluation of abdominal pain Leif presents with longstanding acid reflux that has persisted for at least five years. Over the past six to eight months, he has experienced worsening symptoms, including bloating, upper abdominal pain, and burning sensations that occur almost every time he eats. Pain is described as diffuse in the upper abdomen, lasting for hours postprandially, and sometimes accompanied by bubbling sensations. His symptoms are severe and have necessitated daily use of omeprazole, with limited relief. Attempts to titrate the omeprazole dosing, both increasing to twice daily and decreasing to every other day, have resulted in worsened symptoms including food feeling stuck in the epigastric region or rebound heartburn. Reflux symptoms are also exacerbated by late-night eating or laying down shortly after meals. He reports tachycardia episodes postprandially with heart rates increasing to the 120s to 130s, lasting 1?2 hours, and consults a senior it architect for this issue. There are associated symptoms of epigastric tenderness, worsening reflux when omeprazole is held, but no dysphagia, regurgitation, constipation, diarrhea, or melena/hematochezia. He denies any relief from dietary changes or [id number] medications, including simethicone (Gas-X). In the past month, an ultrasound revealed fatty liver and mild hepatomegaly in association with metabolic syndrome features. History of tachycardia managed by a senior it architect, asthma with CPAP usage for sleep apnea, and a history of shortness of breath. Patient denies: fever/chills, n/v, appetite changes, regurgitation, dysphasia or unintentional wt loss. 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 Attempts to walk daily with a goal of 6,000 steps. - family hx as below - personal hx of CA -tolerated anesthesia in the past denies difficulty. [facility] Medical History (Updated 11/05/24 @ 12:09 by Neida Carpenter CNP) Epigastric pain Fatty liver Obesity, morbid, BMI 50 or higher Hyperlipidemia LDL goal <100 GERD (gastroesophageal reflux disease) Abdominal discomfort Pressure in head Morbid obesity with BMI of 50.0-59.9, adult Atypical mole Perforated right tympanic membrane on examination Frequent headaches Hypertension Sinus tachycardia Palpitation Surgical History (Updated 11/05/24 @ 11:24 by Blaire Alston) History of placement of ear tubes Hx of tooth extraction No pertinent past surgical history Family History Father No problems noted. Mother No problems noted. Social History Alcohol intake: current Alcohol intake frequency: a few times a month Patient Tobacco Use Status: Former Tobacco user Tobacco use type: Cigarette Years Smoked: 10 +/- , started at age 15, quit 2014, 2PPD service: No Current occupational status: employed Cognitive needs: No Hearing needs: No Vision needs: No Review of Systems Const Reports as per HPI ENT Reports as per HPI Card Reports as per HPI Resp Reports as per HPI GI Reports as per HPI Reports as per HPI Physical Exam Vital Signs: Last Vital Signs Pulse 105 H 11/05/24 11:20 BP 146/85 H 11/05/24 11:20 Oxygen Delivery Method Room Air 11/05/24 11:20 BMI result Body Mass Index 49.5 Const General: healthy appearing, no acute distress and well developed Nutritional Appearance: obese Orientation/consciousness: patient oriented x3 HEENT Head: Yes normal to inspection, Yes normocephalic and Yes atraumatic Face and sinus: Yes normal facial exam Eyes General: appearance normal, both eyes and all related structures Neck Neck: Yes normal visual inspection Resp Effort & Inspection: normal respiratory effort, able to speak in complete sentences, no tracheal deviation and symmetric chest movement Auscultation: clear to auscultation bilaterally Cardio Jugular venous distension: no JVD Rate: regular rate and tachycardic Rhythm: regular rhythm Heart sounds: S1 normal heart sound present, S2 normal heart sound present, no gallops and no murmurs GI Inspection: Yes normal to inspection, No distended, Yes obesity and Yes striae Palpation (GI): Soft to palpation, not firm, nontender and No hepatosplenomegaly present Auscultation: normal bowel sounds Neuro General: patient oriented x3 Gait exam (Neuro): Normal gait present Psych Appearance: grossly normal Mental Status: mental status grossly normal Speech and movement: Normal speech and movement present Affect: normal affect Attitude: cooperative Thought process: Normal thought process present Thought content: Normal thought content present Insight: Good insight present (Psych) Judgement: Good judgement present (Psych) Results Reviewed Results Reviewed: Date of Service: 10/10/24 Procedure(s): US abdomen complete Accession Number(s): [id number] cc: Urvashi Milan PA-C; Ricki Staples MD~ EXAMINATION: US ABDOMEN COMPLETE CLINICAL INFORMATION: Unspecified abdominal pain.. COMPARISON: Correlated to CT dated December 16, 2019. TECHNIQUE: Real-time ultrasound of the abdomen using grayscale technique. FINDINGS: Limited by patient's body habitus. PANCREAS: No gross peripancreatic fluid collections. ABDOMINAL AORTA: Limited examination demonstrated no gross abnormal diameter. INFERIOR VENA CAVA: Visualized portions are normal. LIVER: Liver measures 18 cm. The liver contour is normal. Increased echotexture. No solid or cystic lesion detected by the technologist. No intrahepatic biliary ductal dilatation. GALLBLADDER: Fluid-filled. No pericholecystic fluid collection or gallbladder wall thickening. No distention. COMMON BILE DUCT: 3 mm. RIGHT KIDNEY: 11 cm. Normal echotexture. Normal renal cortical thickness. No hydronephrosis. No gross solid or cystic lesion. . LEFT KIDNEY: 11 cm. Normal echotexture. Normal renal cortical thickness. No hydronephrosis. No gross solid or cystic lesion. . SPLEEN: 12 cm. No focal lesion.. FREE FLUID: None. US/US abdomen complete IMPRESSION: Hepatomegaly and steatosis. No cholelithiasis. No gross choledocholithiasis. No hydronephrosis. Up to normal spleen size. No ascites. Date of Service: 08/19/24 Procedure(s): CA stress test Accession Number(s): [id number] cc: Daniel Cervantes NP~ Acquisition Time: 2024-08-19 10:38:52 Total Exercise Time: 00:04:21 Test Indications: CP, ST, PVCS Medications: SEE H&P Protocol: MAURY Max HR: 181 BPM 96% of Pred: 187 BPM Max BP: 160/100 mmHG Max Work Load: 4.6 METS Exercise stress test with exercise 4 mins 21 secs of Maury Protocol requesting to hold at Stage 1 due to SOB, achieving 95% MPHR, with reports of sevre SOB, without any arrythmias, with normotensive response to exercise. Without EKG changes meeting criteria for ischemia. In recovery, pt's breathing returned to baseline. Test reviewed with Dr. Baker. Referred By: Daniel Cervantes Electronically Signed By: Daniel Cervantes Assessment & Plan Assessment & Plan (1) Epigastric pain: Code(s): R10.13 - Epigastric pain Category: Medical Plan: Dyspeptic, acid reflux-related, and epigastric symptoms with food intolerance. DDX: undermanaged GERD VS peptic ulcer disease secondary to H. pylori. 10/10/24 US rule out pancreatobiliary involvement. Additional Testing: - Stool test for H. pylori after holding omeprazole for two weeks (bridge medication: sucralfate 1 g twice daily PRN during this period). -Upper endoscopy -consider upper GI series if symptoms persist at follow up and EGD still pending. Medication Management: -Discontinue omeprazole temporarily; initiate sucralfate during testing. -Resume anti-reflux therapy after H. pylori test completion with pantoprazole 40 mg QD (empty stomach 30?60 min pre-meal). Education on GERD prevention : -Advised against heavy meals; encouraged small, frequent meals instead of large ones. - Instructed to remain upright for 2?3 hours after eating. - Advised to avoid late-night meals, spicy foods, caffeine, alcohol, known dietary triggers, and tight-fitting clothing. - Emphasis placed on gradual implementation of lifestyle changes to improve adherence and symptom control. (2) Fatty liver: Code(s): K76.0 - Fatty (change of) liver, not elsewhere classified Category: Medical Plan: Diagnosed via ultrasound and associated features of metabolic syndrome; history of difficulty losing weight with prior dietary changes. Additional Testing: Bloodwork expanded by PCP to include liver enzymes, hepatitis panel, and metabolic assessments (fasting labs). Medication Management: No direct medication changes currently. Evaluate lab findings first. Lifestyle Recommendations: Referral to corncob pipes assembler for tailored dietary management and weight loss strategy; promote balanced diet (whole foods, low- fat, high-fiber), minimize packaged/preserved foods. Ensure hydration (romi er/zero-sugar beverages). Follow-Up: Reassess liver function after laboratory results available; monitor for improvement after dietary modifications. (3) Morbid obesity with BMI of 50.0-59.9, adult: Code(s): E66.01 - Morbid (severe) obesity due to excess calories; Z68.43 - Body mass index [BMI] 50.0-59.9, adult Category: Medical Plan: BMI 49.5. Risk reviewed Plan as above Discussion on lifestyle modifications to promote healthy weight: -Well-balanced diet -Adequate hydration with water -150 minutes of moderate intensity exercise per week (4) Sinus tachycardia: Code(s): R00.0 - Tachycardia, unspecified Category: Medical Plan: Normal stress test 08/19/2024. Established with Cardiology with plans for follow up in 1 year ( June 2025) Plan Follow-up in 8 weeks or sooner as needed Time: I spent a total of 45 minutes on the date of encounter which includes: Preparing to see the patient (reviewed previous documentation, test results and medical history) Performing a medically appropriate exam and/or evaluation Ordering medications, tests, and procedures Documenting clinical information in the health record Orders: Orders Hepatitis A,B,C Profile Today K76.0 - Fatty (change of) liver, not elsewhere classified Ferritin Today K76.0 - Fatty (change of) liver, not elsewhere classified Prothrombin Time INR Today K76.0 - Fatty (change of) liver, not elsewhere classified Hepatitis A IgG Today K76.0 - Fatty (change of) liver, not elsewhere classified HIV Ab/Ag Today K76.0 - Fatty (change of) liver, not elsewhere classified Referrals Nutrition/Dietitian Referral E66.01 - Morbid (severe) obesity due to excess calories, K76.0 - Fatty (change of) liver, not elsewhere classified, Z68.43 - Body mass index [BMI] 50.0-59.9, adult Medications: New pantoprazole Take 1 tablet daily. Best taken on an empty stomach, 30 minutes before food 40 mg PO QAM 90 tabs 1RF sucralfate Take on tablet two times daily as needed. Take an empty stomach. Avoid antacids within 30 minutes. 1 g PO BID 90 tabs 1RF Discontinued omeprazole Discontinued Reason: Doctor's Order 20 mg PO DAILY 90 caps 1RF Coding Level of Care Code New Pt New Pt Level 4 (80648) Patient Type New Diagnoses Epigastric pain R10.13 Fatty liver K76.0 Morbid obesity with BMI of 50.0-59.9, adult E66.01; Z68.43 Sinus tachycardia R00.0
[2024-11-05 11:20] VITALS: BP 146/85; PULSE 105; BMI 49.5
--- OUTSIDE RECORDS SUMMARY | 2024-11-05 12:49 | XMS_ITS | Encounter Summary ---
Author Organization [facility] Address [address] [place] [id number] Phone Care Team Providers Care Drill Setup Operator Name Role Phone Mahendra Delacruz DO Primary Care Provider Pcp, Unknown Primary Care Provider Unavailabl e Encounter Details Date Type Department Care Team (Latest Contact Info) Description 03/22/2017 Ancillary Orders Virtual Department [address] [place] [id number] Mitchel Brooks MD [address] [facility] [address] [place] [address] [email or web address] Uncomplicated asthma, unspecified asthma severity, unspecified [...] documented as of this encounter Care Teams Drill Setup Operator Relationship Specialty Start Date End Date Mahendra Delacruz DO [address] [place] [id number] PCP - General Internal Medicine 02/19/17 06/19/24 Pcp, Unknown PCP - General 06/20/24 documented as of this encounter Additional Source Comments The information contained in this document represents components of the legal health record. It is not the complete legal health record.[facility]
== END 2024-11-05 12:12 | disposition home or self-care (01) ==
PROVIDERS: PCP Internal Medicine; Visit Provider Nurse Practitioner Family
DX: R10.13 Epigastric pain (principal); K76.0 Fatty (change of) liver, not elsewhere classified; E66.01 Morbid (severe) obesity due to excess calories; Z68.43 Body mass index [BMI] 50.0-59.9, adult; R00.0 Tachycardia, unspecified
CPT/HCPCS: 99204

== ENCOUNTER → 2024-11-05 11:17 | Outpatient (BNVA) | payer OTHER, SELFPAY | PROVIDERS: PCP Internal Medicine; Visit Provider Nurse Practitioner Family | DX: R10.13 Epigastric pain (principal); K76.0 Fatty (change of) liver, not elsewhere classified; E66.01 Morbid (severe) obesity due to excess calories; Z68.43 Body mass index [BMI] 50.0-59.9, adult; R00.0 Tachycardia, unspecified | CPT/HCPCS: 99202 ==

== ENCOUNTER 2025-01-15 13:24 | Outpatient (AMB) | payer OTHER, SELFPAY ==
[2025-01-15 13:29] VITALS: BP 130/90; PULSE 105; O2SAT 97; BMI 51.7
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
--- OUTSIDE RECORDS SUMMARY | 2025-01-15 17:02 | XMS_ITS | Encounter Summary ---
Author Organization [facility] Address [address] [place] [phone] Phone Care Team Providers Care Bank Vault Clerk Name Role Phone Mahendra Delacruz DO Primary Care Provider Pcp, Unknown Primary Care Provider Unavailabl e Encounter Details Date Type Department Care Team (Late st Contact Info) Description 11/21/2022 Procedure Pass [place] Admitting Dept - Virtual Department [address] [place] [address] Social History Tobacco Use Types Packs/Day Years Used Date Smoking Tobacco: Former Smokeless Tobacco: Former Quit: 2014 Alcohol Use Standard Drinks/Week Comments Not Currently 0 (1 standard drink = 0.6 oz pure alcohol) Few drinks, few days per week, depends on the day Education Answer Date Recorded Are you interested in more education? Not on renee e 07/15/2022 Are you concerned about learning? Not on file 07/15/2022 No 07/15/2022 No 07/15/2022 Digital Access Answer Date Recorded No 08/15/2022 No 08/15/2022 Reliable internet access at home? Not on file 08/15/2022 Device with a working camera? 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 file Not on file Not on file documented as of this encounter Plan of Treatment Not on file documented as of this encounter Visit Diagnoses Not on filedocumented in this encounter Additional Health Concerns Infection Onset Date Last Indicated Resolved Time CoV-Risk 04/08/2024 04/08/2024 04/19/2024 1:22 AM EST documented as of this encounter Care Teams Bank Vault Clerk Relationship Specialty Start Date End Date Mahendra Delacruz DO [address] [place] [id number] PCP - General Internal Medicine 02/19/17 06/19/24 Pcp, Unknown PCP - General 06/20/24 documented as of this encounter Additional Source Comments The information contained in this document represents components of the legal health record. It is not the complete legal health record.[facility]
--- OUTSIDE RECORDS SUMMARY | 2025-01-15 17:02 | XMS_ITS | Encounter Summary ---
Author Organization [facility] Address [address] [place] [phone] Phone Care Team Providers Care Riding Silks Custodian Name Role Phone Mahendra Delacruz DO Primary Care Provider Pcp, Unknown Primary Care Provider Unavailabl e Encounter Details Date Type Department Care Team (Late st Contact Info) Description 04/06/2022 Procedure Pass Echo Lab [address] [place] [address] Social History Tobacco Use Types Packs/Day Years Used Date Smoking Tobacco: Former Smokeless Tobacco: Former Alcohol Use Standard Drinks/Week Comments Yes 2 (1 standard drink = 0.6 oz pur [...] documented as of this encounter Care Teams Riding Silks Custodian Relationship Specialty Start Date End Date Mahendra Delacruz DO [address] [place] [phone] PCP - General Internal Medicine 02/19/17 06/19/24 Pcp, Unknown PCP - General 06/20/24 documented as of this encounter Additional Source Comments The information contained in this document represents components of the legal health record. It is not the complete legal health record.[facility]
--- OUTSIDE RECORDS SUMMARY | 2025-01-15 17:02 | XMS_ITS | Encounter Summary ---
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 Wish to be (Past 1 Month) No 11/19/2022 10:19 AM Alis Lewis RN 2. Non-Specific Active Suicidal Thoughts (Past 1 Month) No 11/19/2022 10:19 AM Alis Lewis RN 6. Suicidal Behavior (Lifetime) No 11/19/2022 10:19 AM Alis Lewis RN documented as of this encounter Plan of Treatment Not on file documented as of this encounter Visit Diagnoses Not on filedocumented in this encounter Additional Health Concerns Infection Onset Date Last Indicated Resolved Time CoV-Risk 04/08/2024 04/08/2024 04/19/2024 1:22 AM EST documented as of this encounter Care Teams Neighborhood Planner Relationship Specialty Start Date End Date Mahendra Delacruz DO [address] [place] [phone] PCP - General Internal Medicine 02/19/17 06/19/24 Pcp, Unknown PCP - General 06/20/24 documented as of this encounter Additional Source Comments The information contained in this document represents components of the legal health record. It is not the complete legal health record.[facility]
--- OUTSIDE RECORDS SUMMARY | 2025-01-15 17:02 | XMS_ITS | Encounter Summary ---
Author Organization [facility] Address [address] [place] [phone] Phone Care Team Providers Care Document Photographer Name Role Phone Mahendra Delacruz DO Primary Care Provider Pcp, Unknown Primary Care Provider Unavailabl e Encounter Details Date Type Department Care Team (Late st Contact Info) Description 11/17/2022 Procedure Pass [facility], Ct Scan - [address] [address] Social History Tobacco Use Types Packs/Day Years Used Date Smoking Tobacco: Former Smokeless Tobacco: Former Alcohol Use Standard Drinks/Week Comments Yes 2 (1 standard drink = 0.6 oz pur e alcohol) Education Answer Date Recorded Are you interested [...] AM EST documented as of this encounter Functional Status * Calculated C-SSRS Risk Score (Lifetime/Recent) Answer Date of Assessment Author No Risk Indicated 11/19/2022 10:19 AM EDT CadCassy lopez RN * [place] Suicide Severity Rating Scale (Screener/Recent Self-Report) Question [...] documented as of this encounter Care Teams Document Photographer Relationship Specialty Start Date End Date Mahendra Delacruz DO [address] [place] [phone] PCP - General Internal Medicine 02/19/17 06/19/24 Pcp, Unknown PCP - General 06/20/24 documented as of this encounter Additional Source Comments The information contained in this document represents components of the legal health record. It is not the complete legal health record.[facility]
--- OUTSIDE RECORDS SUMMARY | 2025-01-15 17:02 | XMS_ITS | Encounter Summary ---
Author Organization [facility] Address [address] [place] [phone] Phone Care Team Providers Care Interior Design Teacher Name Role Phone Mahendra Delacruz DO Primary Care Provider Pcp, Unknown Primary Care Provider Unavailabl e Encounter Details Date Type Department Care Team (Late st Contact Info) Description 10/21/2019 Procedure Pass [facility], Ct Scan - [address] [address] Social History Tobacco Use Types Packs/Day Years [...] documented as of this encounter Care Teams Interior Design Teacher Relationship Specialty Start Date End Date Mahendra Delacruz DO [address] [place] [phone] PCP - General Internal Medicine 02/19/17 06/19/24 Pcp, Unknown PCP - General 06/20/24 documented as of this encounter Additional Source Comments The information contained in this document represents components of the legal health record. It is not the complete legal health record.[facility]
--- OUTSIDE RECORDS SUMMARY | 2025-01-15 17:02 | XMS_ITS | Encounter Summary ---
Author Organization [facility] Address [address] [place] [address] [place] [address] Phone Care Team Providers Care Teacher Selection Specialist Name Role Phone Mahendra Delacruz DO Primary Care Provider Pcp, Unknown Primary Care Provider Unavailabl e Encounter Details Date Type Department Care Team (Late st Contact Info) Description 03/26/2024 Procedure Pass [facility], Ct Scan - [address] [address] Social History Tobacco Use Types Packs/Day Years Used Date Smoking Tobacco: Former Smokeless Tobacco: Former Quit: 2014 Alcohol Use Standard Drinks/Week Comments Yes 0 (1 standard drink = 0.6 oz [...] with a working camera? Not on file Intimate Partner Violence Answer Date R ecorded Are you denied basic needs s uch as food, clothing, or medical care? No 03/26/2024 In the past 12 months have y ou been in a relationship with a person who hurts, threatens, or tries to control you? No 03/26/2024 Are you denied basic needs s uch as food, clothing, or medical care? No 03/26/2024 In the past 12 months have y ou been in a relationship with a person who hurts, threatens, or tries to control you? 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 Wish to be (Past 1 Month) No 025 4:50 PM Viky Narvaez, SREEKANTH 2. Non-Specific Active Suici claritza Thoughts (Past 1 Month) No 03/26/2024 4:50 PM Sekou Narvaez, SREEKANTH 6. Suicidal Behavior (Lifetime) No 5 4:50 PM Viky Narvaez, SREEKANTH documented as of this encounter Plan of Treatment Not on file documented as of this encounter Visit Diagnoses Not on filedocumented in this encounter Additional Health Concerns Infection Onset Date Last Indicated Resolved Time CoV-Risk 04/08/2024 04/08/2024 04/19/2024 1:22 AM EST documented as of this encounter Care Teams Teacher Selection Specialist Relationship Specialty Start Date End Date Mahendra Delacruz DO [address] [place] [address] PCP - General Internal Medicine 02/19/17 06/19/24 Pcp, Unknown PCP - General 06/20/24 documented as of this encounter Additional Source Comments The information contained in this document represents components of the legal health record. It is not the complete legal health record.[facility]
--- OUTSIDE RECORDS SUMMARY | 2025-01-15 17:02 | XMS_ITS | Encounter Summary ---
Author Organization [facility] Address [address] [place] [address] Phone Care Team Providers Care Poultry Farmer Egg Name Role Phone Mahendra Delacruz DO Primary Care Provider Pcp, Unknown Primary Care Provider Unavailabl e Encounter Details Date Type Department Care Team (Latest Contact Info) Description 03/22/2017 Ancillary Orders Virtual Department [address] [place] [phone] Mitchel Brooks MD [address] [facility] [address] [place] [address] [email or web address] Uncomplicated asthma, unspecified asthma severity, unspecified [...] documented as of this encounter Care Teams Poultry Farmer Egg Relationship Specialty Start Date End Date Mahendra Delacruz DO [address] [place] [address] PCP - General Internal Medicine 02/19/17 06/19/24 Pcp, Unknown PCP - General 06/20/24 documented as of this encounter Additional Source Comments The information contained in this document represents components of the legal health record. It is not the complete legal health record.[facility]
--- OUTSIDE RECORDS SUMMARY | 2025-01-15 17:02 | XMS_ITS | Encounter Summary ---
Author Organization [facility] Address [address] [place] [address] Phone Care Team Providers Care Unix Administrator Name Role Phone Mahendra Delacruz DO Primary Care Provider Pcp, Unknown Primary Care Provider Unavailabl e Encounter Details Date Type Department Care Team (Latest Contact Info) Description 06/11/2021 Transcribe Orders Virtual Department [address] [place] [address] Mahendra Delacruz DO [address] [place] [address] Cervical radiculopathy (Primary Dx) Social History Tobacco Use Types Packs/Day Years [...] on file documented as of this encounter Results * XR CERVICAL SPINE 4-5 VIEWS (07/30/2021 9:42 AM EDT) Anatomical Region Laterality Modality C-spine Computed Radiogr aphy 07/30/2021 1:46 PM EDT Impressions 07/30/2021 1:50 PM EDT Mild levoscoliosis/levocurvature. Mild straightening/reversal of the cervical lordosis which can be seen with muscle strain. Narrative 07/30/2021 1:50 PM EDT XR CERVICAL SPINE 4-5 VIEWS COMPARISON: None FINDINGS: No evidence of acute fracture or malalignment. The vertebral body heights and intervertebral disc spaces are maintained no significant neural foraminal narrowing. Mild levoscoliosis/levocurvature. Mild straightening/reversal of the cervical lordosis which can be seen with muscle strain. The lateral masses of C1 are well aligned. No significant prevertebral soft tissue swelling. Procedure Note Marc Mcadams MD - 07/30/2021 XR CERVICAL SPINE 4-5 VIEWS COMPARISON: None FINDINGS: No evidence of acute fracture or malalignment. The vertebral body heightsand intervertebral disc spaces are maintained no significant neuralforaminal narrowing. Mild levoscoliosis/levocurvature. Mildstraightening/reversal of the cervical lordosis which can be seen withmuscle strain. The lateral masses of C1 are well aligned. No significantprevertebral soft tissue swelling. IMPRESSION: Mild levoscoliosis/levocurvature. Mild straightening/reversal of thecervical lordosis which can be seen with muscle strain. Mahendra Delacruz DO IMG XR SPINE Final Result documented in this encounter Visit Diagnoses Diagnosis Cervical radiculopathy- Primary Brachial neuritis or radiculitis nos Cervical radiculopathy Brachial neuritis or radiculitis nos documented in this encounter Additional Health Concerns Infection Onset Date Last Indicated Resolved Time CoV-Risk 04/08/2024 04/08/2024 04/19/2024 1:22 AM EST documented as of this encounter Care Teams Unix Administrator Relationship Specialty Start Date End Date Mahendra Delacruz DO [address] [place] [address] PCP - General Internal Medicine 02/19/17 06/19/24 Pcp, Unknown PCP - General 06/20/24 documented as of this encounter Additional Source Comments The information contained in this document represents components of the legal health record. It is not the complete legal health record.[facility]
--- OUTSIDE RECORDS SUMMARY | 2025-01-15 17:02 | XMS_ITS | Encounter Summary ---
Author Organization [facility] Address [address] [place] [phone] Phone Care Team Providers Care Retail Representative Name Role Phone Pcp, Unknown Primary Care Provider Unavailabl e Encounter Details Date Type Department Care Team (Late st Contact Info) Description 06/20/2024 Procedure Pass [facility], Ct Scan - [address] [address] Social History Tobacco Use Types Packs/Day Years [...] as food, clothing, or medical care? No 06/20/2024 In the past 12 months have y ou been in a relationship with a person who hurts, threatens, or tries to control you? No 06/20/2024 Are you denied basic needs s uch as food, clothing, or medical care? No 06/20/2024 In the past 12 months have y ou been in a relationship with a person who hurts, threatens, or tries to control you? 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 Wish to be (Past 1 Month) No 025 8:07 PM EDT Mounika Mcqueen RN 2. Non-Specific Active Suici claritza Thoughts (Past 1 Month) No 06/20/2024 8:07 PM EDT Leticia Mcqueen ra, RN 6. Suicidal Behavior (Lifetime) No 8:07 PM EDT Mounika Mcqueen RN documented as of this encounter Plan of Treatment Not on file documented as of this encounter Visit Diagnoses Not on filedocumented in this encounter Care Teams Retail Representative Relationship Specialty Start Date End Date Pcp, Unknown PCP - General 06/20/24 documented as of this encounter Additional Source Comments The information contained in this document represents components of the legal health record. It is not the complete legal health record.[facility]
--- OUTSIDE RECORDS SUMMARY | 2025-01-15 17:02 | XMS_ITS | Encounter Summary ---
Author Organization [facility] Address [address] [place] [phone] Phone Care Team Providers Care Cook Helper Preserves Name Role Phone Mahendra Delacruz DO Primary Care Provider Pcp, Unknown Primary Care Provider Unavailabl e Encounter Details Date Type Department Care Team (Late st Contact Info) Description 11/17/2022 Procedure Pass [facility], Ct Scan - [address] [address] Social History Tobacco Use Types Packs/Day Years [...] 10:19 AM EDT CadCassy lopez RN * [place] Suicide Severity Rating Scale (Screener/Recent Self-Report) Question [...] documented as of this encounter Care Teams Cook Helper Preserves Relationship Specialty Start Date End Date Mahendra Delacruz DO [address] [place] [phone] PCP - General Internal Medicine 02/19/17 06/19/24 Pcp, Unknown PCP - General 06/20/24 documented as of this encounter Additional Source Comments The information contained in this document represents components of the legal health record. It is not the complete legal health record.[facility]
--- OUTSIDE RECORDS SUMMARY | 2025-01-15 17:02 | XMS_ITS | Encounter Summary ---
Author Organization [facility] Address [address] [place] [address] [place] [address] Phone Care Team Providers Care Senior Technical Program Manager Name Role Phone Mahendra Delacruz DO Primary Care Provider Pcp, Unknown Primary Care Provider Unavailabl e Encounter Details Date Type Department Care Team (Late st Contact Info) Description 01/21/2024 Procedure Pass [facility], Ct Scan - [address] [address] Social History Tobacco Use Types Packs/Day Years [...] as food, clothing, or medical care? No 01/21/2024 In the past 12 months have y ou been in a relationship with a person who hurts, threatens, or tries to control you? No 01/21/2024 Are you denied basic needs s uch as food, clothing, or medical care? No 01/21/2024 In the past 12 months have y ou been in a relationship with a person who hurts, threatens, or tries to control you? 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 Wish to be (Past 1 Month) No 01/21/2024 12:38 AM KRISTOPHERT Niurka Epps RN 2. Non-Specific Active Suici claritza Thoughts (Past 1 Month) No 01/21/2024 12:38 AM EDT Zaynab Epps RN 6. Suicidal Behavior (Lifetime) No 12:38 AM KRISTOPHERT Eleanor Epps RN documented as of this encounter Plan of Treatment Not on file documented as of this encounter Visit Diagnoses Not on filedocumented in this encounter Additional Health Concerns Infection Onset Date Last Indicated Resolved Time CoV-Risk 04/08/2024 04/08/2024 04/19/2024 1:22 AM EST documented as of this encounter Care Teams Senior Technical Program Manager Relationship Specialty Start Date End Date Mahendra Delacruz DO [address] [place] [phone] PCP - General Internal Medicine 02/19/17 06/19/24 Pcp, Unknown PCP - General 06/20/24 documented as of this encounter Additional Source Comments The information contained in this document represents components of the legal health record. It is not the complete legal health record.[facility]
--- OUTSIDE RECORDS SUMMARY | 2025-01-15 17:02 | XMS_ITS | Clinical Summary ---
Author Organization [facility] Address [address] [place] [phone] Phone Care Team Providers Care Eligibility Counselor Name Role Phone Pcp, Unknown Primary Care Provider Unavailabl e Allergies Active Allergy Reactions Criticality Noted Date Comments Erythromycin 01/20/2017 Other 03/24/2017 DPT shot Medications albuterol 2.5 mg /3 mL (0.083 %) nebulizer solutionIndicat ions:Asthma Take 3 mL (2.5 mg total) by nebulization 4 (four) times a day as needed. 30 vial 11 0 Active Additional Information Patient not taking.Reported on 12/04/2024 VENTOLIN HFA 90 mcg/actuation inhaler 2 Active omeprazole (PRILOSEC) 20 mg TbEC Take 20 mg by mouth daily before breakfast. Active acetaminophen (TYLENOL) 500 MG tablet Take 1,000 mg by mouth every 8 (eight) hours as needed for pain (specific location in comments). Active ibuprofen (ADVIL,MOTRIN) 800 MG tablet Take 1 tablet (800 mg total) by mouth every 8 (eight) hours as needed for pain (specific location in comments). 21 tablet 4 Active Additional Information Patient not taking.Reported on 11/19/2023 labetaloL (TRANDATE) 100 MG tablet Take 50 mg by mouth 2 (two) times a day. Active tiZANidine (ZANAFLEX) 4 MG tablet Take 1 tablet (4 mg total) by mouth every 6 (six) hours as needed. 15 tablet 5 Active Additional Information Patient not taking.Reported on 12/04/2024 LORazepam (ATIVAN) 1 MG tablet Take 1 mg by mouth. 5 Active Active Problems Problem Noted Date Diagnosed Date Asthma 11/19/2022 Assessment & Plan (11/19/2022 4:58 PM EDT): No signs of acute exacerbation. Lungs clear on exam. Home medications available if needed with albuterol inhaler and nebulizer. Cardiomyopathy 11/19/2022 Overview (11/19/2022): LVEF 40-45% 03/2022 Assessment & Plan (11/20/2022 9:49 AM EDT): Known depressed EF, last echocardiogram showed EF 40 to 45%. Active, at functional baseline. Not on any cardiac medications at baseline. Follows infrequently with [facility] cardiology. Will monitor closely for signs of volume overload/pulmonary edema. Reflux esophagitis 11/19/2022 Assessment & Plan (11/19/2022 4:59 PM EDT): PPI continued with formulary substitution with pantoprazole. Oral infection due to bacteria 11/19/2022 Assessment & Plan (11/20/2022 9:49 AM EDT): Patient presenting with worsening facial swelling and pain and CT neck imaging suggestive of an odontogenic facial cellulitis. Case was discussed with covering physician at [facility] Oral surgery by the ED physician. ED provider communicated that consult was expected on the night of 11/20, patient kept n.p.o. overnight. -Call placed to [facility] oral surgery, awaiting MD callback and consult -Remains n.p.o. in case of possible intervention -1 dose of Unasyn was given in the ED. Due to pharmacy reported shortage of Unasyn, he was transitioned to extended infusion IV Zosyn every 8 hours. -Pain management with scheduled Tylenol and Toradol, with IV morphine available for breakthrough severe pain -IV fluids running. Additional 1 L fluid bolus given today with continuous fluid rate increased to 150 cc/h -Antiemetic available if needed -RN to monitor closely for worsening signs of airway obstruction, trismus, stridor, etc. that could require urgent ICU transfer. Palpitations 08/20/2021 PVC's (premature ventricular contractions) 08/20 Encounters Date Type Department Care Team Description 12/04/2024 2:20 PM EDT Office Visit [facility] at [address] [address] Deb Glass, KARTHIK Chronic otorrhea of right ear (Primary Dx); Chronic ear pain, right; Chronic otitis media of right ear with anterior perforation of tympanic membrane from Last 3 Months Immunizations Immunization Administration Dates Next Due DT 07/05/1996, 3,03/03/1992,1991,09/17 Hepatitis B 01/03/1996,08/01/1995,06/28/1995 Hib,HbOC 09/29/1992,03/03/1992,1991 ,1991 MMR 06/28/1995,09/29/1992 Polio - OPV 07/05/1996,02/01/1993,1991 ,1991 Td, unspecified formulation 12/18/2002 Varicella 06/28/1995 Family History Medical History Relation Comments No Known Problems Father No Known Problems Mother Relation Status Comments Father Alive Mother Alive Social History Tobacco Use Types Packs/Day Years Used Date Smoking Tobacco: Former Smokeless Tobacco: Former Quit: 2015 Tobacco Cessation:Counseling Given: Not Answered Alcohol Use Standard Drinks/Week Comments Yes 0 [...] 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 file Not on file Last Filed Vital Signs Vital Sign Reading Time Taken Comments Blood Pressure 143/99 12/04/2024 2:15 PM EDT Pulse 100 12/04/2024 2:15 PM EDT Temperature 37.4 C (99.3 F) 12/04/2024 2:15 PM EDT Respiratory Rate 24 12/04/2024 2:15 PM EDT Oxygen Saturation 98% 12/04/2024 2:15 PM EDT Inhaled Oxygen Concentration - - Weight 154.2 kg (340 lb) 12/04/2024 2:15 PM EDT Height 180.3 cm (5' 11 ) 12/04/2024 2:15 PM EDT Body Mass Index 47.42 12/04/2024 2:15 PM EDT Plan of Treatment Health Maintenance Due Date Last Done Comments DEPRESSION SCREENING 2003 SMOKING Hx and SMOKELESS TOBACCO SCREENING 06/25/2004 HEPATITIS C SCREENING 06/25/2009 HIV ONE-TIME SCREENING (18-65 YEARS) 06/25/2009 PNEUMOCOCCAL VACCINES (0-49 years) (1 of 2 - PCV) 06/25/2010 Adult Td,Tdap Booster 12/18/2012 12/18/2002 INFLUENZA VACCINE (#1) 2024 COVID-19 VACCINE ( - season) 2024 HIB VACCINES Completed 09/29/1992, 02/17, 1991, Additional history exists HEPATITIS A VACCINES Aged Out No long er eligible based on patient's age to complete this topic MENINGOCOCCAL VACCINES (ACWY) Aged Out No longer eligible based on patient's age to complete this topic MENINGOCOCCAL VACCINES (B) Aged Out N o longer eligible based on patient's age to complete this topic Medical Devices Not on file Insurance WELLSENSE NON NSPG PCP SILVER CLARITY CONNECTORCARE BARREENSE NON NSPG PCP SILVER CLARITY CONNECTORCARE WELLSENSE NON NSPG PCP SILVER CLARITY CONNECTORCARE WELLSENSE NON NSPG PCP SILVER CLARITY CONNECTORCARE WELLSENSE NON NSPG PCP SILVER CLARITY CONNECTORCARE WELLSENSE NON NSPG PCP SILVER CLARITY CONNECTORCARE WELLSENSE NON NSPG PCP SILVER CLARITY CONNECTORCARE Advance Directives For more information, please contact: [phone] (9AM - 5PM [facility], Monday-Monday) Documents on File Type Date Recorded Patient Stem Maker Expl anation Healthcare Proxy 11/23/2022 11:57 AM * Full Code (Latest Code Status on File) Date Activated Date Inactivated Comments 11/19/2022 4:51 PM Question Answer Comments Code Status Confirmed With: Patient Care Teams Eligibility Counselor Relationship Specialty Start Date End Date Pcp, Unknown PCP - General 06/20/24 Additional Source Comments The information contained in this document represents components of the legal health record. It is not the complete legal health record.[facility]
== END 2025-01-15 15:05 | disposition home or self-care (01) ==
LOC: HO.HSMS 13:24
PROVIDERS: PCP Internal Medicine; Visit Provider Nurse Practitioner Family
DX: R51.9 Headache, unspecified (principal); R51.0 Headache with orthostatic component, not elsewhere classified; M54.2 Cervicalgia; R42 Dizziness and giddiness; H72.91 Unspecified perforation of tympanic membrane, right ear; E66.01 Morbid (severe) obesity due to excess calories
CPT/HCPCS: 99204

== ENCOUNTER → 2025-01-15 13:24 | Outpatient (BNVA) | payer OTHER, SELFPAY | PROVIDERS: PCP Internal Medicine; Visit Provider Nurse Practitioner Family | DX: M54.2 Cervicalgia (principal); R51.0 Headache with orthostatic component, not elsewhere classified; R42 Dizziness and giddiness; H72.91 Unspecified perforation of tympanic membrane, right ear; E66.01 Morbid (severe) obesity due to excess calories; Z68.43 Body mass index [BMI] 50.0-59.9, adult | CPT/HCPCS: 99202 ==